=== PATIENT | male | born 1940 | race Caucasian/White ===

== ENCOUNTER 2018-01-06 14:55 | Inpatient (IN) ==
[2018-01-06] MEDS ORDERED: Aspirin 325 MG TABLET PO ONE (15:13)
[2018-01-06] MEDS ORDERED: methylPREDNISolone 125 MG/2 ML VIAL IVP ONE (15:13)
[2018-01-06] MEDS ORDERED: Ipratropium/Albuterol Neb 3 ML IH ONE (15:13)
--- NOTE | 2018-01-06 15:13 | Emergency Department Note ---
Disposition Clinical Impression: Acute exacerbation of chronic obstructive airways disease, Hypoxia Chest pain Qualifiers: Chest pain type: unspecified Qualified Code(s): R07.9 - Chest pain, unspecified Aspiration pneumonia Qualifiers: Aspiration pneumonia type: unspecified Laterality: bilateral Lung location: lower lobe of lung Qualified Code(s): J69.0 - Pneumonitis due to inhalation of food and vomit Disposition: Admitted As Inpatient Condition: Fair Referrals: All Odell DO [Primary Care Provider] - Forms: ED Satisfaction Letter Time of Disposition: 19:32 SOB HPI - General Chief Complaint: ED Shortness of Breath/Dyspnea Stated Complaint: ANNE Time Seen by Provider: 01/06/18 15:12 Source: patient Mode of arrival: ambulatory Limitations: no limitations Nursing Notes Reviewed: Yes Vital Signs Reviewed: Yes - History of Present Illness Patient is an 77-year-old male with past medical history of HTN, cataract surgery yesterday morning, COPD. He uses daily albuterol inhalers, not currently on steroids, occasional home O2 use. He presents today due to shortness of breath and substernal chest pain only during deep inspiration. He states that he had cataract surgery yesterday. He felt fine yesterday and then today he has felt short of breath. He does admit to mild productive cough as well. He states that he usually does not require home O2 but does have it as backup as needed. He has required O2 today for symptomatic relief of shortness of breath. He states that it is progressively worsening. Denies any other nausea, vomiting, fevers, diarrhea, abdominal pain. No previous TN or stents. - Related Data Home Medications Medication Instructions Recorded Confirmed Allopurinol [Zyloprim 100 MG] 100 mg PO DAILY 01/06/18 01/06/18 Aspirin Enteric Coated [Aspirin EC] 81 mg PO DAILY 01/06/18 01/06/18 Budesonide/Formoterol 80/4.5 2 puff IH BID 01/06/18 01/06/18 [Symbicort 80/4.5] Gatifloxacin [Zymaxid] 1 drop RIGHT EYE BID 01/06/18 01/06/18 Ipratropium Neb [Atrovent Neb] 0.5 mg IH Q6H 01/06/18 01/06/18 Ketorolac OPTH Soln [Acular] 1 drop RIGHT EYE BID 01/06/18 01/06/18 Levalbuterol Neb [Xopenex Neb] 0.63 mg IH Q6H 01/06/18 01/06/18 Olmesartan Medoxomil [Olmesartan 40 mg PO DAILY 01/06/18 01/06/18 Medoxomil] PrednisoLONE Acetate 1% Opth 1 drop RIGHT EYE BID 01/06/18 01/06/18 [PredFORTE 1%] Vit C/E/Zn/Coppr/Lutein/Zeaxan 1 each PO BID 01/06/18 01/06/18 [Preservision Areds 2 Softgel] hydroCHLOROthiazide 25 mg PO DAILY 01/06/18 01/06/18 [Hydrochlorothiazide] Allergies Allergy/AdvReac Type Severity Reaction Status Date / Time Powdered Inhalers Allergy Difficulty Uncoded 01/06/18 18:27 Breathing All systems ED: reviewed and negative except as stated. Constitutional: Denies: fever Cardiovascular: Reports: chest pain. Denies: palpitations Respiratory: Reports: dyspnea, wheezes. Denies: cough Gastrointestinal: Denies: abdominal pain, nausea, vomiting, diarrhea, constipation Genitourinary: Denies: urgency, dysuria, frequency, hematuria, discharge Musculoskeletal: Denies: back pain, neck pain Neurological: Denies: headache, weakness, numbness, paresthesias Past Medical History - Past Medical History Attestation: Yes The following information was validated with the patient. Source: patient Medical history: Reports: COPD Psychiatric history: Reports: no psych history - Social History Smoking Status: Former smoker Smokeless Tobacco Status: No Alcohol use: Reports: none Drug use: Reports: none Physical Exam - General Limitations: no limitations General appearance: alert, in distress - Head Head exam: atraumatic, normocephalic, normal inspection - Eye Eye exam: Present: normal appearance, PERRL, EOMI - ENT ENT exam: normal exam, normal oropharynx, mucous membranes moist - Neck Neck exam: Present: normal inspection, full ROM, trachea midline - Chest Chest inspection: Present: normal inspection, symmetric chest wall rise - Respiratory Respiratory exam: Present: accessory muscle use, other (Decreased aeration throughout with wheezing.). Absent: stridor - Cardiovascular Cardiovascular exam: Present: normal rhythm, tachycardia, normal heart sounds - Abdominal Exam Abdominal exam: Present: soft, Non-Tender. Absent: tenderness, distention, guarding, rebound, rigidity - Neurological Exam Neurological exam: Present: alert, oriented X3 - Psychiatric Psychiatric exam: Present: normal affect, normal mood - Skin Skin exam: Present: warm, dry, intact, normal color Course Course Narrative: Patient was tachycardic and hypoxic on presentation. Patient was placed on 2 L nasal cannula oxygen to keep saturation above 88%. Otherwise, the rest of the vitals were within normal limits. Physical exam showed a patient in mild to moderate respiratory distress, using accessory muscles, decreased aeration throughout. Otherwise, sinus tachycardia with no murmurs, abdomen soft and nontender. Currently concern for COPD exacerbation versus ACS. We will give the patient DuoNeb 3, Solu-Medrol, aspirin 325. We will also perform basic blood work, troponin, EKG, chest x-ray. He will likely require admission. BiPAP is on standby at this time as patient has increased work of breathing at this time. White blood cell count of 23.3. Troponin negative. The rest of the basic blood work was not concerning. Chest x-ray negative for any acute cardiopulmonary process. I discussed the patient's EKG with ems coordinator, Dr. Yudy Lyn. EKG showed ST depression in lead V3 and an incomplete right bundle-branch block. There is no previous EKG for comparison. We discussed the patient's presentation, vitals, lab results and imaging results along with EKG. She felt that at this time the patient did not meet STEMI criteria and recommended medical admission for further care. No acute intervention necessary at this time. In the meantime, will obtain CTA of the chest for further assessment of pulmonary embolism due to clear chest x-ray, tachycardia and hypoxia. 19:28 CTA positive for bibasilar pneumonia, suspicious for aspiration pneumonia. Otherwise no acute PE. Started the patient on Zosyn. I talked with the hospitalist about considering this possibly healthcare acquired pneumonia versus just aspiration pneumonia. Currently, I have only started the patient on Zosyn as I believe this is more aspiration in nature. Hospitalist agrees and did not want me to start vancomycin at this time. Chest X-Ray 01/06/18 15:12 IMPRESSION: Emphysematous changes. No focal airspace consolidation or pulmonary vascular congestion. D/ / Onel Ayoub / Onel Ayoub Interpreting Provider: Onel Ayoub Chest CTA 01/06/18 15:59 IMPRESSION: Examination limited by motion artifact. No evidence of acute pulmonary embolism within limitations of the examination. Bibasilar consolidation consistent with pneumonia. Small airway opacification likely mucous plugging. Alternatively, this could represent aspiration. There is no significant pleural effusion. D/ / Darshan Hoskins MD / Darshan Hoskins MD Interpreting Provider: Darshan Hoskins MD Chest X-Ray 01/06/18 15:12 IMPRESSION: Emphysematous changes. No focal airspace consolidation or pulmonary vascular congestion. D/ / Onel Ayoub / Onel Ayoub Interpreting Provider: Onel Ayoub Vital Signs Temperature 99.5 F 01/06/18 14:56 Pulse Rate 126 01/06/18 14:56 Respiratory Rate 34 01/06/18 14:56 Blood Pressure 166/89 01/06/18 14:56 O2 Sat by Pulse Oximetry 88 01/06/18 14:56 Temperature 99.5 F 01/06/18 14:56 Pulse Rate 116 01/06/18 17:53 Respiratory Rate 16 01/06/18 17:53 Blood Pressure 133/81 01/06/18 17:53 O2 Sat by Pulse Oximetry 94 01/06/18 17:53 Oxygen Delivery Oxygen Delivery Nasal Cannula Shortness of Breath/Dyspnea - MDM Narrative Medical decision making narrative: Patient was tachycardic and hypoxic on presentation. Patient was placed on 2 L nasal cannula oxygen to keep saturation above 88%. Otherwise, the rest of the vitals were within normal limits. Physical exam showed a patient in mild to moderate respiratory distress, using accessory muscles, decreased aeration throughout. Otherwise, sinus tachycardia with no murmurs, abdomen soft and nontender. Currently concern for COPD exacerbation versus ACS. We will give the patient DuoNeb 3, Solu-Medrol, aspirin 325. We will also perform basic blood work, troponin, EKG, chest x-ray. He will likely require admission. BiPAP is on standby at this time as patient has increased work of breathing at this time. White blood cell count of 23.3. Troponin negative. The rest of the basic blood work was not concerning. Chest x-ray negative for any acute cardiopulmonary process. I discussed the patient's EKG with ems coordinator, Dr. Yudy Lyn. EKG showed ST depression in lead V3 and an incomplete right bundle-branch block. There is no previous EKG for comparison. We discussed the patient's presentation, vitals, lab results and imaging results along with EKG. She felt that at this time the patient did not meet STEMI criteria and recommended medical admission for further care. No acute intervention necessary at this time. In the meantime, will obtain CTA of the chest for further assessment of pulmonary embolism due to clear chest x-ray, tachycardia and hypoxia. 19:28 CTA positive for bibasilar pneumonia, suspicious for aspiration pneumonia. Otherwise no acute PE. Started the patient on Zosyn. I talked with the hospitalist about considering this possibly healthcare acquired pneumonia versus just aspiration pneumonia. Currently, I have only started the patient on Zosyn as I believe this is more aspiration in nature. Hospitalist agrees and did not want me to start vancomycin at this time. - Medical Records Medical records reviewed: Yes I reviewed the patient's medical records. - Lab Data Lab results reviewed: Yes I reviewed the patient's lab results. Result diagrams: 01/06/18 15:18 01/06/18 15:18 Lab Results 01/06/18 01/06/18 01/06/18 Range/Units 15:18 15:18 15:18 WBC 23.3 H (4.3-11.1) K/mcL RBC 5.02 (4.19-5.50) M/mcL Hgb 15.1 (12.9-16.9) g/dL Hct 45.5 (37.5-50.1) % MCV 90.6 (83.0-100.0) fL MCH 30.1 (28.0-33.3) pg MCHC 33.2 (31.6-35.5) g/dL RDW 13.3 (11.5-14.5) % Plt Count 271 (140-400) K/mcL MPV 9.0 L (9.4-12.4) fL Immature Gran % 0.6 (0-4) % Seg Neutrophils % 89.7 % Lymphocytes % 3.6 % Monocytes % 5.2 % Eosinophils % 0.6 % Basophils % 0.3 % Neutrophils # 20.9 H (1.6-8.9) K/mcL Lymphocytes # 0.9 (0.6-4.6) K/mcL Monocytes # 1.2 (0.0-1.3) K/mcL Eosinophils # 0.2 (0.0-0.6) K/mcL Basophils # 0.1 (0.0-0.2) K/mcL Sodium 135 L (136-145) mEq/L Potassium 3.8 (3.5-5.1) mEq/L Chloride 97 L (98-107) mEq/L Carbon Dioxide 25 (23-29) mEq/L BUN 16 (8-23) mg/dL Creatinine 0.92 (0.70-1.30) mg/dL Est GFR ( Amer) > 60 (> 60) Est GFR (Non-Af Amer) > 60 (> 60) BUN/Creatinine Ratio 17 (6-26) Glucose 154 H (70-105) mg/dL Calculated Osmolality 284 (280-300) Lactic Acid 3.1 H (0.5-2.2) mmol/L Calcium 9.7 (8.6-10.3) mg/dL Troponin I < 0.03 (< 0.04) ng/mL B-Natriuretic Peptide (Less than 100) pg/mL Urine Color (Yellow) Urine Clarity (Clear) Urine pH (5.0-8.0) pH Units Ur Specific [place] (1.010-1.025) Urine Protein (Neg-Trace) mg/dL Urine Glucose (UA) (Normal) mg/dL Urine Ketones (Negative) mg/dL Urine Blood (Negative) Urine Nitrite (Negative) Urine Bilirubin (Negative) Urine Urobilinogen (Normal) mg/dL Ur Leukocyte Esterase (Negative) Ur Culture Indicated? (NO) 01/06/18 01/06/18 01/06/18 Range/Units 15:18 15:49 17:17 WBC (4.3-11.1) K/mcL RBC (4.19-5.50) M/mcL Hgb (12.9-16.9) g/dL Hct (37.5-50.1) % MCV (83.0-100.0) fL MCH (28.0-33.3) pg MCHC (31.6-35.5) g/dL RDW (11.5-14.5) % Plt Count (140-400) K/mcL MPV (9.4-12.4) fL Immature Gran % (0-4) % Seg Neutrophils % % Lymphocytes % % Monocytes % % Eosinophils % % Basophils % % Neutrophils # (1.6-8.9) K/mcL Lymphocytes # (0.6-4.6) K/mcL Monocytes # (0.0-1.3) K/mcL Eosinophils # (0.0-0.6) K/mcL Basophils # (0.0-0.2) K/mcL Sodium (136-145) mEq/L Potassium (3.5-5.1) mEq/L Chloride (98-107) mEq/L Carbon Dioxide (23-29) mEq/L BUN (8-23) mg/dL Creatinine (0.70-1.30) mg/dL Est GFR ( Amer) (> 60) Est GFR (Non-Af Amer) (> 60) BUN/Creatinine Ratio (6-26) Glucose (70-105) mg/dL Calculated Osmolality (280-300) Lactic Acid 2.5 H (0.5-2.2) mmol/L Calcium (8.6-10.3) mg/dL Troponin I (< 0.04) ng/mL B-Natriuretic Peptide 40 (Less than 100) pg/mL Urine Color Yellow (Yellow) Urine Clarity Clear (Clear) Urine pH 6.0 (5.0-8.0) pH Units Ur Specific [place] 1.023 (1.010-1.025) Urine Protein Negative (Neg-Trace) mg/dL Urine Glucose (UA) Normal (Normal) mg/dL Urine Ketones Trace H (Negative) mg/dL Urine Blood Negative (Negative) Urine Nitrite Negative (Negative) Urine Bilirubin Negative (Negative) Urine Urobilinogen Normal (Normal) mg/dL Ur Leukocyte Esterase Negative (Negative) Ur Culture Indicated? NO (NO) - Radiology Data Radiology results reviewed: Yes I reviewed the patient's radiology results. Chest X-Ray 01/06/18 15:12 IMPRESSION: Emphysematous changes. No focal airspace consolidation or pulmonary vascular congestion. D/ / Onel Ayoub / Onel Ayoub Interpreting Provider: Onel Ayoub Chest CTA 01/06/18 15:59 IMPRESSION: Examination limited by motion artifact. No evidence of acute pulmonary embolism within limitations of the examination. Bibasilar consolidation consistent with pneumonia. Small airway opacification likely mucous plugging. Alternatively, this could represent aspiration. There is no significant pleural effusion. D/ / Darshan Hoskins MD / Darshan Hoskins MD Interpreting Provider: Darshan Hoskins MD - EKG Data EKG attestation: Yes I reviewed and interpreted this EKG. EKG results narrative: 01/06/2018 at 15:40. Sinus tachycardia. Rate 133. ME 156. QRS 138. QTC 406. Left axis deviation. There is ST depression in lead V3. Otherwise, no ST elevation. Possible incompletely right bundle branch block. No previous EKG for comparison. S.B.A.R. - S.B.A.R. Situation: Demographics, MOA Background: Presenting Complaint, Relevant PMH, Meds, & Allergies Assessment: Vital Signs, Course and respsone to treatment, Exam Concerns, Patient/Family Expectation, Pertinant Lab Results Recommendation: Barrier(s) to disposition, Recommendation based on pending studies, treatments, or consults S.B.A.R. Report Given to: Dr. Nori PraterAThomas Repor Time: 19:32 Attestation Statement - Attestation Attestation: I, Wyatt Kothari DO, examined this patient [id number] and my medical decision-making was reviewed with Dr. Kendall Mar, Resident Physician. I agree with the documented findings, disposition and treatment plan as described except to the extent set forth below. Please see my progress notes for details.
[2018-01-06 15:27] LABS: Basophils # 0.1 K/mcL (0.0-0.2); Basophils % 0.3 %; Eosinophils # 0.2 K/mcL (0.0-0.6); Eosinophils % 0.6 %; Hematocrit 45.5 % (37.5-50.1); Hemoglobin 15.1 g/dL (12.9-16.9); Immature Granulocytes % 0.6 % (0-4); Lymphocytes # 0.9 K/mcL (0.6-4.6); Lymphocytes % 3.6 %; Mean Corpuscular HGB Conc 33.2 g/dL (31.6-35.5); Mean Corpuscular Hemoglobin 30.1 pg (28.0-33.3); Mean Corpuscular Volume 90.6 fL (83.0-100.0); Monocytes # 1.2 K/mcL (0.0-1.3); Monocytes % 5.2 %; Neutrophils # 20.9 K/mcL (1.6-8.9); Platelet Count 271 K/mcL (140-400); Red Blood Count 5.02 M/mcL (4.19-5.50); Red Cell Distribution Width 13.3 % (11.5-14.5); Segmented Neutrophils % 89.7 %
[2018-01-06 15:51] LABS: BUN/Creatinine Ratio 17 (6-26); Blood Urea Nitrogen 16 mg/dL (8-23); Calcium 9.7 mg/dL (8.6-10.3); Carbon Dioxide 25 mEq/L (23-29); Chloride 97 mEq/L (98-107); Glucose 154 mg/dL (70-105); Osmolality,Calculated 284 (280-300); Potassium 3.8 mEq/L (3.5-5.1); Sodium 135 mEq/L (136-145); eGFR For African Americans > 60 (> 60); eGFR For Non-African Americans > 60 (> 60)
[2018-01-06 15:52] LABS: Troponin I < 0.03 ng/mL (< 0.04)
[2018-01-06 16:02] LABS: Bilirubin,Urine Negative (Negative); Blood,Urine Negative (Negative); Clarity,Urine Clear (Clear); Color,Urine Yellow (Yellow); Glucose,Urine (UA) Normal (Normal); Ketones,Urine Trace mg/dL (Negative); Leukocyte Esterase,Urine Negative (Negative); Nitrite,Urine Negative (Negative); Protein,Urine Negative (Neg-Trace); Specific Gravity,Urine 1.023 (1.010-1.025); Urobilinogen,Urine Normal (Normal)
--- NOTE | 2018-01-06 16:02 | Emergency Department Note ---
Disposition Clinical Impression: Acute exacerbation of chronic obstructive airways disease, Chest pain, Aspiration pneumonia Disposition: Admitted As Inpatient Condition: Fair Referrals: All Odell DO [Primary Care Provider] - Forms: ED Satisfaction Letter Time of Disposition: 17:41 General Adult HPI - General Chief complaint: ED Shortness of Breath/Dyspnea Stated complaint: ANNE Time Seen by Provider: 01/06/18 15:12 Source: patient Mode of arrival: ambulatory Limitations: no limitations - History of Present Illness Pain Scale: 0 - Related Data Allergies Allergy/AdvReac Type Severity Reaction Status Date / Time No Known Allergies Allergy Verified 01/06/18 14:59 Constitutional: Denies: fever Cardiovascular: Reports: chest pain. Denies: palpitations Respiratory: Reports: dyspnea, wheezes. Denies: cough Gastrointestinal: Denies: abdominal pain, nausea, vomiting, diarrhea, constipation Genitourinary: Denies: urgency, dysuria, frequency, hematuria, discharge Musculoskeletal: Denies: back pain, neck pain Neurological: Denies: headache, weakness, numbness, paresthesias Past Medical History - Past Medical History Medical history: Reports: COPD Psychiatric history: Reports: no psych history - Social History Smoking Status: Former smoker Smokeless Tobacco Status: No Alcohol use: Reports: none Drug use: Reports: none Physical Exam - General Limitations: no limitations General appearance: alert, in distress Course Vital Signs Temperature 99.5 F 01/06/18 14:56 Pulse Rate 126 01/06/18 14:56 Respiratory Rate 34 01/06/18 14:56 Blood Pressure 166/89 01/06/18 14:56 O2 Sat by Pulse Oximetry 88 01/06/18 14:56 Temperature 99.5 F 01/06/18 14:56 Pulse Rate 123 01/06/18 17:12 Respiratory Rate 20 01/06/18 17:12 Blood Pressure 153/77 01/06/18 17:12 O2 Sat by Pulse Oximetry 94 01/06/18 17:12 Oxygen Delivery Oxygen Delivery Nasal Cannula Medical Decision Making - Lab Data Result diagrams: 01/06/18 15:18 01/06/18 15:18 Lab Results 01/06/18 01/06/18 01/06/18 Range/Units 15:18 15:18 15:18 WBC 23.3 H (4.3-11.1) K/mcL RBC 5.02 (4.19-5.50) M/mcL Hgb 15.1 (12.9-16.9) g/dL Hct 45.5 (37.5-50.1) % MCV 90.6 (83.0-100.0) fL MCH 30.1 (28.0-33.3) pg MCHC 33.2 (31.6-35.5) g/dL RDW 13.3 (11.5-14.5) % Plt Count 271 (140-400) K/mcL MPV 9.0 L (9.4-12.4) fL Immature Gran % 0.6 (0-4) % Seg Neutrophils % 89.7 % Lymphocytes % 3.6 % Monocytes % 5.2 % Eosinophils % 0.6 % Basophils % 0.3 % Neutrophils # 20.9 H (1.6-8.9) K/mcL Lymphocytes # 0.9 (0.6-4.6) K/mcL Monocytes # 1.2 (0.0-1.3) K/mcL Eosinophils # 0.2 (0.0-0.6) K/mcL Basophils # 0.1 (0.0-0.2) K/mcL Sodium 135 L (136-145) mEq/L Potassium 3.8 (3.5-5.1) mEq/L Chloride 97 L (98-107) mEq/L Carbon Dioxide 25 (23-29) mEq/L BUN 16 (8-23) mg/dL Creatinine 0.92 (0.70-1.30) mg/dL Est GFR ( Amer) > 60 (> 60) Est GFR (Non-Af Amer) > 60 (> 60) BUN/Creatinine Ratio 17 (6-26) Glucose 154 H (70-105) mg/dL Calculated Osmolality 284 (280-300) Lactic Acid 3.1 H (0.5-2.2) mmol/L Calcium 9.7 (8.6-10.3) mg/dL Troponin I < 0.03 (< 0.04) ng/mL B-Natriuretic Peptide (Less than 100) pg/mL Urine Color (Yellow) Urine Clarity (Clear) Urine pH (5.0-8.0) pH Units Ur Specific [place] (1.010-1.025) Urine Protein (Neg-Trace) mg/dL Urine Glucose (UA) (Normal) mg/dL Urine Ketones (Negative) mg/dL Urine Blood (Negative) Urine Nitrite (Negative) Urine Bilirubin (Negative) Urine Urobilinogen (Normal) mg/dL Ur Leukocyte Esterase (Negative) Ur Culture Indicated? (NO) 01/06/18 01/06/18 Range/Units 15:18 15:49 WBC (4.3-11.1) K/mcL RBC (4.19-5.50) M/mcL Hgb (12.9-16.9) g/dL Hct (37.5-50.1) % MCV (83.0-100.0) fL MCH (28.0-33.3) pg MCHC (31.6-35.5) g/dL RDW (11.5-14.5) % Plt Count (140-400) K/mcL MPV (9.4-12.4) fL Immature Gran % (0-4) % Seg Neutrophils % % Lymphocytes % % Monocytes % % Eosinophils % % Basophils % % Neutrophils # (1.6-8.9) K/mcL Lymphocytes # (0.6-4.6) K/mcL Monocytes # (0.0-1.3) K/mcL Eosinophils # (0.0-0.6) K/mcL Basophils # (0.0-0.2) K/mcL Sodium (136-145) mEq/L Potassium (3.5-5.1) mEq/L Chloride (98-107) mEq/L Carbon Dioxide (23-29) mEq/L BUN (8-23) mg/dL Creatinine (0.70-1.30) mg/dL Est GFR ( Amer) (> 60) Est GFR (Non-Af Amer) (> 60) BUN/Creatinine Ratio (6-26) Glucose (70-105) mg/dL Calculated Osmolality (280-300) Lactic Acid (0.5-2.2) mmol/L Calcium (8.6-10.3) mg/dL Troponin I (< 0.04) ng/mL B-Natriuretic Peptide 40 (Less than 100) pg/mL Urine Color Yellow (Yellow) Urine Clarity Clear (Clear) Urine pH 6.0 (5.0-8.0) pH Units Ur Specific [place] 1.023 (1.010-1.025) Urine Protein Negative (Neg-Trace) mg/dL Urine Glucose (UA) Normal (Normal) mg/dL Urine Ketones Trace H (Negative) mg/dL Urine Blood Negative (Negative) Urine Nitrite Negative (Negative) Urine Bilirubin Negative (Negative) Urine Urobilinogen Normal (Normal) mg/dL Ur Leukocyte Esterase Negative (Negative) Ur Culture Indicated? NO (NO) Attestation Statement - Attestation Attestation: I, Wyatt Kothari DO, examined this patient [id number] and my medical decision-making was reviewed with Dr. Kendall Mar, Resident Physician. I agree with the documented findings, disposition and treatment plan as described except to the extent set forth below. Please see my progress notes for details. 77-year-old male presents emergency room for evaluation of cough congestion and shortness of breath. Patient Lasix surgery completed yesterday for which he was sedated for approximately 3 hours. Since then he has had some difficulty with breathing and pain with inspiration. Patient does have a history of COPD. Denies any specific cardiac history. He has never been seen at this facility before. Currently denying fevers chills nausea vomiting or diarrhea. Denies any headache or vision change. He does have pain with deep inspiration. He says that when he breathes out or exhales he does not have any pain at all. He only has pain or discomfort when he breathes in. It is over the right chest wall. Patient otherwise is resting in the bed at this time he does appear to be in some moderate discomfort at this point. He also has some respiratory distress. Breathing treatments and steroids will be started. Antibiotic will be withheld until we find an infectious etiology. Patient's heart rate was initially 126 with concern for possible postsurgical related issue. CBC chemistry, troponin and urinalysis. Patient's chest x-ray is completed and does not show any focal signs of consolidation or pneumothorax. CT angiography of the chest will be completed looking for pulmonary emboli versus infection at this point. Patient is still persistently tachycardic. Breathing treatments were ordered. Breathing treatments have helped some of the pain and difficulty with deep inspiration this time. Patient will most likely need admission to the hospital for further evaluation treatment. See detailed documentation of the physical exam, medical intervention, medical decision-making and disposition in the resident physician's note. No critical care provider this patient's treatment course at this time. Patient does have diminished breath sounds bilaterally on evaluation the lungs. Heart is tachycardic but regular. Abdomen is soft nontender nondistended with no guarding no rigidity. Patient has no signs of pitting edema or swelling. 1600 Patient has tachycardia on EKG. There is some concern for possible ST segment depression in lead V3 no visible signs of ST segment elevation. This EKG will be sent onto his medical assistant dermatology for their review currently he does not meet STEMI criteria based on initial EKG but there is no comparison study. This was reviewed with the on-call medical assistant dermatology Dr. Yudy Lyn. She did not feel there is any diagnostic criteria based on the review. 1735 Patient found to have what appears to be consolidation consistent with pneumonia. There is also concern for possible mucus plugging versus aspiration. Patient will be covered for aspiration pneumonia admitted to hospital secondary to tachycardia hypoxia and increased work of breathing and chest discomfort. Aspirin was given here in the emergency room. EKG was nondiagnostic at this time.
[2018-01-06] MEDS ORDERED: Piperacillin/Tazobactam 3.375 GM in 0.9 % Sodium Chloride Mini Bag 100 ML IVPB ONE (17:39)
--- NOTE | 2018-01-06 20:46 | Internal Med History&Physical ---
Date of Encounter: 01/06/18 Time of Encounter: 19:00 Assessment and Plan (1) Hypoxia Current visit: Yes Status: Acute -In the ER, patient was found to be in acute hypoxic respiratory failure secondary to bibasilar pneumonia -Continue supplemental oxygenation and wean as tolerates. (2) Aspiration pneumonia Current visit: Yes Status: Acute -In the ER, CT of the chest showed bibasilar consolidation consistent with pneumonia -Due to concerns for aspiration pneumonia we will continue IV Zosyn started in the ER. Qualifiers: Aspiration pneumonia type: unspecified Laterality: bilateral Lung location: lower lobe of lung Qualified Code(s): J69.0 - Pneumonitis due to inhalation of food and vomit (3) Acute exacerbation of chronic obstructive airways disease Current visit: Yes Status: Acute -Secondary to above -Will continue duo nebs with oral prednisone (4) Gout Current visit: Yes Status: Acute -Continue home dose of allopurinol Qualifiers: Qualified Code(s): M10.9 - Gout, unspecified (5) DVT prophylaxis Current visit: Yes Status: Acute SCD prophylaxis Internal Medicine - H&P: HPI Chief complaint: Shortness of breath Admitted From: Home Plans for Post Hospital Care: Home History of present illness: Patient is a 77-year-old male with past medical history significant for COPD, hypertension and gout who presents to the ER on 01/06/18 due to shortness of breath. Patient reports of having cataract surgery on right eye on 01/05/18 where he states that he was lying on his back for hours during the surgery. Patient reports that when he woke up on 01/06/18 (POD#1) he was short of breath with productive cough and decided to come to the ER for evaluation. In the ER, patient was found to be in acute hypoxic respiratory failure and CT of the chest showed bibasilar consolidation consistent with pneumonia; patient also found to have leukocytosis with white blood cell count 22.3. Patient was started on IV Zosyn in the ER and will be admitted to the medical surgical floor for pneumonia with concerns for aspiration. Past Med Surg Social Fam HX - Past Medical History Medical history: COPD Psychiatric history: no psych history - Social History Smoking Status: Former smoker Smokeless Tobacco Status: No Alcohol use: none Drug use: none Internal Medicine - H&P: Meds Allopurinol [Zyloprim 100 MG] 100 mg PO DAILY 01/06/18 [History] Aspirin Enteric Coated [Aspirin EC] 81 mg PO DAILY 01/06/18 [History] Budesonide/Formoterol 80/4.5 [Symbicort 80/4.5] 2 puff IH BID 01/06/18 [History ] Gatifloxacin [Zymaxid] 1 drop RIGHT EYE BID 01/06/18 [History] Ipratropium Neb [Atrovent Neb] 0.5 mg IH Q6H 01/06/18 [History] Ketorolac OPTH Soln [Acular] 1 drop RIGHT EYE BID 01/06/18 [History] Levalbuterol Neb [Xopenex Neb] 0.63 mg IH Q6H 01/06/18 [History] Olmesartan Medoxomil [Olmesartan Medoxomil] 40 mg PO DAILY 01/06/18 [History] PrednisoLONE Acetate 1% Opth [PredFORTE 1%] 1 drop RIGHT EYE BID 01/06/18 [ History] Vit C/E/Zn/Coppr/Lutein/Zeaxan [Preservision Areds 2 Softgel] 1 each PO BID [History] hydroCHLOROthiazide [Hydrochlorothiazide] 25 mg PO DAILY 01/06/18 [History] 3 Allergy/AdvReac Type Severity Reaction Status Date / Time Powdered Inhalers Allergy Difficulty Uncoded 01/06/18 18:27 Breathing All Systems PM: A 10-system review of systems was performed and is negative for pertinent findings except as documented above in the HPI. - Constitutional Vitals: Temp Pulse Resp BP Pulse Ox 99.5 F 109 22 141/74 93 01/06/18 14:56 01/06/18 20:32 01/06/18 20:32 01/06/18 20:32 01/06/18 20:32 General appearance: Present: no acute distress - Head Head exam: Present: normocephalic - Eye Eye exam: Present: normal appearance - ENT ENT exam: Present: mucous membranes moist - Respiratory Respiratory exam: Present: rales, wheezes. Absent: accessory muscle use, respiratory distress - Cardiovascular Cardiovascular exam: Present: RRR, +S1, +S2. Absent: diastolic murmur, gallop, rubs, systolic murmur - GI/Abdominal GI/Abdominal exam: Present: normal bowel sounds, soft, no peritoneal signs. Absent: distended, tenderness - Neurological Exam Neurological exam: Present: oriented X3, no focal deficits - Psychiatric Psychiatric exam: Present: normal mood - Skin Skin exam: Present: normal color Internal Med - H&P Results - Labs CBC & Chem 7: 01/06/18 15:18 01/06/18 15:18
[2018-01-06] MEDS ORDERED: Naloxone 0.4 MG/ML INJ IVP PRN (20:56)
[2018-01-06] MEDS: Ipratropium/Albuterol Neb 3 ML IH SCH (23:23)
[2018-01-06] MEDS: Piperacillin/Tazobactam 3.375 GM in 0.9 % Sodium Chloride Mini Bag 100 ML IVPB SCH (23:53)
[2018-01-07] MEDS: Ipratropium/Albuterol Neb 3 ML IH SCH ×5 (03:36→21:04)
[2018-01-07 04:55] LABS: Hematocrit 41.2 % (37.5-50.1); Hemoglobin 13.7 g/dL (12.9-16.9); Lymphocytes % 2.9 %; Mean Corpuscular HGB Conc 33.3 g/dL (31.6-35.5); Mean Corpuscular Hemoglobin 29.8 pg (28.0-33.3); Mean Corpuscular Volume 89.8 fL (83.0-100.0); Mean Platelet Volume 9.4 fL (9.4-12.4); Platelet Count 250 K/mcL (140-400); Red Blood Count 4.59 M/mcL (4.19-5.50); Red Cell Distribution Width 13.2 % (11.5-14.5)
[2018-01-07 04:56] LABS: Basophils % 0.1 %; Lymphocytes # 0.8 K/mcL (0.6-4.6); Monocytes # 0.5 K/mcL (0.0-1.3); Neutrophils # 25.5 K/mcL (1.6-8.9)
[2018-01-07 05:10] LABS: BUN/Creatinine Ratio 18 (6-26); Blood Urea Nitrogen 20 mg/dL (8-23); Calcium 9.3 mg/dL (8.6-10.3); Carbon Dioxide 28 mEq/L (23-29); Chloride 100 mEq/L (98-107); Glucose 210 mg/dL (70-105); Osmolality,Calculated 293 (280-300); Sodium 137 mEq/L (136-145); eGFR For African Americans > 60 (> 60); eGFR For Non-African Americans > 60 (> 60)
[2018-01-07 05:38] LABS: Platelet Estimate Normal (Normal)
--- NOTE | 2018-01-07 08:48 | Internal Med Progress Note ---
<Gaudencio Carlin - Last Filed: 01/07/18 11:16> Date of Encounter: 01/07/18 Time of Encounter: 08:46 - Assessment and plan (1) Hypoxia Current Visit: Yes Status: Acute Assessment and plan: -In the ER, patient was found to be in acute hypoxic respiratory failure 2/2 bibasilar PNA -Continue supplemental oxygenation and wean as tolerates -DuoNeb 3 mL inhaled every 4 (2) Aspiration pneumonia Current Visit: Yes Status: Acute Assessment and plan: -In the ER, CT of the chest showed bibasilar consolidation consistent with PNA -Zosyn 3.375 g IV every 8 hours -Blood culture Qualifiers: Aspiration pneumonia type: unspecified Laterality: bilateral Lung location: lower lobe of lung Qualified Code(s): J69.0 - Pneumonitis due to inhalation of food and vomit (3) Acute exacerbation of chronic obstructive airways disease Current Visit: Yes Status: Acute Assessment and plan: -Secondary to above -Will continue duo nebs with oral prednisone (4) Gout Current Visit: Yes Status: Acute Assessment and plan: -Continue home dose of allopurinol (5) DVT prophylaxis Current Visit: Yes Status: Acute Assessment and plan: SCD prophylaxis - Subjective Interval history: 77 male. Presented with shortness of breath. On 01/06/18 postop day 1 from cataract surgery, became short of breath was found to be in acute hypoxic respiratory failure. CT of the chest demonstrated bibasilar consolidation consistent with pneumonia. Was tachycardic on presentation was placed on 2 L of oxygen via nasal cannula to keep saturation above 88%. Laboratory analysis demonstrated leukocytosis with white count of 22.3. Was started on Zosyn in the ER. Was also given DuoNebs 3, Solu-Medrol, ASA 325. Troponin was negative. EKG demonstrated ST depression in lead V3 and an incomplete right bundle branch block. Admitted for likely aspiration pneumonia. Patient was seen and examined at bedside this morning. States that he is feeling much better today. States that his SOB has greatly improved. States that every time he is given a dosae of steroids, he goughs up taveras colored sputum. Has not had a cough this morning. No complaints at this time. - Constitutional Vitals: Temp Pulse Resp BP Pulse Ox 98.6 F 93 16 121/75 94 01/07/18 07:04 01/07/18 07:04 01/07/18 07:13 01/07/18 07:04 01/07/18 07:13 General appearance: Present: no acute distress - Head Head exam: Present: atraumatic, normocephalic - Eye Eye exam: Present: PERRL, conjuntiva pink, sclera anicteric Pupils: Present: PERRL - Neck Neck exam general surgery: Present: supple, trachea midline. Absent: lymphadenopathy - Respiratory Respiratory exam: Present: decreased breath sounds, wheezes. Absent: accessory muscle use, rales, rhonchi - Cardiovascular Cardiovascular exam: Present: RRR, +S1, +S2. Absent: diastolic murmur, gallop, rubs, systolic murmur - Extremities Exam Extremities exam: Present: warm, radial pulses palpable and symmetrical. Absent : calf tenderness, cyanotic, pedal edema - Neurological Exam Neurological exam: Present: CN II-XII intact, oriented X3, no focal deficits. Absent: pronater drift, facial droop, speech deficit - Skin Skin exam: Present: dry, intact Internal Medicine: Result - Labs CBC & Chem 7: 01/07/18 04:31 01/07/18 04:31 Labs: Short CBC 01/07/18 Range/Units 04:31 WBC 27.1 H (4.3-11.1) K/mcL Hgb 13.7 (12.9-16.9) g/dL Hct 41.2 (37.5-50.1) % Plt Count 250 (140-400) K/mcL Neutrophils # 25.5 H (1.6-8.9) K/mcL BMP 01/07/18 04:31 Sodium 137 Potassium 4.0 Chloride 100 Carbon Dioxide 28 BUN 20 Creatinine 1.11 Glucose 210 H Calcium 9.3 - VTE Documentation of Mechanical Device: Venous foot pump, device Consult Discharge Plan - Plan Referrals: All Odell DO [Primary Care Provider] - <Tito Cordon - Last Filed: 01/07/18 11:45> Date of Encounter: 01/07/18 - Constitutional Vitals: Temp Pulse Resp BP Pulse Ox 98.6 F 97 15 141/83 93 01/07/18 11:37 01/07/18 11:37 01/07/18 11:37 01/07/18 11:37 01/07/18 11:37 Internal Medicine: Result - Labs CBC & Chem 7: 01/07/18 04:31 01/07/18 04:31 Labs: Short CBC 01/07/18 Range/Units 04:31 WBC 27.1 H (4.3-11.1) K/mcL Hgb 13.7 (12.9-16.9) g/dL Hct 41.2 (37.5-50.1) % Plt Count 250 (140-400) K/mcL Neutrophils # 25.5 H (1.6-8.9) K/mcL BMP 01/07/18 04:31 Sodium 137 Potassium 4.0 Chloride 100 Carbon Dioxide 28 BUN 20 Creatinine 1.11 Glucose 210 H Calcium 9.3 - Attending Attestation Acute hypoxic respiratory failure secondary to severe sepsis due to acute COPD exacerbation from possible aspiration pneumonia present upon admission Stop Zosyn and start Unasyn, sputum culture *Solu-Medrol IV DuoNeb nebs and oxygen therapy I examined this patient and my medical decision-making was reviewed with the Resident Physician. I agree with the documented findings, disposition and treatment plan as described except to the extent set forth below.
[2018-01-07] MEDS: PrednisoLONE Acetate 1% Opth 5 ML BOTTLE RIGHT EYE SCH ×2 (09:40→20:33)
[2018-01-07] MEDS: Ketorolac OPTH Soln 5 ML BOTTLE RIGHT EYE SCH ×2 (09:40→20:34)
[2018-01-07] MEDS: Gatifloxacin OPTH Drops 2.5 mL BOTTLE RIGHT EYE SCH ×2 (09:40→20:34)
[2018-01-07] MEDS: Piperacillin/Tazobactam 3.375 GM in 0.9 % Sodium Chloride Mini Bag 100 ML IVPB SCH (09:41)
[2018-01-07] MEDS ORDERED: MethylPREDNISolone 40 MG/ML VIAL IVP SCH (11:46)
[2018-01-07] MEDS ORDERED: Levalbuterol Neb 0.63 MG/3 ML IH SCH (12:00)
[2018-01-07] MEDS: hydroCHLOROthiazide 25 MG TABLET PO SCH (12:59)
[2018-01-07] MEDS: Ampicillin/Sulbactam 1,500 MG in 0.9 % Sodium Chloride Mini Bag 100 ML IVPB SCH ×3 (13:00→23:20)
[2018-01-07] MEDS ORDERED: Dextrose Gel 15 GM/37.5 ML TUBE PO PRN ×2 (14:11)
[2018-01-07] MEDS ORDERED: D5% in Water 1,000 ML IVC PRN (14:11)
[2018-01-07] MEDS ORDERED: *HR* Dextrose 50 % in Water (Syg) 50 ML SYRINGE IVP PRN (14:11)
[2018-01-07] MEDS: Ondansetron 4 MG/2 ML VIAL IVP PRN ×2 (14:45→23:08)
[2018-01-07] MEDS: Insulin LISPRO 300 UNITS/3 ML VIAL SQ SCH ×2 (17:54→20:34)
[2018-01-07] MEDS: MethylPREDNISolone 40 MG/ML VIAL IVP SCH (20:33)
[2018-01-08] MEDS ORDERED: *HR* Promethazine 25 MG/ML VIAL IVP PRN (00:12)
[2018-01-08] MEDS: Ipratropium/Albuterol Neb 3 ML IH SCH ×7 (00:27→23:37)
[2018-01-08] MEDS ORDERED: Metoclopramide 10 MG/2 ML VIAL IVP ONE ×2 (03:01→03:02)
[2018-01-08] MEDS: Ampicillin/Sulbactam 1,500 MG in 0.9 % Sodium Chloride Mini Bag 100 ML IVPB SCH (05:26)
[2018-01-08] MEDS: MethylPREDNISolone 40 MG/ML VIAL IVP SCH ×3 (05:26→20:57)
[2018-01-08] MEDS: Ondansetron 4 MG/2 ML VIAL IVP PRN (05:27)
--- NOTE | 2018-01-08 06:31 | Electrocardiograph Report ---
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
[2018-01-08 06:49] LABS: Basophils % 0.1 %; Monocytes % 3.4 %; Red Cell Distribution Width 13.2 % (11.5-14.5)
[2018-01-08 06:50] LABS: Hematocrit 41.9 % (37.5-50.1); Hemoglobin 13.8 g/dL (12.9-16.9); Immature Granulocytes % 0.9 % (0-4); Lymphocytes # 0.9 K/mcL (0.6-4.6); Lymphocytes % 3.3 %; Mean Corpuscular HGB Conc 32.9 g/dL (31.6-35.5); Mean Corpuscular Hemoglobin 29.9 pg (28.0-33.3); Mean Corpuscular Volume 90.9 fL (83.0-100.0); Mean Platelet Volume 9.6 fL (9.4-12.4); Monocytes # 0.9 K/mcL (0.0-1.3); Neutrophils # 25.1 K/mcL (1.6-8.9); Platelet Count 283 K/mcL (140-400); Red Blood Count 4.61 M/mcL (4.19-5.50); Segmented Neutrophils % 92.3 %
[2018-01-08] MEDS ORDERED: Pantoprazole 80 MG in 0.9 % Sodium Chloride 50 ML IVPB ONE (06:51)
[2018-01-08] MEDS ORDERED: Pantoprazole 40 MG in 0.9 % Sodium Chloride Mini Bag 100 ML IVC SCH (07:00)
[2018-01-08 08:05] LABS: Platelet Estimate Normal (Normal)
[2018-01-08] MEDS: Gatifloxacin OPTH Drops 2.5 mL BOTTLE RIGHT EYE SCH ×2 (08:59→21:01)
[2018-01-08 09:03] LABS: BUN/Creatinine Ratio 30 (6-26); Blood Urea Nitrogen 29 mg/dL (8-23); Calcium 9.7 mg/dL (8.6-10.3); Carbon Dioxide 37 mEq/L (23-29); Chloride 95 mEq/L (98-107); Glucose 181 mg/dL (70-105); Osmolality,Calculated 298 (280-300); Potassium 4.2 mEq/L (3.5-5.1); Sodium 139 mEq/L (136-145); eGFR For African Americans > 60 (> 60); eGFR For Non-African Americans > 60 (> 60)
[2018-01-08] MEDS: hydroCHLOROthiazide 25 MG TABLET PO SCH (09:04)
[2018-01-08] MEDS: PrednisoLONE Acetate 1% Opth 5 ML BOTTLE RIGHT EYE SCH ×2 (09:04→20:54)
[2018-01-08] MEDS: Aspirin Enteric Coated 81 MG Tablet PO SCH (09:04)
[2018-01-08] MEDS: Insulin LISPRO 300 UNITS/3 ML VIAL SQ SCH ×4 (09:05→21:01)
[2018-01-08] MEDS: Ketorolac OPTH Soln 5 ML BOTTLE RIGHT EYE SCH ×2 (09:05→20:57)
--- NOTE | 2018-01-08 10:42 | Internal Med Progress Note ---
<Gaudencio Carlin - Last Filed: 01/08/18 14:33> Date of Encounter: 01/08/18 Time of Encounter: 10:41 - Assessment and plan (1) Nausea & vomiting Current Visit: Yes Status: Acute (2) Hypoxia Current Visit: Yes Status: Acute Assessment and plan: -In the ER, patient was found to be in acute hypoxic respiratory failure 2/2 bibasilar PNA -Continue supplemental oxygenation and wean as tolerates -DuoNeb 3 mL inhaled every 4 (3) Aspiration pneumonia Current Visit: Yes Status: Acute Assessment and plan: -In the ER, CT of the chest showed bibasilar consolidation consistent with PNA -IV Levaquin -IV Flagyl Qualifiers: Aspiration pneumonia type: unspecified Laterality: bilateral Lung location: lower lobe of lung Qualified Code(s): J69.0 - Pneumonitis due to inhalation of food and vomit (4) Acute exacerbation of chronic obstructive airways disease Current Visit: Yes Status: Acute Assessment and plan: -Secondary to above -Will continue duo nebs with oral prednisone (5) Gout Current Visit: Yes Status: Acute Assessment and plan: -Continue home dose of allopurinol - Constitutional Vitals: Temp Pulse Resp BP Pulse Ox 97.9 F 101 18 170/99 92 01/08/18 07:47 01/08/18 07:47 01/08/18 07:47 01/08/18 07:47 01/08/18 09:02 General appearance: Present: no acute distress - Head Head exam: Present: atraumatic, normocephalic - Eye Eye exam: Present: PERRL, conjuntiva pink, sclera anicteric Pupils: Present: PERRL - Neck Neck exam general surgery: Present: supple, trachea midline. Absent: lymphadenopathy - Respiratory Respiratory exam: Present: CTAB. Absent: accessory muscle use, rales, rhonchi, wheezes - GI/Abdominal GI/Abdominal exam: Present: normal bowel sounds, soft, no peritoneal signs. Absent: distended, tenderness - Extremities Exam Extremities exam: Present: warm, radial pulses palpable and symmetrical. Absent : calf tenderness, cyanotic, pedal edema - Neurological Exam Neurological exam: Present: CN II-XII intact, oriented X3, no focal deficits. Absent: pronater drift, facial droop, speech deficit - Skin Skin exam: Present: dry, intact Internal Medicine: Result - Labs CBC & Chem 7: 01/08/18 06:08 01/08/18 07:59 Labs: Short CBC 01/08/18 Range/Units 06:08 WBC 27.2 H (4.3-11.1) K/mcL Hgb 13.8 (12.9-16.9) g/dL Hct 41.9 (37.5-50.1) % Plt Count 283 (140-400) K/mcL Neutrophils # 25.1 H (1.6-8.9) K/mcL BMP 01/08/18 07:59 Sodium 139 Potassium 4.2 Chloride 95 L Carbon Dioxide 37 H BUN 29 H Creatinine 0.96 Glucose 181 H Calcium 9.7 - Impressions Impressions Abdomen/Pelvis CT 01/08/18 08:00 IMPRESSION: Duodenitis. Partial improvement in bibasilar lung consolidation. D/ / 01/08/2018 09:52:56 Juan Abdi MD / mary Interpreting Provider: Juan Abdi MD - VTE Documentation of Mechanical Device: Intermittent pneumatic compression device Consult Discharge Plan - Plan Referrals: All Odell DO [Primary Care Provider] - 01/15/18 9:30 am <Tito Cordon H - Last Filed: 01/08/18 14:53> Date of Encounter: 01/08/18 - Constitutional Vitals: Temp Pulse Resp BP Pulse Ox 98.1 F 104 15 156/91 91 01/08/18 11:42 01/08/18 11:42 01/08/18 11:42 01/08/18 11:42 01/08/18 11:42 Internal Medicine: Result - Labs CBC & Chem 7: 01/08/18 06:08 01/08/18 07:59 Labs: Short CBC 01/08/18 Range/Units 06:08 WBC 27.2 H (4.3-11.1) K/mcL Hgb 13.8 (12.9-16.9) g/dL Hct 41.9 (37.5-50.1) % Plt Count 283 (140-400) K/mcL Neutrophils # 25.1 H (1.6-8.9) K/mcL BMP 01/08/18 07:59 Sodium 139 Potassium 4.2 Chloride 95 L Carbon Dioxide 37 H BUN 29 H Creatinine 0.96 Glucose 181 H Calcium 9.7 - Impressions Impressions Abdomen/Pelvis CT 01/08/18 08:00 IMPRESSION: Duodenitis. Partial improvement in bibasilar lung consolidation. D/ / 01/08/2018 09:52:56 Juan Abdi MD [facility] Inter[facility]ting Provider: Juan Abdi MD - Attending Attestation Acute hypoxic respiratory failure secondary to severe sepsis due to acute COPD exacerbation from possible aspiration pneumonia present upon admission and new developing acute duodenitis Stopped Zosyn, stop Unasyn, start Levaquin and Flagyl IV *Solu-Medrol IV consider NGtube due to severe gastric distention DuoNeb nebs and oxygen therapy I examined this patient and my medical decision-making was reviewed with the Resident Physician. I agree with the documented findings, disposition and treatment plan as described except to the extent set forth below.
[2018-01-08] MEDS: MetroNIDAZOLE 500 MG/100 ML 500 MG/100 ML BAG IVPB SCH ×2 (13:42→18:03)
[2018-01-08] MEDS: Levofloxacin 750 MG/150 ML 750 MG/150 ML BAG IVPB SCH (15:25)
--- NOTE | 2018-01-08 16:52 | Electrocardiograph Report ---
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
[2018-01-08] MEDS: Pantoprazole 40 MG VIAL IVP SCH (18:03)
[2018-01-08] MEDS ORDERED: Acetaminophen 325 MG TABLET PO PRN (21:26)
[2018-01-08] MEDS ORDERED: Acetaminophen 650 MG RECTAL SUPP RC PRN (22:00)
[2018-01-08] MEDS: 0.9 % Sodium Chloride 1,000 ML IVC SCH (22:26)
--- NOTE | 2018-01-09 00:29 | Event Note ---
Date of Encounter: 01/08/18 Time of Encounter: 21:19 Alerted by pts. nurse that pt. was meeting sepsis criteria w/WBC of 27.2, HR of 99, RR of 20. 1L 0.9 NS bolus ordered. Stat lactic acid ordered which was 1.6. Pt. actively receiving IVPB levaquin and Flagyl for infection coverage. Tylenol 650 mg by mouth ordered when necessary. Continue to monitor patient for sepsis criteria notify provider changes in status.
[2018-01-09] MEDS: MetroNIDAZOLE 500 MG/100 ML 500 MG/100 ML BAG IVPB SCH ×3 (02:16→16:36)
[2018-01-09] MEDS: 0.9 % Sodium Chloride 1,000 ML IVC SCH (02:16)
[2018-01-09] MEDS: MethylPREDNISolone 40 MG/ML VIAL IVP SCH ×3 (04:25→20:55)
[2018-01-09] MEDS: Ipratropium/Albuterol Neb 3 ML IH SCH ×6 (04:33→23:42)
[2018-01-09] MEDS: Pantoprazole 40 MG VIAL IVP SCH ×2 (06:16→16:36)
[2018-01-09] MEDS: Aspirin Enteric Coated 81 MG Tablet PO SCH (07:59)
[2018-01-09] MEDS: Levofloxacin 750 MG/150 ML 750 MG/150 ML BAG IVPB SCH (07:59)
[2018-01-09] MEDS: hydroCHLOROthiazide 25 MG TABLET PO SCH (07:59)
[2018-01-09] MEDS: Insulin LISPRO 300 UNITS/3 ML VIAL SQ SCH ×4 (08:00→20:55)
[2018-01-09] MEDS: Gatifloxacin OPTH Drops 2.5 mL BOTTLE RIGHT EYE SCH ×2 (08:00→20:54)
[2018-01-09] MEDS: PrednisoLONE Acetate 1% Opth 5 ML BOTTLE RIGHT EYE SCH ×2 (08:00→20:54)
[2018-01-09] MEDS: Ketorolac OPTH Soln 5 ML BOTTLE RIGHT EYE SCH ×2 (08:01→20:54)
--- NOTE | 2018-01-09 08:10 | Internal Med Progress Note ---
<Gaudencio Carlin - Last Filed: 01/09/18 12:00> Date of Encounter: 01/09/18 Time of Encounter: 08:08 - Assessment and plan (1) Sepsis Current Visit: Yes Status: Acute Assessment and plan: This morning, patient was meeting sepsis criteria with a white count of 27.2, heart rate of 99, and respiratory rate of 20. -0.9 normal saline bolus was ordered. -A stat lactic acid was ordered which was 1.6. -Patient is currently receiving IV Levaquin and Flagyl -Tylenol 650 mg by mouth when necessary -Vital signs have improved -Continue to monitor for changes in status (2) Duodenitis Current Visit: Yes Status: Acute Assessment and plan: Abdominal/pelvic CT performed on 01/08/18 demonstrated the presence of duodenitis. -Patient has gastric distention; consider NG tube -Nothing by mouth except medications -Phenergan 12.5 mg IV every 6 hours when necessary -Protonix 40 mg IV every 12 hours -Zofran 4 mg IV every 6 hours when necessary -Levaquin 750 mg IV daily -Flagyl 500 mg IV every 8 hours (3) Hypoxia Current Visit: Yes Status: Acute Assessment and plan: -In the ER, patient was found to be in acute hypoxic respiratory failure 2/2 bibasilar PNA -Continue supplemental oxygenation and wean as tolerates -DuoNeb 3 mL inhaled every 4 (4) Aspiration pneumonia Current Visit: Yes Status: Acute Assessment and plan: -In the ER, CT of the chest showed bibasilar consolidation consistent with PNA -Levaquin 750 mg IV daily -Flagyl 500 mg IV every 8 hours -Solu-Medrol 40 mg IV every 8 Qualifiers: Aspiration pneumonia type: unspecified Laterality: bilateral Lung location: lower lobe of lung Qualified Code(s): J69.0 - Pneumonitis due to inhalation of food and vomit (5) Acute exacerbation of chronic obstructive airways disease Current Visit: Yes Status: Acute Assessment and plan: -Secondary to above -Will continue duo nebs with oral prednisone (6) Gout Current Visit: Yes Status: Acute Assessment and plan: -Continue home dose of allopurinol - Subjective Interval history: Patient was seen and examined at bedside this morning. He reports that he is feeling well today. Denies having any respiratory distress. Denies fever, chills, nausea, vomiting, sputum production, and cough. He is resting comfortably in bed and has no complaints at this time. - Constitutional Vitals: Temp Pulse Resp BP Pulse Ox 98.2 F 88 15 130/57 91 01/09/18 07:00 01/09/18 07:00 01/09/18 07:00 01/09/18 07:00 01/09/18 07:00 General appearance: Present: no acute distress - Head Head exam: Present: atraumatic, normocephalic - Eye Eye exam: Present: PERRL, conjuntiva pink, sclera anicteric Pupils: Present: PERRL - Neck Neck exam general surgery: Present: supple, trachea midline. Absent: lymphadenopathy - Respiratory Respiratory exam: Present: decreased breath sounds, wheezes. Absent: accessory muscle use, rales, rhonchi - Cardiovascular Cardiovascular exam: Present: RRR, +S1, +S2. Absent: diastolic murmur, gallop, rubs, systolic murmur - Extremities Exam Extremities exam: Present: warm, radial pulses palpable and symmetrical. Absent : calf tenderness, cyanotic, pedal edema - Skin Skin exam: Present: dry, intact Internal Medicine: Result - Labs CBC & Chem 7: 01/09/18 09:51 01/09/18 09:51 Labs: BMP 01/08/18 07:59 Sodium 139 Potassium 4.2 Chloride 95 L Carbon Dioxide 37 H BUN 29 H Creatinine 0.96 Glucose 181 H Calcium 9.7 - Impressions Impressions Abdomen/Pelvis CT 01/08/18 08:00 IMPRESSION: Duodenitis. Partial improvement in bibasilar lung consolidation. D/ / 01/08/2018 09:52:56 Juan Abdi MD / mary Interpreting Provider: Juan Abdi MD - VTE Documentation of Mechanical Device: Intermittent pneumatic compression device Consult Discharge Plan - Plan Referrals: All Odell DO [Primary Care Provider] - 01/15/18 9:30 am <Tito Cordon - Last Filed: 01/09/18 15:11> Date of Encounter: 01/09/18 - Constitutional Vitals: Temp Pulse Resp BP Pulse Ox 97.9 F 94 15 136/80 91 01/09/18 15:02 01/09/18 15:02 01/09/18 15:02 01/09/18 15:02 01/09/18 15:02 Internal Medicine: Result - Labs CBC & Chem 7: 01/09/18 09:51 01/09/18 09:51 Labs: Short CBC 01/09/18 Range/Units 09:51 WBC 17.4 H (4.3-11.1) K/mcL Hgb 12.7 L (12.9-16.9) g/dL Hct 39.3 (37.5-50.1) % Plt Count 250 (140-400) K/mcL BMP 01/09/18 09:51 Sodium 141 Potassium 4.1 Chloride 101 Carbon Dioxide 33 H BUN 32 H Creatinine 1.02 Glucose 153 H Calcium 8.4 L - Impressions Impressions Abdomen/Pelvis CT 01/08/18 08:00 IMPRESSION: Duodenitis. Partial improvement in bibasilar lung consolidation. D/ / 01/08/2018 09:52:56 Juan Abdi MD / mary Interpreting Provider: Juan Abdi MD - Attending Attestation Acute hypoxic respiratory failure secondary to severe sepsis due to acute COPD exacerbation from possible aspiration pneumonia present upon admission and new developing acute duodenitis Stopped Zosyn, stop Unasyn, continue Levaquin and Flagyl IV day #2 *Solu-Medrol IV consider NGtube due to severe gastric distention DuoNeb nebs and oxygen therapy family requested Pulmonary consult I examined this patient and my medical decision-making was reviewed with the Resident Physician. I agree with the documented findings, disposition and treatment plan as described except to the extent set forth below.
[2018-01-09 10:25] LABS: Hematocrit 39.3 % (37.5-50.1); Hemoglobin 12.7 g/dL (12.9-16.9); Mean Corpuscular HGB Conc 32.3 g/dL (31.6-35.5); Mean Corpuscular Hemoglobin 30.5 pg (28.0-33.3); Mean Corpuscular Volume 94.2 fL (83.0-100.0); Mean Platelet Volume 9.5 fL (9.4-12.4); Platelet Count 250 K/mcL (140-400); Red Blood Count 4.17 M/mcL (4.19-5.50); Red Cell Distribution Width 13.2 % (11.5-14.5)
[2018-01-09 10:44] LABS: BUN/Creatinine Ratio 31 (6-26); Blood Urea Nitrogen 32 mg/dL (8-23); Calcium 8.4 mg/dL (8.6-10.3); Carbon Dioxide 33 mEq/L (23-29); Chloride 101 mEq/L (98-107); Glucose 153 mg/dL (70-105); Osmolality,Calculated 302 (280-300); Potassium 4.1 mEq/L (3.5-5.1); Sodium 141 mEq/L (136-145); eGFR For African Americans > 60 (> 60); eGFR For Non-African Americans > 60 (> 60)
--- NOTE | 2018-01-09 15:06 | Pulmonology Consult Note ---
Date of Encounter: 01/09/18 Time of Encounter: 14:00 Assessment and Plan (1) Acute and chronic respiratory failure Current Visit: Yes Status: Acute Patient should use O2 at home but he is not using at home now with acute on chronic hypoxic respiratory failure to keep SPO2 around 90% Qualifiers: Respiratory failure complication: hypoxia Qualified Code(s): J96.21 - Acute and chronic respiratory failure with hypoxia (2) Acute exacerbation of chronic obstructive airways disease Current Visit: Yes Status: Acute To continue bronchodilators and steroids (3) Aspiration pneumonia Current Visit: Yes Status: Acute To continue incentive spirometry , flutter valve to send sputum c/s . To continue current regimen of antibiotics Qualifiers: Aspiration pneumonia type: unspecified Laterality: bilateral Lung location: lower lobe of lung Qualified Code(s): J69.0 - Pneumonitis due to inhalation of food and vomit History of Present Illness Consult date: 01/09/18 Requesting physician: Delroy Hurst Reason for consult: dyspnea, cough, COPD Chief complaint: shortness of breadth and cough History of present illness: 77 year old male with past medical history significant for former smoker , Severe COPD with panacinar emphysema with not much exacerbations in the past comes with increase shortness of breadth , cough and sputum production , has some on and off abdominal pain, denies any chest pain or tightness , , denies any hemoptysis patient admitted bilateral basilar pneumonia most likely due to aspiration and COPD exacerbation Past Med Surg Social Fam HX - Past Medical History Medical history: COPD, hypertension Psychiatric history: no psych history, anxiety - Social History Smoking Status: Former smoker Smokeless Tobacco Status: No Alcohol use: none Drug use: none - Family History Mother History Unknown: Yes Adopted: No Family Member Ethnicity: Non- Living Status: Age at : 76 Cause of : cancer Hx Family Cancer: Yes Medications and Allergies Allopurinol [Zyloprim 100 MG] 100 mg PO DAILY 01/06/18 [History] Aspirin Enteric Coated [Aspirin EC] 81 mg PO DAILY 01/06/18 [History] Budesonide/Formoterol 80/4.5 [Symbicort 80/4.5] 2 puff IH BID 01/06/18 [History ] Gatifloxacin [Zymaxid] 1 drop RIGHT EYE BID 01/06/18 [History] Ipratropium Neb [Atrovent Neb] 0.5 mg IH Q6H 01/06/18 [History] Ketorolac OPTH Soln [Acular] 1 drop RIGHT EYE BID 01/06/18 [History] Levalbuterol Neb [Xopenex Neb] 0.63 mg IH Q6H 01/06/18 [History] Olmesartan Medoxomil [Olmesartan Medoxomil] 40 mg PO DAILY 01/06/18 [History] PrednisoLONE Acetate 1% Opth [PredFORTE 1%] 1 drop RIGHT EYE BID 01/06/18 [ History] Vit C/E/Zn/Coppr/Lutein/Zeaxan [Preservision Areds 2 Softgel] 1 each PO BID [History] hydroCHLOROthiazide [Hydrochlorothiazide] 25 mg PO DAILY 01/06/18 [History] 3 Allergy/AdvReac Type Severity Reaction Status Date / Time Powdered Inhalers Allergy Difficulty Uncoded 01/06/18 18:27 Breathing All Systems: The remainder of the systems were reviewed and are negative Physical Examination Vital Signs: Vital Signs, Last 4 Hours Temp Pulse Resp BP Pulse Ox 01/09/18 15:02 97.9 F 94 15 136/80 91 01/09/18 13:44 16 139/76 93 Auscultation: bilateral: wheezes Gastrointestinal: tender (epigastric pain ) Results - Laboratory Findings CBC and BMP: 01/09/18 09:51 01/09/18 09:51 Abnormal lab findings: Abnormal lab results WBC 17.4 K/mcL (4.3-11.1) H 01/09/18 09:51 RBC 4.17 M/mcL (4.19-5.50) L 01/09/18 09:51 Hgb 12.7 g/dL (12.9-16.9) L 01/09/18 09:51 Neutrophils # 25.1 K/mcL (1.6-8.9) H 01/08/18 06:08 Carbon Dioxide 33 mEq/L (23-29) H 01/09/18 09:51 BUN 32 mg/dL (8-23) H 01/09/18 09:51 BUN/Creatinine Ratio 31 (6-26) H 01/09/18 09:51 Glucose 153 mg/dL (70-105) H 01/09/18 09:51 POC Glucose 140 mg/dL (68-89) H 01/08/18 16:04 Calculated Osmolality 302 (280-300) H 01/09/18 09:51 Calcium 8.4 mg/dL (8.6-10.3) L 01/09/18 09:51 Urine Ketones Trace mg/dL (Negative) H 01/06/18 15:49 - Clinical Findings Intake & Output: Intake & Output 01/08/18 01/09/18 01/09/18 23:59 07:59 15:59 Intake Total 1250 / 1250 100 / 100 800 / 800 Output Total 0 / 0 350 / 350 800 / 800 Balance 1250 / 1250 -250 / -250 0 / 0 Weight 101 kg Consult Discharge Plan - Plan Referrals: All Odell DO [Primary Care Provider] - 01/15/18 9:30 am
[2018-01-10] MEDS: MetroNIDAZOLE 500 MG/100 ML 500 MG/100 ML BAG IVPB SCH ×3 (01:18→17:04)
[2018-01-10] MEDS: MethylPREDNISolone 40 MG/ML VIAL IVP SCH ×3 (03:47→20:15)
[2018-01-10] MEDS: Ipratropium/Albuterol Neb 3 ML IH SCH ×6 (04:08→23:09)
[2018-01-10] MEDS: Pantoprazole 40 MG VIAL IVP SCH ×2 (05:10→17:04)
[2018-01-10 05:43] LABS: Basophils % 0.2 %; Hematocrit 40.9 % (37.5-50.1); Hemoglobin 13.3 g/dL (12.9-16.9); Lymphocytes # 0.6 K/mcL (0.6-4.6); Lymphocytes % 4.7 %; Mean Corpuscular HGB Conc 32.5 g/dL (31.6-35.5); Mean Corpuscular Hemoglobin 29.8 pg (28.0-33.3); Mean Corpuscular Volume 91.5 fL (83.0-100.0); Mean Platelet Volume 9.5 fL (9.4-12.4); Monocytes # 0.5 K/mcL (0.0-1.3); Monocytes % 4.1 %; Neutrophils # 11.3 K/mcL (1.6-8.9); Platelet Count 253 K/mcL (140-400); Red Blood Count 4.47 M/mcL (4.19-5.50); Red Cell Distribution Width 13.1 % (11.5-14.5)
[2018-01-10 05:50] LABS: BUN/Creatinine Ratio 28 (6-26); Blood Urea Nitrogen 26 mg/dL (8-23); Calcium 8.6 mg/dL (8.6-10.3); Carbon Dioxide 30 mEq/L (23-29); Chloride 97 mEq/L (98-107); Glucose 173 mg/dL (70-105); Osmolality,Calculated 293 (280-300); Sodium 137 mEq/L (136-145); eGFR For African Americans > 60 (> 60); eGFR For Non-African Americans > 60 (> 60)
[2018-01-10] MEDS: Aspirin Enteric Coated 81 MG Tablet PO SCH (08:04)
[2018-01-10] MEDS: hydroCHLOROthiazide 25 MG TABLET PO SCH (08:04)
[2018-01-10] MEDS: Levofloxacin 750 MG/150 ML 750 MG/150 ML BAG IVPB SCH (08:05)
[2018-01-10] MEDS: PrednisoLONE Acetate 1% Opth 5 ML BOTTLE RIGHT EYE SCH ×2 (08:05→20:20)
[2018-01-10] MEDS: Ketorolac OPTH Soln 5 ML BOTTLE RIGHT EYE SCH ×2 (08:12→20:13)
[2018-01-10] MEDS: Gatifloxacin OPTH Drops 2.5 mL BOTTLE RIGHT EYE SCH ×2 (08:21→20:18)
[2018-01-10] MEDS: Insulin LISPRO 300 UNITS/3 ML VIAL SQ SCH ×4 (08:21→22:30)
--- NOTE | 2018-01-10 10:35 | Internal Med Progress Note ---
<Gaudencio Carlin - Last Filed: 01/10/18 11:58> Date of Encounter: 01/10/18 Time of Encounter: 10:34 - Assessment and plan (1) Sepsis Current Visit: Yes Status: Acute Assessment and plan: Patient is currently receiving IV Levaquin and Flagyl -Tylenol 650 mg by mouth when necessary -Vital signs have improved -Continue to monitor for changes in status (2) Duodenitis Current Visit: Yes Status: Acute Assessment and plan: Abdominal/pelvic CT performed on 01/08/18 demonstrated the presence of duodenitis. -Patient has gastric distention; consider NG tube -Nothing by mouth except medications -Phenergan 12.5 mg IV every 6 hours when necessary -Protonix 40 mg IV every 12 hours -Zofran 4 mg IV every 6 hours when necessary -Levaquin 750 mg IV daily; day #3 -Flagyl 500 mg IV every 8 hours; day #3 (3) Hypoxia Current Visit: Yes Status: Acute Assessment and plan: -In the ER, patient was found to be in acute hypoxic respiratory failure 2/2 bibasilar PNA -Continue supplemental oxygenation and wean as tolerates -DuoNeb 3 mL inhaled every 4 (4) Aspiration pneumonia Current Visit: Yes Status: Acute Assessment and plan: -In the ER, CT of the chest showed bibasilar consolidation consistent with PNA -Levaquin 750 mg IV daily -Flagyl 500 mg IV every 8 hours -Solu-Medrol 40 mg IV every 8 Qualifiers: Aspiration pneumonia type: unspecified Laterality: bilateral Lung location: lower lobe of lung Qualified Code(s): J69.0 - Pneumonitis due to inhalation of food and vomit (5) Acute exacerbation of chronic obstructive airways disease Current Visit: Yes Status: Acute Assessment and plan: -Secondary to above -Will continue duo nebs with oral prednisone (6) Gout Current Visit: Yes Status: Acute Assessment and plan: -Continue home dose of allopurinol - Subjective Interval history: Patient was seen and examined at bedside this morning. He reports that he is feeling well today. Denies having any respiratory distress. Denies fever, chills, nausea, vomiting, sputum production, and cough. He is resting comfortably in bed and has no complaints at this time. - Constitutional Vitals: Temp Pulse Resp BP Pulse Ox 97.7 F 93 18 162/98 97 01/10/18 07:34 01/10/18 07:34 01/10/18 07:34 01/10/18 07:34 01/10/18 07:34 General appearance: Present: no acute distress - Head Head exam: Present: atraumatic, normocephalic - Eye Eye exam: Present: PERRL, conjuntiva pink, sclera anicteric Pupils: Present: PERRL - Neck Neck exam general surgery: Present: supple, trachea midline. Absent: lymphadenopathy - Respiratory Respiratory exam: Present: CTAB. Absent: accessory muscle use, rales, rhonchi, wheezes - Cardiovascular Cardiovascular exam: Present: RRR, +S1, +S2. Absent: diastolic murmur, gallop, rubs, systolic murmur - GI/Abdominal GI/Abdominal exam: Present: normal bowel sounds, soft, no peritoneal signs. Absent: distended, tenderness - Extremities Exam Extremities exam: Present: warm, radial pulses palpable and symmetrical. Absent : calf tenderness, cyanotic, pedal edema - Neurological Exam Neurological exam: Present: CN II-XII intact, oriented X3, no focal deficits. Absent: pronater drift, facial droop, speech deficit - Skin Skin exam: Present: dry, intact Internal Medicine: Result - Labs CBC & Chem 7: 01/10/18 05:01 01/10/18 05:01 Labs: Short CBC 01/10/18 Range/Units 05:01 WBC 12.6 H (4.3-11.1) K/mcL Hgb 13.3 (12.9-16.9) g/dL Hct 40.9 (37.5-50.1) % Plt Count 253 (140-400) K/mcL Neutrophils # 11.3 H (1.6-8.9) K/mcL BMP 01/09/18 01/10/18 09:51 05:01 Sodium 141 137 Potassium 4.1 4.0 Chloride 101 97 L Carbon Dioxide 33 H 30 H BUN 32 H 26 H Creatinine 1.02 0.93 Glucose 153 H 173 H Calcium 8.4 L 8.6 - Impressions Impressions Abdomen/Pelvis CT 01/08/18 08:00 IMPRESSION: Duodenitis. Partial improvement in bibasilar lung consolidation. D/ / 01/08/2018 09:52:56 Juan Abdi MD / mary Interpreting Provider: Juan Abdi MD - VTE Documentation of Mechanical Device: Intermittent pneumatic compression device Consult Discharge Plan - Plan Referrals: All Odell DO [Primary Care Provider] - 01/15/18 9:30 am <Tito Cordon H - Last Filed: 01/10/18 12:57> Date of Encounter: 01/10/18 - Constitutional Vitals: Temp Pulse Resp BP Pulse Ox 97.8 F 97 18 117/70 97 01/10/18 12:00 01/10/18 12:00 01/10/18 12:00 01/10/18 12:00 01/10/18 12:00 Internal Medicine: Result - Labs CBC & Chem 7: 01/10/18 05:01 01/10/18 05:01 Labs: Short CBC 01/10/18 Range/Units 05:01 WBC 12.6 H (4.3-11.1) K/mcL Hgb 13.3 (12.9-16.9) g/dL Hct 40.9 (37.5-50.1) % Plt Count 253 (140-400) K/mcL Neutrophils # 11.3 H (1.6-8.9) K/mcL BMP 01/10/18 05:01 Sodium 137 Potassium 4.0 Chloride 97 L Carbon Dioxide 30 H BUN 26 H Creatinine 0.93 Glucose 173 H Calcium 8.6 - Impressions Impressions Abdomen/Pelvis CT 01/08/18 08:00 IMPRESSION: Duodenitis. Partial improvement in bibasilar lung consolidation. D/ / 01/08/2018 09:52:56 Juan Abdi MD / mary Interpreting Provider: Juan Abdi MD - Attending Attestation Acute hypoxic respiratory failure secondary to severe sepsis due to acute COPD exacerbation from possible aspiration pneumonia (during recent surgical procedure)present upon admission and new developing acute duodenitis Stopped Zosyn, stop Unasyn, continue Levaquin and Flagyl IV day #3 *Solu-Medrol IV DuoNeb nebs and oxygen therapy family requested Pulmonary consult I examined this patient and my medical decision-making was reviewed with the Resident Physician. I agree with the documented findings, disposition and treatment plan as described except to the extent set forth below.
--- NOTE | 2018-01-10 11:43 | Pulmonology Progress Note ---
Date of Encounter: 01/10/18 Time of Encounter: 10:35 Assessment and Plan (1) Acute and chronic respiratory failure Current Visit: Yes Status: Acute Secondary to pneumonia and COPD exacerbation to continue O2 supplementation Keep SPO2 around 88%-90% Qualifiers: Respiratory failure complication: hypoxia Qualified Code(s): J96.21 - Acute and chronic respiratory failure with hypoxia (2) Acute exacerbation of chronic obstructive airways disease Current Visit: Yes Status: Acute To continue bronchodilators and steroids . (3) Aspiration pneumonia Current Visit: Yes Status: Acute To continue antibiotics , incentive spirometry and flutter valve . To send sputum c/s Qualifiers: Aspiration pneumonia type: unspecified Laterality: bilateral Lung location: lower lobe of lung Qualified Code(s): J69.0 - Pneumonitis due to inhalation of food and vomit Subjective Principal diagnosis: COPD exacerbation with pneumonia Interval history: Patient is still having cough and wheezing , shortness of breadth on minimal exertion , denies any chest pain or tightness , denies any fever or chills no acute events overnight . Objective PUL Vital signs: Last Vital Signs Temp 97.7 F 01/10/18 07:34 Pulse 93 01/10/18 07:34 Resp 18 01/10/18 07:34 BP 162/98 01/10/18 07:34 Pulse Ox 97 01/10/18 07:34 Effort: mildly labored Auscultation: bilateral: wheezes Results - Laboratory Findings CBC and BMP: 01/10/18 05:01 01/10/18 05:01 Abnormal lab findings: Abnormal lab results WBC 12.6 K/mcL (4.3-11.1) H 01/10/18 05:01 Neutrophils # 11.3 K/mcL (1.6-8.9) H 01/10/18 05:01 Chloride 97 mEq/L (98-107) L 01/10/18 05:01 Carbon Dioxide 30 mEq/L (23-29) H 01/10/18 05:01 BUN 26 mg/dL (8-23) H 01/10/18 05:01 BUN/Creatinine Ratio 28 (6-26) H 01/10/18 05:01 Glucose 173 mg/dL (70-105) H 01/10/18 05:01 POC Glucose 149 mg/dL (68-89) H 01/09/18 20:39 Urine Ketones Trace mg/dL (Negative) H 01/06/18 15:49 - Clinical Findings Intake & Output: Intake & Output 01/09/18 01/10/18 01/10/18 23:59 07:59 15:59 Intake Total 966 / 966 200 / 200 970 / 970 Output Total 200 / 200 500 / 500 Balance 766 / 766 -300 / -300 970 / 970 Weight 99.7 kg - VTE Documentation of Mechanical Device: Intermittent pneumatic compression device Consult Discharge Plan - Plan Referrals: All Odell DO [Primary Care Provider] - 01/15/18 9:30 am
[2018-01-11] MEDS: MetroNIDAZOLE 500 MG/100 ML 500 MG/100 ML BAG IVPB SCH ×3 (02:46→17:04)
[2018-01-11] MEDS: MethylPREDNISolone 40 MG/ML VIAL IVP SCH ×3 (02:46→21:27)
[2018-01-11] MEDS: Ipratropium/Albuterol Neb 3 ML IH SCH ×5 (04:54→19:47)
[2018-01-11 05:46] LABS: Basophils % 0.4 %; Hematocrit 43.5 % (37.5-50.1); Hemoglobin 14.4 g/dL (12.9-16.9); Immature Granulocytes % 2.1 % (0-4); Lymphocytes # 0.5 K/mcL (0.6-4.6); Lymphocytes % 4.9 %; Mean Corpuscular HGB Conc 33.1 g/dL (31.6-35.5); Mean Corpuscular Hemoglobin 30.1 pg (28.0-33.3); Mean Corpuscular Volume 90.8 fL (83.0-100.0); Mean Platelet Volume 9.1 fL (9.4-12.4); Monocytes # 0.5 K/mcL (0.0-1.3); Monocytes % 4.7 %; Neutrophils # 9.4 K/mcL (1.6-8.9); Platelet Count 257 K/mcL (140-400); Red Blood Count 4.79 M/mcL (4.19-5.50); Red Cell Distribution Width 12.7 % (11.5-14.5); Segmented Neutrophils % 87.9 %
[2018-01-11 06:04] LABS: BUN/Creatinine Ratio 25 (6-26); Blood Urea Nitrogen 25 mg/dL (8-23); Calcium 8.6 mg/dL (8.6-10.3); Carbon Dioxide 30 mEq/L (23-29); Chloride 97 mEq/L (98-107); Glucose 183 mg/dL (70-105); Osmolality,Calculated 293 (280-300); Potassium 3.7 mEq/L (3.5-5.1); Sodium 137 mEq/L (136-145); eGFR For African Americans > 60 (> 60); eGFR For Non-African Americans > 60 (> 60)
[2018-01-11] MEDS: Pantoprazole 40 MG VIAL IVP SCH ×2 (07:01→17:04)
[2018-01-11] MEDS: hydroCHLOROthiazide 25 MG TABLET PO SCH (09:26)
[2018-01-11] MEDS: Levofloxacin 750 MG/150 ML 750 MG/150 ML BAG IVPB SCH (09:27)
[2018-01-11] MEDS: PrednisoLONE Acetate 1% Opth 5 ML BOTTLE RIGHT EYE SCH ×2 (09:27→21:27)
[2018-01-11] MEDS: Aspirin Enteric Coated 81 MG Tablet PO SCH (09:27)
[2018-01-11] MEDS: Ketorolac OPTH Soln 5 ML BOTTLE RIGHT EYE SCH ×2 (09:27→21:27)
[2018-01-11] MEDS: Gatifloxacin OPTH Drops 2.5 mL BOTTLE RIGHT EYE SCH ×2 (09:27→21:27)
[2018-01-11] MEDS: Insulin LISPRO 300 UNITS/3 ML VIAL SQ SCH ×4 (09:36→21:28)
--- NOTE | 2018-01-11 10:07 | Internal Med Progress Note ---
<Gaudencio Carlin - Last Filed: 01/11/18 10:07> Date of Encounter: 01/11/18 Time of Encounter: 10:45 - Assessment and plan (1) Sepsis Current Visit: Yes Status: Acute Assessment and plan: Patient is currently receiving IV Levaquin and Flagyl -Tylenol 650 mg by mouth when necessary -Vital signs have improved -Continue to monitor for changes in status (2) Duodenitis Current Visit: Yes Status: Acute Assessment and plan: Abdominal/pelvic CT performed on 01/08/18 demonstrated the presence of duodenitis. -Patient has gastric distention; consider NG tube -Nothing by mouth except medications -Phenergan 12.5 mg IV every 6 hours when necessary -Protonix 40 mg IV every 12 hours -Zofran 4 mg IV every 6 hours when necessary -Levaquin 750 mg IV daily; day #3 -Flagyl 500 mg IV every 8 hours; day #3 (3) Hypoxia Current Visit: Yes Status: Acute Assessment and plan: -In the ER, patient was found to be in acute hypoxic respiratory failure 2/2 bibasilar PNA -Continue supplemental oxygenation and wean as tolerates -DuoNeb 3 mL inhaled every 4 (4) Aspiration pneumonia Current Visit: Yes Status: Acute Assessment and plan: -In the ER, CT of the chest showed bibasilar consolidation consistent with PNA -Levaquin 750 mg IV daily -Flagyl 500 mg IV every 8 hours -Solu-Medrol 40 mg IV every 8 Qualifiers: Aspiration pneumonia type: unspecified Laterality: bilateral Lung location: lower lobe of lung Qualified Code(s): J69.0 - Pneumonitis due to inhalation of food and vomit (5) Acute exacerbation of chronic obstructive airways disease Current Visit: Yes Status: Acute Assessment and plan: -Secondary to above -Will continue duo nebs with oral prednisone (6) Gout Current Visit: Yes Status: Acute Assessment and plan: -Continue home dose of allopurinol - Subjective Interval history: Patient was seen and examined at bedside this morning. He reports that he is feeling well today. Denies having any respiratory distress. Denies fever, chills, nausea, vomiting, sputum production, and cough. He is resting comfortably in bed and has no complaints at this time. - Constitutional Vitals: Temp Pulse Resp BP Pulse Ox 97.7 F 99 18 118/83 97 01/11/18 07:38 01/11/18 07:38 01/11/18 07:38 01/11/18 07:38 01/11/18 07:38 General appearance: Present: no acute distress - Head Head exam: Present: atraumatic, normocephalic - Eye Eye exam: Present: PERRL, conjuntiva pink, sclera anicteric Pupils: Present: PERRL - Neck Neck exam general surgery: Present: supple, trachea midline. Absent: lymphadenopathy - Respiratory Respiratory exam: Present: CTAB. Absent: accessory muscle use, rales, rhonchi, wheezes - Cardiovascular Cardiovascular exam: Present: RRR, +S1, +S2. Absent: diastolic murmur, gallop, rubs, systolic murmur - GI/Abdominal GI/Abdominal exam: Present: normal bowel sounds, soft, no peritoneal signs. Absent: distended, tenderness - Extremities Exam Extremities exam: Present: warm, radial pulses palpable and symmetrical. Absent : calf tenderness, cyanotic, pedal edema - Neurological Exam Neurological exam: Present: CN II-XII intact, oriented X3, no focal deficits. Absent: pronater drift, facial droop, speech deficit - Skin Skin exam: Present: dry, intact Internal Medicine: Result - Labs CBC & Chem 7: 01/11/18 05:31 01/11/18 05:31 Labs: Short CBC 01/11/18 Range/Units 05:31 WBC 10.7 (4.3-11.1) K/mcL Hgb 14.4 (12.9-16.9) g/dL Hct 43.5 (37.5-50.1) % Plt Count 257 (140-400) K/mcL Neutrophils # 9.4 H (1.6-8.9) K/mcL BMP 01/11/18 05:31 Sodium 137 Potassium 3.7 Chloride 97 L Carbon Dioxide 30 H BUN 25 H Creatinine 1.00 Glucose 183 H Calcium 8.6 - VTE Documentation of Mechanical Device: Intermittent pneumatic compression device Consult Discharge Plan - Plan Referrals: All Odell DO [Primary Care Provider] - 01/15/18 9:30 am <Tito Cordon - Last Filed: 01/11/18 10:53> Date of Encounter: 04/01/18 - Constitutional Vitals: Temp Pulse Resp BP Pulse Ox 97.7 F 99 18 118/83 97 01/11/18 07:38 01/11/18 07:38 01/11/18 07:38 01/11/18 07:38 01/11/18 07:38 Internal Medicine: Result - Labs CBC & Chem 7: 01/11/18 05:31 01/11/18 05:31 Labs: Short CBC 01/11/18 Range/Units 05:31 WBC 10.7 (4.3-11.1) K/mcL Hgb 14.4 (12.9-16.9) g/dL Hct 43.5 (37.5-50.1) % Plt Count 257 (140-400) K/mcL Neutrophils # 9.4 H (1.6-8.9) K/mcL BMP 01/11/18 05:31 Sodium 137 Potassium 3.7 Chloride 97 L Carbon Dioxide 30 H BUN 25 H Creatinine 1.00 Glucose 183 H Calcium 8.6 - Attending Attestation Acute hypoxic respiratory failure secondary to severe sepsis due to acute COPD exacerbation from possible aspiration pneumonia (during recent surgical procedure)present upon admission and new developing acute duodenitis Still wheezing, tachycardic Stopped Zosyn, stopped Unasyn, continue Levaquin and Flagyl IV day #4 Continue Solu-Medrol IV May switch to oral prednisone in the morning if feeling better, consider discharge in the morning DuoNeb nebs and oxygen therapy family requested Pulmonary consult I examined this patient and my medical decision-making was reviewed with the Resident Physician. I agree with the documented findings, disposition and treatment plan as described except to the extent set forth below.
--- NOTE | 2018-01-11 22:40 | Pulmonology Progress Note ---
Date of Encounter: 01/11/18 Time of Encounter: 10:15 Assessment and Plan (1) Acute and chronic respiratory failure Current Visit: Yes Status: Acute Secondary to pneumonia and COPD exacerbation to continue O2 supplementation Keep SPO2 around 88%-90% Qualifiers: Respiratory failure complication: hypoxia Qualified Code(s): J96.21 - Acute and chronic respiratory failure with hypoxia (2) Acute exacerbation of chronic obstructive airways disease Current Visit: Yes Status: Acute To continue bronchodilators and steroids . On discharge send on duoneb nebulizer , Symbicort BID , Prolonged steroid taper over 21 days (3) Aspiration pneumonia Current Visit: Yes Status: Acute To continue antibiotics , incentive spirometry and flutter valve . To send sputum c/s Patient denies any choking . Suggested Swallow evaluation . Qualifiers: Aspiration pneumonia type: unspecified Laterality: bilateral Lung location: lower lobe of lung Qualified Code(s): J69.0 - Pneumonitis due to inhalation of food and vomit Subjective Principal diagnosis: COPD exacerbation with pneumonia Interval history: Patient is still having cough and wheezing , shortness of breadth on minimal exertion , denies any chest pain or tightness , denies any fever or chills no acute events overnight . 01/11 Patient says he is slowly getting better was able to go to bathroom , tolerated the diet no other active complaints Objective PUL Vital signs: Last Vital Signs Temp 98.6 F 01/11/18 20:00 Pulse 103 01/11/18 20:00 Resp 20 01/11/18 20:00 BP 107/73 01/11/18 20:00 Pulse Ox 95 01/11/18 21:46 Effort: mildly labored Auscultation: bilateral: wheezes Cardiovascular: regular rate and rhythm Gastrointestinal: normoactive bowel sounds Results - Laboratory Findings CBC and BMP: 01/11/18 05:31 01/11/18 05:31 Abnormal lab findings: Abnormal lab results MPV 9.1 fL (9.4-12.4) L 01/11/18 05:31 Neutrophils # 9.4 K/mcL (1.6-8.9) H 01/11/18 05:31 Lymphocytes # 0.5 K/mcL (0.6-4.6) L 01/11/18 05:31 Chloride 97 mEq/L (98-107) L 01/11/18 05:31 Carbon Dioxide 30 mEq/L (23-29) H 01/11/18 05:31 BUN 25 mg/dL (8-23) H 01/11/18 05:31 Glucose 183 mg/dL (70-105) H 01/11/18 05:31 POC Glucose 174 mg/dL (68-89) H 01/11/18 07:39 Urine Ketones Trace mg/dL (Negative) H 01/06/18 15:49 - Clinical Findings Intake & Output: Intake & Output 01/11/18 01/11/18 01/11/18 07:59 15:59 23:59 Intake Total 500 / 500 700 / 700 240 / 240 Output Total 350 / 350 0 / 0 Balance 150 / 150 700 / 700 240 / 240 Weight 99 kg - VTE Documentation of Mechanical Device: Intermittent pneumatic compression device Consult Discharge Plan - Plan Referrals: All Odell DO [Primary Care Provider] - 01/15/18 9:30 am
[2018-01-12] MEDS: Ipratropium/Albuterol Neb 3 ML IH SCH ×6 (00:38→20:57)
[2018-01-12] MEDS: MetroNIDAZOLE 500 MG/100 ML 500 MG/100 ML BAG IVPB SCH ×3 (02:03→17:32)
[2018-01-12] MEDS: MethylPREDNISolone 40 MG/ML VIAL IVP SCH ×3 (03:12→20:26)
[2018-01-12 04:42] LABS: Basophils # 0.1 K/mcL (0.0-0.2); Basophils % 0.5 %; Hematocrit 44.6 % (37.5-50.1); Hemoglobin 14.3 g/dL (12.9-16.9); Immature Granulocytes % 1.9 % (0-4); Lymphocytes # 0.7 K/mcL (0.6-4.6); Lymphocytes % 4.8 %; Mean Corpuscular HGB Conc 32.1 g/dL (31.6-35.5); Mean Corpuscular Hemoglobin 29.8 pg (28.0-33.3); Mean Corpuscular Volume 92.9 fL (83.0-100.0); Mean Platelet Volume 9.5 fL (9.4-12.4); Monocytes # 0.7 K/mcL (0.0-1.3); Monocytes % 4.5 %; Neutrophils # 13.7 K/mcL (1.6-8.9); Platelet Count 307 K/mcL (140-400); Red Cell Distribution Width 12.9 % (11.5-14.5); Segmented Neutrophils % 88.3 %
[2018-01-12 05:00] LABS: BUN/Creatinine Ratio 26 (6-26); Blood Urea Nitrogen 28 mg/dL (8-23); Calcium 8.6 mg/dL (8.6-10.3); Carbon Dioxide 29 mEq/L (23-29); Chloride 96 mEq/L (98-107); Glucose 188 mg/dL (70-105); Osmolality,Calculated 292 (280-300); Potassium 3.7 mEq/L (3.5-5.1); Sodium 136 mEq/L (136-145); eGFR For African Americans > 60 (> 60); eGFR For Non-African Americans > 60 (> 60)
[2018-01-12] MEDS: Pantoprazole 40 MG VIAL IVP SCH (05:59)
--- NOTE | 2018-01-12 08:25 | Internal Med Progress Note ---
Date of Encounter: 01/12/18 Time of Encounter: 08:23 - Assessment and plan (1) Acute respiratory failure with hypoxia Current Visit: Yes Status: Acute Assessment and plan: Acute hypoxic respiratory failure secondary to severe sepsis due to acute COPD exacerbation from possible aspiration pneumonia (during recent surgical procedure)present upon admission and new developing acute duodenitis Still wheezing, tachycardic Stopped Zosyn, stopped Unasyn, oxygen therapy continue Levaquin and Flagyl IV day #5 Continue Solu-Medrol IV May switch to oral prednisone in the morning if feeling better, consider discharge in the morning DuoNeb nebs and oxygen therapy Start metoprolol due to tachycardia family requested Pulmonary consult (2) Constipation Current Visit: Yes Status: Acute Assessment and plan: Start lactulose Qualifiers: Constipation type: other constipation type Qualified Code(s): K59.09 - Other constipation (3) Acute exacerbation of chronic obstructive airways disease Current Visit: Yes Status: Acute (4) Aspiration pneumonia Current Visit: Yes Status: Acute Assessment and plan: Occurred during ophthalmic surgical procedure Qualifiers: Aspiration pneumonia type: unspecified Laterality: bilateral Lung location: lower lobe of lung Qualified Code(s): J69.0 - Pneumonitis due to inhalation of food and vomit (5) Duodenitis Current Visit: Yes Status: Acute Assessment and plan: Continue Flagyl and Levaquin (6) Sepsis Current Visit: Yes Status: Acute Assessment and plan: Resolving Qualifiers: Sepsis type: sepsis due to unspecified organism Qualified Code(s): A41.9 - Sepsis, unspecified organism - Subjective Interval history: Very tachycardic, short of breath, gets winded by walking, denies any abdominal pain, is constipated, no fevers, no dysuria, feels less weak - Constitutional Vitals: Temp Pulse Resp BP Pulse Ox 98.1 F 108 18 118/77 95 01/12/18 07:04 01/12/18 07:04 01/12/18 07:56 01/12/18 07:04 01/12/18 07:56 General appearance: Present: A&O X 3, no acute distress - Head Head exam: Present: atraumatic, normocephalic - Eye Eye exam: Present: PERRL, conjuntiva pink, sclera anicteric Pupils: Present: PERRL - Neck Neck exam general surgery: Present: supple, trachea midline. Absent: lymphadenopathy - Respiratory Respiratory exam: Present: CTAB, wheezes (Diffuse wheezing). Absent: accessory muscle use, rales, rhonchi - Cardiovascular Cardiovascular exam: Present: RRR, +S1, +S2, tachycardia. Absent: diastolic murmur, gallop, rubs, systolic murmur - GI/Abdominal GI/Abdominal exam: Present: distended, normal bowel sounds, soft, no peritoneal signs. Absent: tenderness - Extremities Exam Extremities exam: Present: warm, radial pulses palpable and symmetrical. Absent : calf tenderness, cyanotic, pedal edema - Neurological Exam Neurological exam: Present: CN II-XII intact, oriented X3, no focal deficits. Absent: pronater drift, facial droop, speech deficit - Skin Skin exam: Present: dry, intact Internal Medicine: Result - Labs CBC & Chem 7: 01/12/18 03:48 01/12/18 03:48 Labs: Short CBC 01/12/18 Range/Units 03:48 WBC 15.5 H (4.3-11.1) K/mcL Hgb 14.3 (12.9-16.9) g/dL Hct 44.6 (37.5-50.1) % Plt Count 307 (140-400) K/mcL Neutrophils # 13.7 H (1.6-8.9) K/mcL BMP 01/12/18 03:48 Sodium 136 Potassium 3.7 Chloride 96 L Carbon Dioxide 29 BUN 28 H Creatinine 1.06 Glucose 188 H Calcium 8.6 - VTE Documentation of Mechanical Device: Intermittent pneumatic compression device Consult Discharge Plan - Plan Referrals: All Odell DO [Primary Care Provider] - 01/15/18 9:30 am
[2018-01-12] MEDS: hydroCHLOROthiazide 25 MG TABLET PO SCH (09:04)
[2018-01-12] MEDS: Ketorolac OPTH Soln 5 ML BOTTLE RIGHT EYE SCH ×2 (09:06→20:25)
[2018-01-12] MEDS: Aspirin Enteric Coated 81 MG Tablet PO SCH (09:06)
[2018-01-12] MEDS: Lactulose Oral Soln 20 GM/30 ML UDC PO SCH ×2 (09:06→20:26)
[2018-01-12] MEDS: Gatifloxacin OPTH Drops 2.5 mL BOTTLE RIGHT EYE SCH ×2 (09:08→20:26)
[2018-01-12] MEDS: PrednisoLONE Acetate 1% Opth 5 ML BOTTLE RIGHT EYE SCH ×2 (09:08→20:25)
[2018-01-12] MEDS: Insulin LISPRO 300 UNITS/3 ML VIAL SQ SCH ×4 (09:19→20:30)
[2018-01-12] MEDS: Levofloxacin 750 MG/150 ML 750 MG/150 ML BAG IVPB SCH (09:20)
[2018-01-13] MEDS: 0.9 % Sodium Chloride 1,000 ML IVC SCH ×3 (00:08→22:09)
[2018-01-13] MEDS: Ipratropium/Albuterol Neb 3 ML IH SCH ×6 (00:17→20:45)
[2018-01-13 00:55] LABS: Hematocrit 43.4 % (37.5-50.1); Hemoglobin 14.3 g/dL (12.9-16.9); Mean Corpuscular HGB Conc 32.9 g/dL (31.6-35.5); Mean Corpuscular Hemoglobin 29.7 pg (28.0-33.3); Mean Corpuscular Volume 90.2 fL (83.0-100.0); Mean Platelet Volume 9.3 fL (9.4-12.4); Platelet Count 282 K/mcL (140-400); Red Blood Count 4.81 M/mcL (4.19-5.50)
[2018-01-13 01:10] LABS: BUN/Creatinine Ratio 29 (6-26); Blood Urea Nitrogen 30 mg/dL (8-23); Calcium 8.9 mg/dL (8.6-10.3); Carbon Dioxide 30 mEq/L (23-29); Chloride 98 mEq/L (98-107); Glucose 154 mg/dL (70-105); Osmolality,Calculated 293 (280-300); Potassium 3.8 mEq/L (3.5-5.1); Sodium 137 mEq/L (136-145); eGFR For African Americans > 60 (> 60); eGFR For Non-African Americans > 60 (> 60)
[2018-01-13 01:31] LABS: Adenovirus Not Detected (Not Detect); Bordetella Pertussis Not Detected (Not Detect); Chlamydophila pneumoniae Not Detected (Not Detect); Coronavirus 229E Not Detected (Not Detect); Coronavirus HKU1 Not Detected (Not Detect); Coronavirus NL63 Not Detected (Not Detect); Coronavirus OC43 Not Detected (Not Detect); Human Metapneumovirus Not Detected (Not Detect); Human Rhinovirus/Enterovirus Not Detected (Not Detect); Influenza A Subtype 2009 H1 Not Detected (Not Detect); Influenza A Untypeable Not Detected (Not Detect); Influenza B Not Detected (Not Detect); Mycoplasma pneumoniae Not Detected (Not Detect); Parainfluenza Virus 1 Not Detected (Not Detect); Parainfluenza Virus 2 Not Detected (Not Detect); Parainfluenza Virus 3 Not Detected (Not Detect); Parainfluenza Virus 4 Not Detected (Not Detect); Respiratory Syncytial Virus Not Detected (Not Detect)
[2018-01-13 04:49] LABS: Basophils # 0.1 K/mcL (0.0-0.2); Basophils % 0.7 %; Hematocrit 42.1 % (37.5-50.1); Hemoglobin 13.6 g/dL (12.9-16.9); Lymphocytes # 0.6 K/mcL (0.6-4.6); Lymphocytes % 3.7 %; Mean Corpuscular HGB Conc 32.3 g/dL (31.6-35.5); Mean Corpuscular Hemoglobin 29.6 pg (28.0-33.3); Mean Corpuscular Volume 91.7 fL (83.0-100.0); Mean Platelet Volume 9.5 fL (9.4-12.4); Monocytes # 0.8 K/mcL (0.0-1.3); Monocytes % 4.8 %; Neutrophils # 14.2 K/mcL (1.6-8.9); Platelet Count 280 K/mcL (140-400); Red Blood Count 4.59 M/mcL (4.19-5.50); Segmented Neutrophils % 87.8 %
[2018-01-13] MEDS: MethylPREDNISolone 40 MG/ML VIAL IVP SCH ×3 (05:52→22:08)
[2018-01-13] MEDS: Insulin LISPRO 300 UNITS/3 ML VIAL SQ SCH ×4 (08:29→22:11)
[2018-01-13] MEDS: levoFLOXacin 750 MG TABLET PO SCH (08:29)
[2018-01-13] MEDS: hydroCHLOROthiazide 25 MG TABLET PO SCH (08:29)
[2018-01-13] MEDS: Aspirin Enteric Coated 81 MG Tablet PO SCH (08:30)
[2018-01-13] MEDS: metroNIDAZOLE 500 MG TABLET PO SCH ×3 (08:30→22:08)
[2018-01-13] MEDS: Gatifloxacin OPTH Drops 2.5 mL BOTTLE RIGHT EYE SCH (08:31)
[2018-01-13] MEDS: PrednisoLONE Acetate 1% Opth 5 ML BOTTLE RIGHT EYE SCH ×2 (08:31→22:09)
[2018-01-13] MEDS: Ketorolac OPTH Soln 5 ML BOTTLE RIGHT EYE SCH ×2 (08:31→22:09)
[2018-01-13] MEDS: Lactulose Oral Soln 20 GM/30 ML UDC PO SCH (08:32)
--- NOTE | 2018-01-13 10:29 | Internal Med Progress Note ---
<Delroy Hurst - Last Filed: 01/13/18 16:23> Date of Encounter: 01/13/18 Time of Encounter: 08:30 - Assessment and plan (1) Sepsis Current Visit: Yes Status: Suspected Assessment and plan: - Noted to have significant tachycardia with lactic acid 3.3 overnight. Repeat lactic acid is 3.8. - Doubt sepsis given patient has been on appropriate antibiotics and is improving clinically. - Patient's tachycardia is likely secondary to dehydration as patient's tachycardia resolved after receiving 1L of IV NS bolus. - Continue hydration with IV NS and current antibiotics regimen for now. - Check lactic acid again this afternoon. - Continue to monitor closely. Qualifiers: Sepsis type: sepsis due to unspecified organism Qualified Code(s): A41.9 - Sepsis, unspecified organism (2) Acute and chronic respiratory failure Current Visit: Yes Status: Acute Assessment and plan: - Secondary to pneumonia and AE COPD. - Improves as patient reports breathing better and can maintain O2 sat above 94 % on 2L NC. - Continue Levaquin & Flagyl for aspiration pneumonia. - Continue IV Solu-Medrol, bronchodilators and supplemental oxygen. Qualifiers: Respiratory failure complication: hypoxia Qualified Code(s): J96.21 - Acute and chronic respiratory failure with hypoxia (3) Aspiration pneumonia Current Visit: Yes Status: Acute Assessment and plan: - Chest CTA on 01/06/18 found bibasilar consolidation concerning of aspiration pneumonia. - Continue Levaquin (Day 6) and Flagyl (Day 6). Plan to treat for total of 7-10 days. Qualifiers: Aspiration pneumonia type: unspecified Laterality: bilateral Lung location: lower lobe of lung Qualified Code(s): J69.0 - Pneumonitis due to inhalation of food and vomit (4) Duodenitis Current Visit: Yes Status: Resolved Assessment and plan: - CT A/P on 01/08/18 indicated duodenitis. - Improves as patient's abdominal pain & nausea/vomiting resolved and patient is able to tolerate oral intake well. - Continue omeprazole and Levaquin & Flagyl. (5) Acute exacerbation of chronic obstructive airways disease Current Visit: Yes Status: Acute Assessment and plan: - Continue IV Solu-Medrol, bronchodilators and supplemental oxygen. (6) DVT prophylaxis Current Visit: Yes Status: Acute Assessment and plan: - Continue EPCD as mechanical DVT prophylaxis. - Subjective Interval history: Patient was noted to have tachycardia in 130s overnight with lactic acid 3.3. Patient was started on IV NS. Patient was seen and examined this morning. Patient reports feels well and is able to tolerate oral intake. Patient denies fever, chills, shortness of breath, chest pain, abdominal pain, nausea, vomiting , diarrhea. - Constitutional Vitals: Temp Pulse Resp BP Pulse Ox 98.1 F 98 17 171/87 92 01/13/18 07:22 01/13/18 07:22 01/13/18 07:42 01/13/18 07:22 01/13/18 07:42 General appearance: Present: A&O X 3, no acute distress - Head Head exam: Present: normal inspection - Eye Eye exam: Present: EOMI - Neck Neck exam general surgery: Present: normal inspection, trachea midline - Respiratory Respiratory exam: Present: CTAB - Cardiovascular Cardiovascular exam: Present: tachycardia - GI/Abdominal GI/Abdominal exam: Present: normal bowel sounds, soft. Absent: tenderness - Extremities Exam Extremities exam: Present: normal inspection. Absent: cyanotic - Neurological Exam Neurological exam: Present: alert, no focal deficits. Absent: facial droop, speech deficit - Skin Skin exam: Present: dry, warm Internal Medicine: Result - Labs CBC & Chem 7: 01/13/18 04:26 01/13/18 00:32 Labs: Short CBC 01/13/18 01/13/18 Range/Units 00:32 04:26 WBC 18.4 H 16.2 H (4.3-11.1) K/mcL Hgb 14.3 13.6 (12.9-16.9) g/dL Hct 43.4 42.1 (37.5-50.1) % Plt Count 282 280 (140-400) K/mcL Neutrophils # 14.2 H (1.6-8.9) K/mcL BMP 01/13/18 00:32 Sodium 137 Potassium 3.8 Chloride 98 Carbon Dioxide 30 H BUN 30 H Creatinine 1.05 Glucose 154 H Calcium 8.9 - Impressions Impressions Chest X-Ray 01/13/18 08:41 IMPRESSION: No new airspace opacities. D/ / Janusz Valles MD / Janusz Valles MD Interpreting Provider: Janusz Valles MD - VTE Documentation of Mechanical Device: Intermittent pneumatic compression device Consult Discharge Plan - Plan Instructions: Chest Pain (DC), Acute Respiratory Distress Syndrome (DC), Chronic Obstructive Pulmonary Disease (DC), Sepsis (DC), Pneumonia (DC) Referrals: All Odell DO [Primary Care Provider] - 01/15/18 9:30 am <Maurizio Hyde - Last Filed: 01/13/18 18:16> Date of Encounter: 01/13/18 - Assessment and plan (1) Acute and chronic respiratory failure Current Visit: Yes Status: Acute Qualifiers: Respiratory failure complication: hypoxia Qualified Code(s): J96.21 - Acute and chronic respiratory failure with hypoxia (2) Sepsis Current Visit: Yes Status: Suspected Qualifiers: Sepsis type: sepsis due to unspecified organism Qualified Code(s): A41.9 - Sepsis, unspecified organism (3) Aspiration pneumonia Current Visit: Yes Status: Acute Qualifiers: Aspiration pneumonia type: unspecified Laterality: bilateral Lung location: lower lobe of lung Qualified Code(s): J69.0 - Pneumonitis due to inhalation of food and vomit (4) Duodenitis Current Visit: Yes Status: Resolved (5) Acute exacerbation of chronic obstructive airways disease Current Visit: Yes Status: Acute - Constitutional Vitals: Temp Pulse Resp BP Pulse Ox 98.1 F 89 18 114/72 94 01/13/18 15:11 01/13/18 15:11 01/13/18 15:48 01/13/18 15:11 01/13/18 15:48 Internal Medicine: Result - Labs CBC & Chem 7: 01/13/18 04:26 01/13/18 00:32 Labs: Short CBC 01/13/18 01/13/18 Range/Units 00:32 04:26 WBC 18.4 H 16.2 H (4.3-11.1) K/mcL Hgb 14.3 13.6 (12.9-16.9) g/dL Hct 43.4 42.1 (37.5-50.1) % Plt Count 282 280 (140-400) K/mcL Neutrophils # 14.2 H (1.6-8.9) K/mcL BMP 01/13/18 00:32 Sodium 137 Potassium 3.8 Chloride 98 Carbon Dioxide 30 H BUN 30 H Creatinine 1.05 Glucose 154 H Calcium 8.9 - Impressions Impressions Chest X-Ray 01/13/18 08:41 IMPRESSION: No new airspace opacities. D/ / Janusz Valles MD / Janusz Valles MD Interpreting Provider: Janusz Valles MD - Attending Attestation I examined this patient and my medical decision-making was reviewed with the Resident Physician on 01/13/18. I agree with the documented findings, disposition and treatment plan as described except to the extent set forth below. Mr Pacheco is currently admitted for sepsis related to aspiration pneumonia. He became tachycardic again last night. He remains moderate to high risk due to potential for worsening clinical and respiratory status. Mr Pacheco is starting to feel a little better. No fever or chills. No CP or worsening clinical status. Had some tachycardia last night and lactate elevated. Has responded to fluids - most likely dehydrated. Exam Alert Comfortable at this time Mucus membranes dry Heart reg - not tachy now Lungs with scattered rhonchi Abd soft No edema I/P 1. Sepsis resolved - present on admission. Do not feel this is now the issue. 2. Asp pneumonia 3. Tachycardia due to dehydration Further diagnoses and plan as above.
[2018-01-13] MEDS ORDERED: 0.9 % Sodium Chloride 1,000 ML IVC ONE (10:35)
[2018-01-14] MEDS: Ipratropium/Albuterol Neb 3 ML IH SCH ×4 (00:34→11:20)
[2018-01-14] MEDS: MethylPREDNISolone 40 MG/ML VIAL IVP SCH ×2 (05:43→16:55)
[2018-01-14 06:43] LABS: Basophils # 0.1 K/mcL (0.0-0.2); Basophils % 0.5 %; Hematocrit 40.3 % (37.5-50.1); Hemoglobin 13.3 g/dL (12.9-16.9); Immature Granulocytes % 2.9 % (0-4); Immature Platelets 1.6 % (1.1-6.1); Lymphocytes # 0.7 K/mcL (0.6-4.6); Lymphocytes % 4.5 %; Mean Corpuscular Hemoglobin 30.4 pg (28.0-33.3); Mean Corpuscular Volume 92.2 fL (83.0-100.0); Mean Platelet Volume 9.2 fL (9.4-12.4); Monocytes # 0.7 K/mcL (0.0-1.3); Monocytes % 4.7 %; Neutrophils # 13.2 K/mcL (1.6-8.9); Platelet Count 245 K/mcL (140-400); Red Blood Count 4.37 M/mcL (4.19-5.50); Red Cell Distribution Width 12.9 % (11.5-14.5); Segmented Neutrophils % 87.4 %
[2018-01-14 07:02] LABS: BUN/Creatinine Ratio 28 (6-26); Blood Urea Nitrogen 25 mg/dL (8-23); Calcium 8.4 mg/dL (8.6-10.3); Carbon Dioxide 33 mEq/L (23-29); Chloride 100 mEq/L (98-107); Glucose 155 mg/dL (70-105); Osmolality,Calculated 294 (280-300); Potassium 4.1 mEq/L (3.5-5.1); Sodium 138 mEq/L (136-145); eGFR For African Americans > 60 (> 60); eGFR For Non-African Americans > 60 (> 60)
[2018-01-14] MEDS: metroNIDAZOLE 500 MG TABLET PO SCH ×3 (08:40→20:47)
[2018-01-14] MEDS: Aspirin Enteric Coated 81 MG Tablet PO SCH (08:40)
[2018-01-14] MEDS: levoFLOXacin 750 MG TABLET PO SCH (08:41)
[2018-01-14] MEDS: Ketorolac OPTH Soln 5 ML BOTTLE RIGHT EYE SCH ×2 (08:41→20:46)
[2018-01-14] MEDS: hydroCHLOROthiazide 25 MG TABLET PO SCH (08:41)
[2018-01-14] MEDS: PrednisoLONE Acetate 1% Opth 5 ML BOTTLE RIGHT EYE SCH ×2 (08:42→20:48)
[2018-01-14] MEDS: Insulin LISPRO 300 UNITS/3 ML VIAL SQ SCH ×4 (08:45→20:48)
[2018-01-14] MEDS: 0.9 % Sodium Chloride 1,000 ML IVC SCH ×2 (08:46→16:54)
--- NOTE | 2018-01-14 10:27 | Discharge Summary ---
<Delroy Hurst - Last Filed: 01/16/18 14:48> Date of Encounter: 01/16/18 Time of Encounter: 08:45 - Discharge Diagnosis (1) Sepsis Priority: Primary Status: Ruled-out Qualifiers: Sepsis type: sepsis due to unspecified organism Qualified Code(s): A41.9 - Sepsis, unspecified organism (2) Acute and chronic respiratory failure Priority: Primary Status: Resolved Qualifiers: Respiratory failure complication: hypoxia Qualified Code(s): J96.21 - Acute and chronic respiratory failure with hypoxia (3) Aspiration pneumonia Priority: Primary Status: Resolved Qualifiers: Aspiration pneumonia type: unspecified Laterality: bilateral Lung location: lower lobe of lung Qualified Code(s): J69.0 - Pneumonitis due to inhalation of food and vomit (4) Duodenitis Priority: Primary Status: Resolved (5) Acute exacerbation of chronic obstructive airways disease Priority: Secondary Status: Acute Hospital course: Mr. Pacheco is a 77 year old male with PMH of COPD, HTN, gout and recent right eye cataract surgery who presented to [facility] ED for shortness of breath. CTA chest found no evidence of pulmonary embolism but bibasilar consolidation consistent with pneumonia. 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 Patient was admitted on 01/06/18 for aspiration pneumonia and started on IV Zosyn. CT A/P was obtained on 01/08/18 for intractable vomiting and showed duodenitis. Antibiotic was switched to IV levofloxacin and metronidazole on 01/08. Patient's shortness of breath, cough, abdominal pain and nausea/vomiting improve significantly since. Patient was noted to have lactic acid as high as 4.4 on 01/14/18 and WBC 22.8 on 01/15/18. CT chest/abdomen/pelvis with contrast showed improvement of pneumonia and duodenitis without significant evidence of other infection source. Respiratory infection panel is negative. Infectious disease was consulted. Since patient is doing very well clinically, non- infectious etiology may contribute to his tachycardia and lactic acidosis but prolonged course of levofloxacin was recommended. Given patient has been doing well clinically and remains hemodynamically stable, patient can be discharged home with 7 more days of levofloxacin 750 mg PO daily and prednisone taper (40 mg x 3 days, then 30 mg x 3 days, followed by 20 mg x 3 days and finally 10 mg x 3 days.). Patient was instructed to follow up with his primary care physician within a week regarding his hospitalization and finding of ascending aorta aneurysm. Patient and his expressed their understanding and agreement with discharge plan. All questions were answered. Discharge discussed with: patient, family - Time Spent with Patient Total time spent providing and/or coordinating discharge services: Greater than 30 minutes (40 minutes) - Discharge Medications Prescriptions: levoFLOXacin [Levaquin] 750 mg PO DAILY #7 tablet Metoprolol [Lopressor] 12.5 mg PO BID #30 tablet Omeprazole [PriLOSEC] 40 mg PO DAILY@0630 #30 capsule. predniSONE [PredniSONE] See Taper PO DAILY #30 tablet Home Medications: Allopurinol [Zyloprim 100 MG] 100 mg PO DAILY 01/06/18 [History] Aspirin Enteric Coated [Aspirin EC] 81 mg PO DAILY 01/06/18 [History] Budesonide/Formoterol 80/4.5 [Symbicort 80/4.5] 2 puff IH BID 01/06/18 [History ] Gatifloxacin [Zymaxid] 1 drop RIGHT EYE BID 01/06/18 [History] Ipratropium Neb [Atrovent Neb] 0.5 mg IH Q6H 01/06/18 [History] Ketorolac OPTH Soln [Acular] 1 drop RIGHT EYE BID 01/06/18 [History] Levalbuterol Neb [Xopenex Neb] 0.63 mg IH Q6H 01/06/18 [History] Olmesartan Medoxomil 40 mg PO DAILY 01/06/18 [History] PrednisoLONE Acetate 1% Opth [PredFORTE 1%] 1 drop RIGHT EYE BID 01/06/18 [ History] Vit C/E/Zn/Coppr/Lutein/Zeaxan [Preservision Areds 2 Softgel] 1 each PO BID [History] hydroCHLOROthiazide [Hydrochlorothiazide] 25 mg PO DAILY 01/06/18 [History] Metoprolol [Lopressor] 12.5 mg PO BID #30 tablet 01/14/18 [Rx] Omeprazole [PriLOSEC] 40 mg PO DAILY@0630 #30 capsule. 01/14/18 [Rx] predniSONE [PredniSONE] See Taper PO DAILY #30 tablet 01/14/18 [Rx] levoFLOXacin [Levaquin] 750 mg PO DAILY #7 tablet 01/16/18 [Rx] Allergies/Adverse Reactions: 3 Allergy/AdvReac Type Severity Reaction Status Date / Time Powdered Inhalers Allergy Difficulty Uncoded 01/06/18 18:27 Breathing Date of admission: 01/06/18 20:56 Primary care physician: All Odell, Consults: 01/09/18 14:06 Consult to Pulmonology [CONS] Routine Consulting Provider: [facility] Reason for Consult: Family request Call Completed: Yes 01/12/18 23:29 Consult to Respiratory Therapy [CONS] Routine Reason for Consult: Flutter valve with each duoneb Call Completed: Yes Discharging clinician: Delroy Hurst Anticipated date of discharge: 01/16/18 - Constitutional Vitals: Temp Pulse Resp BP Pulse Ox 98.1 F 93 15 152/87 96 01/14/18 07:00 01/14/18 07:00 01/14/18 07:00 01/14/18 07:00 01/14/18 07:00 General appearance: Present: A&O X 3, no acute distress - Head Head exam: Present: normal inspection - Eye Eye exam: Present: EOMI - Neck Neck exam general surgery: Present: normal inspection, trachea midline - Respiratory Respiratory exam: Present: CTAB - Cardiovascular Cardiovascular exam: Present: tachycardia (110s, improves compared to yesterday which was 130s) - GI/Abdominal GI/Abdominal exam: Present: normal bowel sounds, soft. Absent: tenderness - Extremities Exam Extremities exam: Absent: cyanotic, pedal edema - Neurological Exam Neurological exam: Present: alert, no focal deficits. Absent: facial droop, speech deficit - Skin Skin exam: Present: dry, warm - Patient Status Disposition: Home, Self-Care Condition: Fair Functional capacity at discharge: independent ambulation Overall status at discharge: patient is progressing back to baseline - Discharge Instructions Instructions: Metoprolol (By mouth), Prednisone (By mouth), Omeprazole (By mouth), Levofloxacin (By mouth), Chest Pain (DC), Acute Respiratory Distress Syndrome (DC), Chronic Obstructive Pulmonary Disease (DC), Sepsis (DC), Pneumonia (DC) Follow Up With: All Odell DO [Primary Care Provider] - (Within a week, PLEASE CALL OFFICE ON FRIDAY FOR APOINTMENT DATE AND TIME) Nile Templeton MD [Partnered Physician] - (OFFICE WILL CALL YOU WITH APPOINTMENT DATE AND TIME, IF NO RETURN CALL BY 01/20 PLEASE CALL OFFICE TO OBTAIN APPOINTMENT DATE AND TIME) Danae Hare MD [Partnered Physician] - (OFFICE WILL CALL YOU WITH APPOINTMENT DATE AND TIME, IF HAVE NOT RECEIVED RETURN CALL BY 01/20 PLEASE CALL OFFICE FOR THIS INFO) Additional Instructions: Please take prescribed levofloxacin 750 mg oral daily for 7 more days as recommended by infectious disease specialist. Please take prescribed prednisone taper (40 mg x 3 days, then 30 mg x 3 days, followed by 20 mg x 3 days and finally 10 mg x 3 days. Please follow up with your primary care physician within a week regarding your hospitalization and finding of dilated ascending aorta (4.6 cm). - Diet and Activity Activity: increase activity as tolerated Diet: regular diet - VTE Documentation of Mechanical Device: Intermittent pneumatic compression device <Maurizio Hyde - Last Filed: 01/16/18 19:38> Orders not resulted at time of discharge: Pending orders 01/15/18 08:18 Culture,Blood,Additional [BC] Stat Date of Encounter: 01/16/18 - Discharge Diagnosis (1) Acute and chronic respiratory failure Status: Resolved Qualifiers: Respiratory failure complication: hypoxia Qualified Code(s): J96.21 - Acute and chronic respiratory failure with hypoxia (2) Aspiration pneumonia Status: Resolved Qualifiers: Aspiration pneumonia type: unspecified Laterality: bilateral Lung location: lower lobe of lung Qualified Code(s): J69.0 - Pneumonitis due to inhalation of food and vomit (3) Sepsis Status: Ruled-out Qualifiers: Sepsis type: sepsis due to unspecified organism Qualified Code(s): A41.9 - Sepsis, unspecified organism (4) Lactic acidosis Priority: Secondary Status: Resolved (5) Duodenitis Status: Resolved (6) Acute exacerbation of chronic obstructive airways disease Status: Acute Hospital course: Mr. Pacheco is a 77 year old male - Time Spent with Patient Total time spent providing and/or coordinating discharge services: 39min Date of admission: 01/06/18 20:56 Primary care physician: All Odell, Consults: 01/09/18 14:06 Consult to Pulmonology [CONS] Routine Consulting Provider: [facility] Reason for Consult: Family request Call Completed: Yes 01/12/18 23:29 Consult to Respiratory Therapy [CONS] Routine Reason for Consult: Flutter valve with each duoneb Call Completed: Yes 01/15/18 10:52 Consult to Infectious Diseases [CONS] Routine Consulting Provider: [facility] Reason for Consult: Worsening leukocytosis and persistent lactic acidosis despite of being on IV fluid and antibitoics for aspiration pneumonia & doudenitis. Blood culture, urine culture, CT C/A/P with contrast ordered. Call Completed: Yes - Constitutional Vitals: Temp Pulse Resp BP Pulse Ox 98.2 F 101 16 159/95 98 01/16/18 11:35 01/16/18 11:35 01/16/18 11:35 01/16/18 11:35 01/16/18 11:35 - Attending Attestation I examined this patient and my medical decision-making was reviewed with the Resident Physician on 01/16/18. I agree with the documented findings, disposition and treatment plan as described except to the extent set forth below. Mr Pacheco has been admitted for resp failure, sepsis and PNA. He is now afebrile. His lactate has improved. His WBC is slightly better. He is ready for discharge home on PO abx. Exam alert Comfortable Mucus membranes dry Heart reg No wheeze now Plan D/C home today.
[2018-01-14] MEDS ORDERED: Saliva Stimulant 100ml BOTTLE PO PRN (18:37)
--- NOTE | 2018-01-14 18:51 | Internal Med Progress Note ---
<Delroy Hurst - Last Filed: 01/14/18 18:49> Date of Encounter: 01/14/18 Time of Encounter: 09:00 - Assessment and plan (1) Lactic acidosis Current Visit: Yes Status: Acute Assessment and plan: - Lactic acid as high as 4.4 this afternoon. - Likely secondary to dehydration. - Continue hydration with IV NS. - Continue to monitor closely. (2) Sepsis Current Visit: Yes Status: Ruled-out Assessment and plan: - Noted to have significant tachycardia with lactic acid as high as 3.8 on . - Unlikely sepsis given patient has been on appropriate antibiotics and is improving clinically. - Patient's tachycardia is likely secondary to dehydration as patient's tachycardia resolved after receiving 1L of IV NS bolus. - Continue hydration with IV NS and current antibiotics regimen for now. - Continue to monitor closely. Qualifiers: Sepsis type: sepsis due to unspecified organism Qualified Code(s): A41.9 - Sepsis, unspecified organism (3) Acute and chronic respiratory failure Current Visit: Yes Status: Resolved Assessment and plan: - Secondary to pneumonia and AE COPD. - Improves as patient reports breathing better and can maintain O2 sat above 93 % on 2L NC. - Continue Levaquin & Flagyl for aspiration pneumonia. - Continue IV Solu-Medrol, bronchodilators and supplemental oxygen. Qualifiers: Respiratory failure complication: hypoxia Qualified Code(s): J96.21 - Acute and chronic respiratory failure with hypoxia (4) Aspiration pneumonia Current Visit: Yes Status: Resolved Assessment and plan: - Chest CTA on 01/06/18 found bibasilar consolidation concerning of aspiration pneumonia. - Continue Levaquin (Day 7) and Flagyl (Day 7). Plan to treat for total of 7-10 days. Qualifiers: Aspiration pneumonia type: unspecified Laterality: bilateral Lung location: lower lobe of lung Qualified Code(s): J69.0 - Pneumonitis due to inhalation of food and vomit (5) Duodenitis Current Visit: Yes Status: Resolved Assessment and plan: - CT A/P on 01/08/18 indicated duodenitis. - Improves as patient's abdominal pain & nausea/vomiting resolved and patient is able to tolerate oral intake well. - Continue omeprazole and Levaquin & Flagyl. (6) Acute exacerbation of chronic obstructive airways disease Current Visit: Yes Status: Acute Assessment and plan: - Continue IV Solu-Medrol, bronchodilators and supplemental oxygen. - Subjective Interval history: Patient was seen and examined this morning. Patient reports feeling better and denies fever, chills, shortness of breath, chest pain, abdominal pain, nausea, vomiting.. - Constitutional Vitals: Temp Pulse Resp BP Pulse Ox 98.3 F 98 18 153/84 93 01/14/18 15:00 01/14/18 15:00 01/14/18 15:00 01/14/18 15:00 01/14/18 15:00 General appearance: Present: A&O X 3, no acute distress - Head Head exam: Present: normal inspection - Eye Eye exam: Present: EOMI - Neck Neck exam general surgery: Present: normal inspection, supple - Respiratory Respiratory exam: Present: CTAB - Cardiovascular Cardiovascular exam: Present: tachycardia (110s this morning, improves compared to 130s yesterday.) - GI/Abdominal GI/Abdominal exam: Present: normal bowel sounds, soft. Absent: tenderness - Extremities Exam Extremities exam: Present: normal inspection. Absent: cyanotic - Neurological Exam Neurological exam: Present: alert, no focal deficits. Absent: facial droop, speech deficit - Skin Skin exam: Present: dry, warm Internal Medicine: Result - Labs CBC & Chem 7: 01/14/18 06:35 01/14/18 06:35 Labs: Short CBC 01/14/18 Range/Units 06:35 WBC 15.1 H (4.3-11.1) K/mcL Hgb 13.3 (12.9-16.9) g/dL Hct 40.3 (37.5-50.1) % Plt Count 245 (140-400) K/mcL Neutrophils # 13.2 H (1.6-8.9) K/mcL BMP 01/14/18 06:35 Sodium 138 Potassium 4.1 Chloride 100 Carbon Dioxide 33 H BUN 25 H Creatinine 0.88 Glucose 155 H Calcium 8.4 L - VTE Documentation of Mechanical Device: Intermittent pneumatic compression device Consult Discharge Plan - Plan Instructions: Chest Pain (DC), Acute Respiratory Distress Syndrome (DC), Chronic Obstructive Pulmonary Disease (DC), Sepsis (DC), Pneumonia (DC) Additional Instructions: Please take two more dose of Flagyl (500 mg orally three times a day) to finish your 7-day course of antibiotic therapy for aspiration pneumonia and duodenitis. Please take prescribed prednisone taper (40 mg x 3 days, then 30 mg x 3 days, followed by 20 mg x 3 days and finally 10 mg x 3 days. Please follow up with your primary care physician within a week. Referrals: All Odell DO [Primary Care Provider] - 01/15/18 9:30 am Prescriptions: Metoprolol [Lopressor] 12.5 mg PO BID #30 tablet metroNIDAZOLE [Flagyl] 500 mg PO TID #2 tablet Omeprazole [PriLOSEC] 40 mg PO DAILY@629 #30 capsule. predniSONE [PredniSONE] See Taper PO DAILY #30 tablet <Maurizio Hyde - Last Filed: 01/14/18 19:08> Date of Encounter: 01/14/18 - Assessment and plan (1) Lactic acidosis Current Visit: Yes Status: Acute (2) Acute and chronic respiratory failure Current Visit: Yes Status: Resolved Qualifiers: Respiratory failure complication: hypoxia Qualified Code(s): J96.21 - Acute and chronic respiratory failure with hypoxia (3) Sepsis Current Visit: Yes Status: Ruled-out Qualifiers: Sepsis type: sepsis due to unspecified organism Qualified Code(s): A41.9 - Sepsis, unspecified organism (4) Aspiration pneumonia Current Visit: Yes Status: Resolved Qualifiers: Aspiration pneumonia type: unspecified Laterality: bilateral Lung location: lower lobe of lung Qualified Code(s): J69.0 - Pneumonitis due to inhalation of food and vomit (5) Duodenitis Current Visit: Yes Status: Resolved (6) Acute exacerbation of chronic obstructive airways disease Current Visit: Yes Status: Acute - Constitutional Vitals: Temp Pulse Resp BP Pulse Ox 98.3 F 98 18 153/84 93 01/14/18 15:00 01/14/18 15:00 01/14/18 15:00 01/14/18 15:00 01/14/18 15:00 Internal Medicine: Result - Labs CBC & Chem 7: 01/14/18 06:35 01/14/18 06:35 Labs: Short CBC 01/14/18 Range/Units 06:35 WBC 15.1 H (4.3-11.1) K/mcL Hgb 13.3 (12.9-16.9) g/dL Hct 40.3 (37.5-50.1) % Plt Count 245 (140-400) K/mcL Neutrophils # 13.2 H (1.6-8.9) K/mcL BMP 01/14/18 06:35 Sodium 138 Potassium 4.1 Chloride 100 Carbon Dioxide 33 H BUN 25 H Creatinine 0.88 Glucose 155 H Calcium 8.4 L - Attending Attestation I examined this patient and my medical decision-making was reviewed with the Resident Physician on 01/14/18. I agree with the documented findings, disposition and treatment plan as described except to the extent set forth below. Mr Pacheco is currently admitted for resp failure and PNA. He continues to have elevated lactate. He remains moderate to high risk due to potential for worsening clinical status. Mr Pacheco feels OK. His mouth is dry He had 3 good BMs today. No pain noted. Less dyspnea. No fever or chills. Exam alert Comfortable Mucus membranes dry Heart reg Scant wheeze noted Abd soft I/P 1. Lactic acidosis - persists despite treatment. Continue fluids. Recheck in AM 2. Resp failure Further diagnoses and plan as above.
[2018-01-14] MEDS: Ipratropium/Albuterol Neb 3 ML IH PRN (20:57)
[2018-01-15] MEDS: Ipratropium/Albuterol Neb 3 ML IH PRN ×3 (03:43→15:57)
[2018-01-15 04:30] LABS: Hematocrit 45.9 % (37.5-50.1); Lymphocytes # 1.3 K/mcL (0.6-4.6); Lymphocytes % 5.6 %; Mean Corpuscular HGB Conc 32.7 g/dL (31.6-35.5); Mean Corpuscular Hemoglobin 29.9 pg (28.0-33.3); Mean Corpuscular Volume 91.6 fL (83.0-100.0); Mean Platelet Volume 9.3 fL (9.4-12.4); Monocytes # 1.7 K/mcL (0.0-1.3); Monocytes % 7.5 %; Neutrophils # 18.7 K/mcL (1.6-8.9); Platelet Count 311 K/mcL (140-400); Red Blood Count 5.01 M/mcL (4.19-5.50); Red Cell Distribution Width 12.9 % (11.5-14.5); Segmented Neutrophils % 81.9 %
[2018-01-15 04:47] LABS: BUN/Creatinine Ratio 25 (6-26); Blood Urea Nitrogen 24 mg/dL (8-23); Calcium 8.8 mg/dL (8.6-10.3); Carbon Dioxide 32 mEq/L (23-29); Chloride 99 mEq/L (98-107); Glucose 126 mg/dL (70-105); Osmolality,Calculated 292 (280-300); Potassium 4.3 mEq/L (3.5-5.1); Sodium 138 mEq/L (136-145); eGFR For African Americans > 60 (> 60); eGFR For Non-African Americans > 60 (> 60)
[2018-01-15] MEDS: 0.9 % Sodium Chloride 1,000 ML IVC SCH ×2 (05:00→15:29)
[2018-01-15 05:04] LABS: Platelet Estimate Normal (Normal); Reactive Lymphocytes Present (Not Present)
[2018-01-15] MEDS: MethylPREDNISolone 40 MG/ML VIAL IVP SCH ×2 (06:17→16:32)
[2018-01-15] MEDS: hydroCHLOROthiazide 25 MG TABLET PO SCH (08:08)
[2018-01-15] MEDS: metroNIDAZOLE 500 MG TABLET PO SCH ×3 (08:08→20:13)
[2018-01-15] MEDS: Aspirin Enteric Coated 81 MG Tablet PO SCH (08:08)
[2018-01-15] MEDS: levoFLOXacin 750 MG TABLET PO SCH (08:08)
[2018-01-15] MEDS: PrednisoLONE Acetate 1% Opth 5 ML BOTTLE RIGHT EYE SCH ×2 (08:14→20:12)
[2018-01-15] MEDS: Ketorolac OPTH Soln 5 ML BOTTLE RIGHT EYE SCH ×2 (08:15→20:11)
[2018-01-15] MEDS: Insulin LISPRO 300 UNITS/3 ML VIAL SQ SCH ×4 (08:15→20:17)
--- NOTE | 2018-01-15 08:32 | Internal Med Progress Note ---
<Delroy Hurst - Last Filed: 01/15/18 16:08> Date of Encounter: 01/15/18 Time of Encounter: 08:15 - Assessment and plan (1) Sepsis Current Visit: Yes Status: Ruled-out Assessment and plan: - Noted to have tachycardia and lactic acid as high as 4.4 on 01/14/18. - Doubt sepsis given patient has been on appropriate antibiotics and is improving clinically. - Patient's tachycardia is likely secondary to dehydration as patient's tachycardia improves after hydration with IV fluid. - Worsening leukocytosis today raised the concern of underlying infection. - Blood cultures and urine culture were collected and result pending. - ID has been consulted and appreciate input. - CT chest/abdomen/pelvis with contrast today showed improvement of pneumonia and duodenitis without significant evidence of other infection source. - Continue hydration with IV NS and current antibiotics regimen for now. - Continue to monitor closely. Qualifiers: Sepsis type: sepsis due to unspecified organism Qualified Code(s): A41.9 - Sepsis, unspecified organism (2) Lactic acidosis Current Visit: Yes Status: Acute Assessment and plan: - Lactic acid as high as 4.4 on 01/14/18. - Slightly improves as lactic acid 3.8 today. - Doubt sepsis and feels more likely secondary to dehydration or other underlying cause given patient's clinical picture continues to improve. - Continue to monitor closely. (3) Aspiration pneumonia Current Visit: Yes Status: Resolved Assessment and plan: - Chest CTA on 01/06/18 found bibasilar consolidation concerning of aspiration pneumonia. - Continue Levaquin (Day ) and Flagyl (Day 8). Plan to treat for total of 7-10 days. - CT chest with constrast today showed significant improvement of bilateral consolidation and no finding suggestive of source of infection. Qualifiers: Aspiration pneumonia type: unspecified Laterality: bilateral Lung location: lower lobe of lung Qualified Code(s): J69.0 - Pneumonitis due to inhalation of food and vomit (4) Acute and chronic respiratory failure Current Visit: Yes Status: Resolved Assessment and plan: - Secondary to pneumonia and AE COPD. - Improves as patient reports breathing better and can maintain O2 sat above 92 % on 2L NC. - Continue Levaquin & Flagyl for aspiration pneumonia. - Continue IV Solu-Medrol, bronchodilators and supplemental oxygen. Qualifiers: Respiratory failure complication: hypoxia Qualified Code(s): J96.21 - Acute and chronic respiratory failure with hypoxia (5) Duodenitis Current Visit: Yes Status: Resolved Assessment and plan: - CT A/P on 01/08/18 indicated duodenitis. - Improves as patient's abdominal pain & nausea/vomiting resolved and patient is able to tolerate oral intake well. - Continue omeprazole and Levaquin & Flagyl. (6) Acute exacerbation of chronic obstructive airways disease Current Visit: Yes Status: Acute Assessment and plan: - Continue IV Solu-Medrol, bronchodilators and supplemental oxygen. - Subjective Interval history: Patient was seen and examined this morning. Patient reports no complaint and denies fever, chills, shortness of breath, chest pain, abdominal pain, nausea, vomiting. Patient reports no vision change and denies any pain with eye movement. - Constitutional Vitals: Temp Pulse Resp BP Pulse Ox 98.1 F 112 18 152/101 96 01/15/18 07:00 01/15/18 07:00 01/15/18 07:00 01/15/18 07:00 01/15/18 07:00 General appearance: Present: A&O X 3, no acute distress - Head Head exam: Present: normal inspection - Eye Eye exam: Present: EOMI. Absent: periorbital swelling, periorbital tenderness - Neck Neck exam general surgery: Present: normal inspection, trachea midline - Respiratory Respiratory exam: Present: CTAB - Cardiovascular Cardiovascular exam: Present: RRR, +S1, +S2 - GI/Abdominal GI/Abdominal exam: Present: normal bowel sounds, soft. Absent: tenderness - Extremities Exam Extremities exam: Present: normal inspection. Absent: cyanotic - Neurological Exam Neurological exam: Present: alert, no focal deficits. Absent: facial droop, speech deficit - Skin Skin exam: Present: dry, warm Internal Medicine: Result - Labs CBC & Chem 7: 01/15/18 08:16 01/15/18 04:10 Labs: Short CBC 01/15/18 Range/Units 04:10 WBC 22.8 H D (4.3-11.1) K/mcL Hgb 15.0 D (12.9-16.9) g/dL Hct 45.9 (37.5-50.1) % Plt Count 311 (140-400) K/mcL Neutrophils # 18.7 H (1.6-8.9) K/mcL BMP 01/15/18 04:10 Sodium 138 Potassium 4.3 Chloride 99 Carbon Dioxide 32 H BUN 24 H Creatinine 0.95 Glucose 126 H Calcium 8.8 - VTE Documentation of Mechanical Device: Intermittent pneumatic compression device Consult Discharge Plan - Plan Instructions: Chest Pain (DC), Acute Respiratory Distress Syndrome (DC), Chronic Obstructive Pulmonary Disease (DC), Sepsis (DC), Pneumonia (DC) Additional Instructions: Please take two more dose of Flagyl (500 mg orally three times a day) to finish your 7-day course of antibiotic therapy for aspiration pneumonia and duodenitis. Please take prescribed prednisone taper (40 mg x 3 days, then 30 mg x 3 days, followed by 20 mg x 3 days and finally 10 mg x 3 days. Please follow up with your primary care physician within a week. Referrals: All Odell DO [Primary Care Provider] - 01/15/18 9:30 am Prescriptions: Metoprolol [Lopressor] 12.5 mg PO BID #30 tablet metroNIDAZOLE [Flagyl] 500 mg PO TID #2 tablet Omeprazole [PriLOSEC] 40 mg PO DAILY@0630 #30 capsule. predniSONE [PredniSONE] See Taper PO DAILY #30 tablet <Maurizio Hyde - Last Filed: 01/15/18 19:25> Date of Encounter: 01/15/18 - Assessment and plan (1) Sepsis Current Visit: Yes Status: Ruled-out Qualifiers: Sepsis type: sepsis due to unspecified organism Qualified Code(s): A41.9 - Sepsis, unspecified organism (2) Lactic acidosis Current Visit: Yes Status: Acute (3) Acute and chronic respiratory failure Current Visit: Yes Status: Resolved Qualifiers: Respiratory failure complication: hypoxia Qualified Code(s): J96.21 - Acute and chronic respiratory failure with hypoxia (4) Aspiration pneumonia Current Visit: Yes Status: Resolved Qualifiers: Aspiration pneumonia type: unspecified Laterality: bilateral Lung location: lower lobe of lung Qualified Code(s): J69.0 - Pneumonitis due to inhalation of food and vomit (5) Duodenitis Current Visit: Yes Status: Resolved (6) Acute exacerbation of chronic obstructive airways disease Current Visit: Yes Status: Acute - Constitutional Vitals: Temp Pulse Resp BP Pulse Ox 98.0 F 107 16 151/94 93 01/15/18 15:00 01/15/18 15:00 01/15/18 15:57 01/15/18 15:00 01/15/18 15:57 Internal Medicine: Result - Labs CBC & Chem 7: 01/15/18 08:16 01/15/18 04:10 Labs: Short CBC 01/15/18 01/15/18 Range/Units 04:10 08:16 WBC 22.8 H D 20.6 H (4.3-11.1) K/mcL Hgb 15.0 D 14.9 (12.9-16.9) g/dL Hct 45.9 45.8 (37.5-50.1) % Plt Count 311 295 (140-400) K/mcL Neutrophils # 18.7 H 18.1 H (1.6-8.9) K/mcL BMP 01/15/18 04:10 Sodium 138 Potassium 4.3 Chloride 99 Carbon Dioxide 32 H BUN 24 H Creatinine 0.95 Glucose 126 H Calcium 8.8 - Impressions Impressions Abdomen/Pelvis CT 01/15/18 13:45 IMPRESSION: 1. Minimal bibasilar atelectasis has nearly resolved compared to previous study. No other discrete CT chest, abdomen or pelvis finding to suggest origin for the patient's fever. 2. Emphysema. 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 Surveillance CT imaging is recommended in 5 years, per the recommendations below*. 4. Mild hepatic steatosis. ____ * Managing Abdominal Aortic Aneurysms 2.6-2.9 cm: Every 5 years* 3.0-3.4 cm: Every 3 years. 3.5-3.9 cm: Every 1 year. 4.0-4.4 cm: Every 1 year. Recommend vascular consultation. 4.5-5.4 cm: Every 6 months. Recommend vascular consultation. Greater than or equal to 5.5 cm: Referral to vascular surgeon. *For abdominal aortas with maximum diameter of 2.6-2.9 cm meeting criteria for AAA (>50% of proximal normal segment). Reference: J Vasc Surg. 2008;50(4 Suppl):S2-49 D/ / Riccardo Rodriguez / Riccardo Rodriguez Interpreting Provider: Riccardo Rodriguez Chest CT 01/15/18 13:45 IMPRESSION: 1. Minimal bibasilar atelectasis has nearly resolved compared to previous study. No other discrete CT chest, abdomen or pelvis finding to suggest origin for the patient's fever. 2. Emphysema. 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 Surveillance CT imaging is recommended in 5 years, per the recommendations below*. 4. Mild hepatic steatosis. ____ * Managing Abdominal Aortic Aneurysms 2.6-2.9 cm: Every 5 years* 3.0-3.4 cm: Every 3 years. 3.5-3.9 cm: Every 1 year. 4.0-4.4 cm: Every 1 year. Recommend vascular consultation. 4.5-5.4 cm: Every 6 months. Recommend vascular consultation. Greater than or equal to 5.5 cm: Referral to vascular surgeon. *For abdominal aortas with maximum diameter of 2.6-2.9 cm meeting criteria for AAA (>50% of proximal normal segment). Reference: J Vasc Surg. 2008;50(4 Suppl):S2-49 D/ / Riccardo Rodriguez / Riccardo Rodriguez Interpreting Provider: Riccardo Rodriguez - Attending Attestation I examined this patient and my medical decision-making was reviewed with the Resident Physician on 01/15/18. I agree with the documented findings, disposition and treatment plan as described except to the extent set forth below. Mr Pacheco is currently admitted for pneumonia and COPD. He has significant leukocytosis today and lactic acid still elevated. He remains moderate to high risk due to potential for worsening clinical status. Mr Pacheco feels well. No CP. Breathing OK. No fever or chills. No abd pain. No diarrhea. Exam alert Comfortable Mucus membranes dry Heart reg Diminished lungs I/P 1. Sepsis - no clear source of infection at this time. ID eval appreciated. 2. PNA Further diagnoses and plan as above.
[2018-01-15 09:01] LABS: Hematocrit 45.8 % (37.5-50.1); Hemoglobin 14.9 g/dL (12.9-16.9); Lymphocytes # 0.8 K/mcL (0.6-4.6); Mean Corpuscular HGB Conc 32.5 g/dL (31.6-35.5); Mean Corpuscular Hemoglobin 29.7 pg (28.0-33.3); Mean Corpuscular Volume 91.2 fL (83.0-100.0); Mean Platelet Volume 9.4 fL (9.4-12.4); Platelet Count 295 K/mcL (140-400); Red Blood Count 5.02 M/mcL (4.19-5.50); Red Cell Distribution Width 12.9 % (11.5-14.5)
[2018-01-15 09:25] LABS: Monocytes # 1.7 K/mcL (0.0-1.3); Neutrophils # 18.1 K/mcL (1.6-8.9); Platelet Estimate Normal (Normal)
--- NOTE | 2018-01-15 12:38 | Infectious Disease Consult ---
Date of Encounter: 01/15/18 Time of Encounter: 12:38 Assessment and Plan (1) Pneumonia Status: Acute Assessment and plan: Patient presented with shortness of breath, tachycardia, tachypnea and elevated WBC Organism: Unknown - CTA 01/06/2018 demonstrated bibasilar infiltrations concerning for pneumonia and possible aspiration - Received initially 2 days of IV Zosyn - IV Levaquin and Flagyl 8 days - Severe COPD, unsure if oxygen requirements are increased as patient was not consistent with home oxygen. - CT of the chest performed 01/15/2018 demonstrates nearly resolved atelectasis bibasilar Qualifiers: Pneumonia type: due to unspecified organism Laterality: bilateral Lung location: lower lobe of lung Qualified Code(s): J18.1 - Lobar pneumonia, unspecified organism (2) Septic shock Status: Acute Assessment and plan: Patient meets septic shock with WBC of 20, lactic acid of 4.4, tachycardia, treatment for pneumonia - Blood cultures 2 01/06/2018- no growth - Urine streptococcal antigen negative - Urine Legionella antigen negative Blood cultures 2, urine culture collected 01/15/2018 - Current antibiotics IV Flagyl and Levaquin (day 8 both) (3) Lactic acidosis Status: Acute Assessment and plan: Lactic acid 4.4 -Underlying cause currently unknown - No exam findings of infection. - Continue current treatment for sepsis. (4) Leukocytosis Status: Acute Assessment and plan: White blood cell count 20.6 - Patient treated for Bibasilar pneumonia and COPD exacerbation - Patient has received IV steroids and oral steroids continued at stable dose greater than 5 days - No current findings of infection Qualifiers: Leukocytosis type: unspecified Qualified Code(s): D72.829 - Elevated white blood cell count, unspecified (5) Duodenitis Status: Resolved Assessment and plan: Patient treated for duodenitis starting on 01/08/2018 - IV antibiotics Flagyl and Levaquin 8 days - Tolerating oral intake, no recurrence of nausea and vomiting, normal stool output. (6) Acute and chronic respiratory failure Status: Acute Assessment and plan: Baseline severe COPD, COPD exacerbation likely secondary to superimposed bibasilar pneumonia. - Currently on 2L [place] oxygen which is likely baseline - Pulmonology involved - Managed by Pulmonology and Primary team Qualifiers: Respiratory failure complication: hypoxia and hypercapnia Qualified Code(s) : J96.21 - Acute and chronic respiratory failure with hypoxia; J96.22 - Acute and chronic respiratory failure with hypercapnia; J96.22 - Acute and chronic respiratory failure with hypercapnia; J96.22 - Acute and chronic respiratory failure with hypercapnia Infectious Disease HPI - Data of Consult Consult date: 01/15/18 Requesting Physician: aMurizio Hyde DO Primary Care Provider: All Odell, - Consult Narrative Reason for consult: Worsening leukocytosis and persistent lactic acidosis History of present illness: Mr. Pacheco presents the emergency department on 01/06/2018 with acute shortness of breath and chest discomfort. Infectious disease consult placed on 2017 for leukocytosis and lactic acidosis with unknown source. Mr. Pacheco 77-year-old male with significant past medical history of severe COPD occasional oxygen use at home, previous smoker, gout, and recent cataract surgery on 01/05/2018 (Friday morning), woke up on Friday morning with acute shortness of breath and substernal chest discomfort without radiation. He was able to get to his nebulizer and take breathing treatments and presented to his manager transfer for follow-up. He contacted his primary care provider by phone and discussed his symptoms and was advised to go to the emergency department for further evaluation. He denied any other significant symptoms such as fevers, chills, diaphoresis, syncope, near-syncope, excess sputum production, palpitations, abdominal pain, nausea vomiting diarrhea constipation or urinary changes including urinary retention. He denies any recent infections , recent treatment for infection or wounds. Denies any other symptoms or pain. During his cataract procedure he says that he had oral sedation but was never unconscious and was able to talk to the surgeon through the entire procedure. Upon presentation to the emergency department initial vitals demonstrated temp of 99.5, tachycardia 126, tachypnea with respiratory rate of 34, hypertension 166/89 and oxygen saturation 88% on 3 L. Initial lab work demonstrated WBC of 23.3, segmented neutrophils 89.7%, neutrophil #20.9, lactic acid 3.1, stable renal function and initial urinalysis was without significant findings. Blood cultures 2, sputum culture, urine streptococcus antigen and Legionella were all collected all were negative/no growth. Chest x-ray demonstrated emphysematous changes with no focal airspace consolidation or pulmonary vascular congestion. CTA of the chest demonstrates bibasilar consolidation consistent with pneumonia, small airway opacifications likely mucous plugging versus aspiration. He was started on IV Zosyn and methylprednisone IV. IV Zosyn 2 days. He was switched to IV Levaquin and Flagyl after he started having abdominal discomfort nausea and vomiting and underwent CT abdomen and pelvis which demonstrated duodenitis. Patient's respiratory status was not improving on 01/09/2018 and pulmonology was involved without significant change to antibiotic coverage. Patient continued to have abdominal discomfort and distention with nausea and vomiting which resolved by 01/13/2018 and patient was able to start tolerating oral intake. During this time leukocytosis continued to improve until 01/12/2018 when started to trend back up. Respiratory infectious panel was collected which was negative. Lactic acid elevated up to 4.4 on 01/14/2018. 01/15/2018 WBC elevated to 20 with increased lactic acidosis, tachycardia not resolved and blood cultures, urine culture were re-collected. Upon evaluation on Mr. Pacheco, he had Just returned from CT of the chest abdomen and pelvis. He states that he is doing well heals almost back to baseline and is awaiting discharge home. He states that he originally presented with shortness of breath and substernal chest discomfort which was relieved in the emergency department and improved with steroids oxygen antibiotics initially. He developed nausea and vomiting on Friday which continued for a few days and has since resolved. Currently he feels back to his normal state of health denies ever having any fevers, chills, diaphoresis, change in visual status headaches, earaches, oral pain, nasal discharge, neck pain or sore throats, diarrhea or constipation, genital pain or rectal pain, pain in any of his extremities or any lesions cuts or reddening or warmth on his body. He says that his oxygen saturations are usually 80% at home, he has oxygen that he uses occasionally at 2 L but otherwise feels at his normal requirements. He denies any change to sputum production, chest discomfort or discomfort with deep breathing. He states the only reason he is still here is because of abnormal lab findings. CC: Maurizio Hyde, DO Past Med Surg Social Fam HX - Past Medical History Medical history: COPD, hypertension Psychiatric history: no psych history, anxiety - Social History Smoking Status: Former smoker Smokeless Tobacco Status: No Alcohol use: none Drug use: none - Family History Mother History Unknown: Yes Adopted: No Family Member Ethnicity: Non- Living Status: Age at : 76 Cause of : cancer Hx Family Cancer: Yes Infectious Disease-CN:Meds Allopurinol [Zyloprim 100 MG] 100 mg PO DAILY 01/06/18 [History] Aspirin Enteric Coated [Aspirin EC] 81 mg PO DAILY 01/06/18 [History] Budesonide/Formoterol 80/4.5 [Symbicort 80/4.5] 2 puff IH BID 01/06/18 [History ] Gatifloxacin [Zymaxid] 1 drop RIGHT EYE BID 01/06/18 [History] Ipratropium Neb [Atrovent Neb] 0.5 mg IH Q6H 01/06/18 [History] Ketorolac OPTH Soln [Acular] 1 drop RIGHT EYE BID 01/06/18 [History] Levalbuterol Neb [Xopenex Neb] 0.63 mg IH Q6H 01/06/18 [History] Olmesartan Medoxomil 40 mg PO DAILY 01/06/18 [History] PrednisoLONE Acetate 1% Opth [PredFORTE 1%] 1 drop RIGHT EYE BID 01/06/18 [ History] Vit C/E/Zn/Coppr/Lutein/Zeaxan [Preservision Areds 2 Softgel] 1 each PO BID [History] hydroCHLOROthiazide [Hydrochlorothiazide] 25 mg PO DAILY 01/06/18 [History] Metoprolol [Lopressor] 12.5 mg PO BID #30 tablet 01/14/18 [Rx] Omeprazole [PriLOSEC] 40 mg PO DAILY@0630 #30 capsule. 01/14/18 [Rx] metroNIDAZOLE [Flagyl] 500 mg PO TID #2 tablet 01/14/18 [Rx] predniSONE [PredniSONE] See Taper PO DAILY #30 tablet 01/14/18 [Rx] 3 Allergy/AdvReac Type Severity Reaction Status Date / Time Powdered Inhalers Allergy Difficulty Uncoded 01/06/18 18:27 Breathing - Constitutional Constitutional: Present: as per HPI. Absent: chills, excessive sweating, frequent falls, headache(s), weakness - EENT Eyes: Absent: blind spots, blurry vision, diplopia Exam - Constitutional Vitals: Temp Pulse Resp BP Pulse Ox 97.9 F 102 20 154/93 98 01/15/18 11:00 01/15/18 11:00 01/15/18 11:00 01/15/18 11:00 01/15/18 11:00 Exam: General: Patient alert, awake, oriented 3, interactive, in no acute distress HEENT: Normocephalic, atraumatic, pupils equal reactive to light, nasal cavity patent and open septum median position, oral mucosa moist, upper and lower dentures, neck supple trachea midline no palpable lymphadenopathy, no thyromegaly. Chest: Symmetric bilateral correlating with respiratory effort, effort nonlabored. Cardiac: Regular rate and rhythm, positive S1 and S2. no bruits appreciated bilateral carotids, Radial pulses 2+ bilateral, posterior tibial and dorsal pedal pulses 2+ bilateral. Respiratory: Diffusely diminished inspiratory and expiratory breath sounds with diffuse wheezing. Abdomen: Soft, nontender, positive bowel sounds, no palpable masses appreciated on examination Extremities: Symmetric bilateral, bilateral lower extremities without erythema or edema patient moving all 4 extremities spontaneously. Neurologic: No focal deficits appreciated on examination. Face symmetric, muscle strength symmetric bilateral upper and lower extremities. Infectious Disease CN: Results - Labs CBC & Chem 7: 01/15/18 08:16 01/15/18 04:10 Cultures: Cultures 01/12/18 02:23 Sputum Culture - Final Sputum 01/13/18 02:23 Legionella Antigen - Final Urine,Clean Catch 01/12/18 02:23 Streptococcus pneumoniae Antigen (M - Final Urine,Clean Catch Serology: Serology 01/12/18 Range/Units 00:16 Chlamy pneumoniae PCR Not Detected (Not Detect) Adenovirus (PCR) Not Detected (Not Detect) B. pertussis DNA (PCR) Not Detected (Not Detect) B.parapertussis DNA PCR Not Detected (Not Detect) Coronavirus OC43 (PCR) Not Detected (Not Detect) Coronavirus HKU1 (PCR) Not Detected (Not Detect) Coronavirus 229E (PCR) Not Detected (Not Detect) Coronavirus NL63 (PCR) Not Detected (Not Detect) Human Metapneumovir PCR Not Detected (Not Detect) Influenza A (H1) PCR Not Detected (Not Detect) Influ A (H1N1/09) PCR Not Detected (Not Detect) Influenza A (H3) PCR Not Detected (Not Detect) Influenza A Untype (PCR) Not Detected (Not Detect) Influenza Type B (PCR) Not Detected (Not Detect) M.pneumoniae DNA (PCR) Not Detected (Not Detect) Parainfluenza 1 (PCR) Not Detected (Not Detect) Parainfluenza 2 (PCR) Not Detected (Not Detect) Parainfluenza 3 (PCR) Not Detected (Not Detect) Parainfluenza 4 (PCR) Not Detected (Not Detect) RSV (PCR) Not Detected (Not Detect) Entero/Rhino (PCR) Not Detected (Not Detect) - VTE Documentation of Mechanical Device: Intermittent pneumatic compression device Consult Discharge Plan - Plan Instructions: Chest Pain (DC), Acute Respiratory Distress Syndrome (DC), Chronic Obstructive Pulmonary Disease (DC), Sepsis (DC), Pneumonia (DC) Additional Instructions: Please take two more dose of Flagyl (500 mg orally three times a day) to finish your 7-day course of antibiotic therapy for aspiration pneumonia and duodenitis. Please take prescribed prednisone taper (40 mg x 3 days, then 30 mg x 3 days, followed by 20 mg x 3 days and finally 10 mg x 3 days. Please follow up with your primary care physician within a week. Referrals: All Odell DO [Primary Care Provider] - 01/15/18 9:30 am Prescriptions: Metoprolol [Lopressor] 12.5 mg PO BID #30 tablet metroNIDAZOLE [Flagyl] 500 mg PO TID #2 tablet Omeprazole [PriLOSEC] 40 mg PO DAILY@0630 #30 capsule. predniSONE [PredniSONE] See Taper PO DAILY #30 tablet - Attending Attestation I examined this patient and my medical decision-making was reviewed with the Resident Physician. I agree with the documented findings, disposition and treatment plan as described except to the extent set forth below. Patient is a 77 year old gentleman with past medical history mentioned below was admitted on 01/06 with chest pain and shortness, we are consulted today for leukocytosis and lactic acidosis. Patient with severe copd , gout, and recent cataract surgery came in complaining of chest pain, shortness of breath which was acute onset. Patient did have cough that was not productive. Patient denies any fevers, chills, sweating etc. Since admission, patient had no fever, tmax 99.5F, tachycardic and with a WBC of 23.3 with 90% neutrophils and lactic acidosis. Blood cultures obtained and were negative. CT chest on 01 06 revealed significant COPD and bilateral bases pneumonia. Patient was started on IV zosyn x 2 days, then switchted to unasyn for 2 days then started on Levaquin and flagyl on 01/08 and started improving clinically and WBC almost normalized, on 01/[address] abdomen/pelvis which revealed duodenitis, during this time patient also has been on high dose steroids. Patient has had lactic acidosis, and WBC got worse again at 20.6 with 88% neutrophils. Repeat CT chest, abdomen and pelvis shows resolution of bilateral pneumonia and duodenitis. Patient had a RIP on 01/12 which didnt bean picker any organism on the PCR, urine legionella and pneumococcal antigen are negative. We were asked to see patient and make further reocmmendations. Currently, patient appears comfortable. Ros is unremarkable Physical exam as above a/p: 1. lactic acidosis 2. sepsis 3. pneumonia 4. duodenitis 5. persistent leukocytosis 6. COPD 7. h/o gout At this point not sure whats causing his lactic acidosis at this time, infectious is always a concern but hes doing very well clinically and might consider non infectious etiology including Beta agonists, respiratory alkalosis ? vs asthma/copd vs hypoperfusion vs other? CT/s and blood cultures and RIP not impressive. As for the leukocytosis, patient is on prednisone 40 and solumedrol 40 q12 as well Will check procaclitonin level Check peripheral smear Await cultures No change in antibiotics
[2018-01-15] MEDS: Nystatin SUSP 5 ML UD.LIQ PO SCH ×2 (20:13→23:53)
[2018-01-16] MEDS: 0.9 % Sodium Chloride 1,000 ML IVC SCH (01:52)
[2018-01-16] MEDS: Insulin LISPRO 300 UNITS/3 ML VIAL SQ SCH ×2 (07:51→12:06)
[2018-01-16 07:54] LABS: Basophils # 0.1 K/mcL (0.0-0.2); Basophils % 0.7 %; Eosinophils % 0.1 %; Hematocrit 43.6 % (37.5-50.1); Hemoglobin 14.2 g/dL (12.9-16.9); Lymphocytes # 1.1 K/mcL (0.6-4.6); Lymphocytes % 5.8 %; Mean Corpuscular HGB Conc 32.6 g/dL (31.6-35.5); Mean Corpuscular Hemoglobin 30.1 pg (28.0-33.3); Mean Corpuscular Volume 92.4 fL (83.0-100.0); Mean Platelet Volume 9.4 fL (9.4-12.4); Monocytes # 1.5 K/mcL (0.0-1.3); Monocytes % 7.8 %; Neutrophils # 16.1 K/mcL (1.6-8.9); Platelet Count 262 K/mcL (140-400); Red Blood Count 4.72 M/mcL (4.19-5.50); Red Cell Distribution Width 12.8 % (11.5-14.5); Segmented Neutrophils % 81.6 %
[2018-01-16] MEDS: Nystatin SUSP 5 ML UD.LIQ PO SCH ×2 (07:55→13:49)
[2018-01-16] MEDS: Aspirin Enteric Coated 81 MG Tablet PO SCH (07:55)
[2018-01-16] MEDS: levoFLOXacin 750 MG TABLET PO SCH (07:56)
[2018-01-16] MEDS: hydroCHLOROthiazide 25 MG TABLET PO SCH (07:56)
[2018-01-16] MEDS: metroNIDAZOLE 500 MG TABLET PO SCH (07:56)
[2018-01-16] MEDS: Ketorolac OPTH Soln 5 ML BOTTLE RIGHT EYE SCH (07:56)
[2018-01-16] MEDS: PrednisoLONE Acetate 1% Opth 5 ML BOTTLE RIGHT EYE SCH (07:57)
[2018-01-16 08:03] LABS: BUN/Creatinine Ratio 22 (6-26); Blood Urea Nitrogen 20 mg/dL (8-23); Calcium 8.5 mg/dL (8.6-10.3); Carbon Dioxide 35 mEq/L (23-29); Chloride 98 mEq/L (98-107); Glucose 100 mg/dL (70-105); Osmolality,Calculated 287 (280-300); Potassium 4.1 mEq/L (3.5-5.1); Sodium 137 mEq/L (136-145); eGFR For African Americans > 60 (> 60); eGFR For Non-African Americans > 60 (> 60)
--- NOTE | 2018-01-16 08:39 | Infectious Disease Progress No ---
Date of Encounter: 01/16/18 Time of Encounter: 08:39 - Assessment and Plan (1) Pneumonia Current Visit: Yes Status: Acute Patient presented with shortness of breath, tachycardia, tachypnea and elevated WBC Organism: Unknown - CTA 01/06/2018 demonstrated bibasilar infiltrations concerning for pneumonia and possible aspiration - IV Levaquin and Flagyl 9 days - Severe COPD, unsure if oxygen requirements are increased as patient was not consistent with home oxygen. - CT of the chest performed 01/15/2018 demonstrates nearly resolved atelectasis bibasilar Repeat blood cultures and urine cultures collected 01/15/2018 pending results - Pro calcitonin pending - Blood smear pending clinically appears stable. Qualifiers: Pneumonia type: due to unspecified organism Laterality: bilateral Lung location: lower lobe of lung Qualified Code(s): J18.1 - Lobar pneumonia, unspecified organism (2) Septic shock Current Visit: Yes Status: Acute 01/15: Patient meets septic shock with WBC of 20, lactic acid of 4.4, tachycardia , treatment for pneumonia 01/16: Patient continues of leukocytosis, afebrile, heart rate appropriate, normal respiratory rate, blood pressure stable in oxygen saturations at 95% from baseline 2 L oxygen. - Blood cultures 2 01/06/2018- no growth - Urine streptococcal antigen negative - Urine Legionella antigen negative Blood cultures 2, urine culture collected 01/15/2018 - Current antibiotics IV Flagyl and Levaquin (day 9 both) (3) Lactic acidosis Current Visit: Yes Status: Acute Resolved today, likely type B lactic acidosis as currently no source of active infection. Patient clinically improving. (4) Leukocytosis Current Visit: Yes Status: Acute Continues to have leukocytosis with today WBC 19.8 - May be secondary to steroids and recent pneumonia. Qualifiers: Leukocytosis type: unspecified Qualified Code(s): D72.829 - Elevated white blood cell count, unspecified (5) Duodenitis Current Visit: Yes Status: Resolved Patient treated for duodenitis starting on 01/08/2018 - Repeat chest CT of the abdomen and pelvis without concerning findings. - IV antibiotics Flagyl and Levaquin days - Tolerating oral intake, no recurrence of nausea and vomiting, normal stool output. (6) Acute and chronic respiratory failure Current Visit: Yes Status: Acute Baseline severe COPD, COPD exacerbation likely secondary to superimposed bibasilar pneumonia. - Currently on 2L [place] oxygen which is likely baseline - Pulmonology involved - Managed by Pulmonology and Primary team Qualifiers: Respiratory failure complication: hypoxia and hypercapnia Qualified Code(s) : J96.21 - Acute and chronic respiratory failure with hypoxia; J96.22 - Acute and chronic respiratory failure with hypercapnia; J96.22 - Acute and chronic respiratory failure with hypercapnia; J96.22 - Acute and chronic respiratory failure with hypercapnia - Subjective Interval history: Mr. Pacheco a 77-year-old male seen and evaluated patient bedside. He denies any fevers, chills, diaphoresis, abdominal pain, nausea vomiting diarrhea or constipation. He feels like he is moving air appropriately and has no concerns at this time. No acute events overnight, he is awaiting discharge home. Infect Dis PN-Objective Data - Labs CBC & Chem 7: 01/16/18 07:33 01/16/18 07:33 Labs: Laboratory Results - last 24 hr 01/14/18 01/15/18 01/15/18 19:34 08:16 11:29 WBC 20.6 H RBC 5.02 Hgb 14.9 Hct 45.8 MCV 91.2 MCH 29.7 MCHC 32.5 RDW 12.9 Plt Count 295 MPV 9.4 Immature Gran % Seg Neutrophils % 88.0 Lymphocytes % 4.0 Monocytes % 8.0 Eosinophils % Basophils % Neutrophils # 18.1 H Lymphocytes # 0.8 Monocytes # 1.7 H Eosinophils # Basophils # Platelet Estimate Normal Smear Path Review See Below Sodium Potassium Chloride Carbon Dioxide BUN Creatinine Est GFR ( Amer) Est GFR (Non-Af Amer) BUN/Creatinine Ratio Glucose POC Glucose 193 H 160 H Calculated Osmolality Lactic Acid Calcium 01/15/18 01/15/18 01/16/18 15:45 20:16 07:20 WBC RBC Hgb Hct MCV MCH MCHC RDW Plt Count MPV Immature Gran % Seg Neutrophils % Lymphocytes % Monocytes % Eosinophils % Basophils % Neutrophils # Lymphocytes # Monocytes # Eosinophils # Basophils # Platelet Estimate Smear Path Review Sodium Potassium Chloride Carbon Dioxide BUN Creatinine Est GFR ( Amer) Est GFR (Non-Af Amer) BUN/Creatinine Ratio Glucose POC Glucose 107 H 288 H 92 Calculated Osmolality Lactic Acid Calcium 01/16/18 01/16/18 01/16/18 07:33 07:33 07:33 WBC 19.8 H RBC 4.72 Hgb 14.2 Hct 43.6 MCV 92.4 MCH 30.1 MCHC 32.6 RDW 12.8 Plt Count 262 MPV 9.4 Immature Gran % 4.0 Seg Neutrophils % 81.6 Lymphocytes % 5.8 Monocytes % 7.8 Eosinophils % 0.1 Basophils % 0.7 Neutrophils # 16.1 H Lymphocytes # 1.1 Monocytes # 1.5 H Eosinophils # 0.0 Basophils # 0.1 Platelet Estimate Smear Path Review Sodium 137 Potassium 4.1 Chloride 98 Carbon Dioxide 35 H BUN 20 Creatinine 0.90 Est GFR ( Amer) > 60 Est GFR (Non-Af Amer) > 60 BUN/Creatinine Ratio 22 Glucose 100 POC Glucose Calculated Osmolality 287 Lactic Acid 1.6 Calcium 8.5 L Cultures: Cultures 01/12/18 02:23 Sputum Culture - Final Sputum 01/13/18 02:23 Legionella Antigen - Final Urine,Clean Catch 01/12/18 02:23 Streptococcus pneumoniae Antigen (M - Final Urine,Clean Catch Serology 01/12/18 Range/Units 00:16 Chlamy pneumoniae PCR Not Detected (Not Detect) Adenovirus (PCR) Not Detected (Not Detect) B. pertussis DNA (PCR) Not Detected (Not Detect) B.parapertussis DNA PCR Not Detected (Not Detect) Coronavirus OC43 (PCR) Not Detected (Not Detect) Coronavirus HKU1 (PCR) Not Detected (Not Detect) Coronavirus 229E (PCR) Not Detected (Not Detect) Coronavirus NL63 (PCR) Not Detected (Not Detect) Human Metapneumovir PCR Not Detected (Not Detect) Influenza A (H1) PCR Not Detected (Not Detect) Influ A (H1N1/09) PCR Not Detected (Not Detect) Influenza A (H3) PCR Not Detected (Not Detect) Influenza A Untype (PCR) Not Detected (Not Detect) Influenza Type B (PCR) Not Detected (Not Detect) M.pneumoniae DNA (PCR) Not Detected (Not Detect) Parainfluenza 1 (PCR) Not Detected (Not Detect) Parainfluenza 2 (PCR) Not Detected (Not Detect) Parainfluenza 3 (PCR) Not Detected (Not Detect) Parainfluenza 4 (PCR) Not Detected (Not Detect) RSV (PCR) Not Detected (Not Detect) Entero/Rhino (PCR) Not Detected (Not Detect) - Impressions Impressions Abdomen/Pelvis CT 01/15/18 13:45 IMPRESSION: 1. Minimal bibasilar atelectasis has nearly resolved compared to previous study. No other discrete CT chest, abdomen or pelvis finding to suggest origin for the patient's fever. 2. Emphysema. 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 Surveillance CT imaging is recommended in 5 years, per the recommendations below*. 4. Mild hepatic steatosis. ____ * Managing Abdominal Aortic Aneurysms 2.6-2.9 cm: Every 5 years* 3.0-3.4 cm: Every 3 years. 3.5-3.9 cm: Every 1 year. 4.0-4.4 cm: Every 1 year. Recommend vascular consultation. 4.5-5.4 cm: Every 6 months. Recommend vascular consultation. Greater than or equal to 5.5 cm: Referral to vascular surgeon. *For abdominal aortas with maximum diameter of 2.6-2.9 cm meeting criteria for AAA (>50% of proximal normal segment). Reference: J Vasc Surg. 2008;50(4 Suppl):S2-49 D/ / Riccardo Rodriguez / Riccardo Rodriguez Interpreting Provider: Riccardo Rodriguez Chest CT 01/15/18 13:45 IMPRESSION: 1. Minimal bibasilar atelectasis has nearly resolved compared to previous study. No other discrete CT chest, abdomen or pelvis finding to suggest origin for the patient's fever. 2. Emphysema. 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 Surveillance CT imaging is recommended in 5 years, per the recommendations below*. 4. Mild hepatic steatosis. ____ * Managing Abdominal Aortic Aneurysms 2.6-2.9 cm: Every 5 years* 3.0-3.4 cm: Every 3 years. 3.5-3.9 cm: Every 1 year. 4.0-4.4 cm: Every 1 year. Recommend vascular consultation. 4.5-5.4 cm: Every 6 months. Recommend vascular consultation. Greater than or equal to 5.5 cm: Referral to vascular surgeon. *For abdominal aortas with maximum diameter of 2.6-2.9 cm meeting criteria for AAA (>50% of proximal normal segment). Reference: J Vasc Surg. 2009 Jul;50(4 Suppl):S2-49 D/ / Riccardo Rodriguez / Riccardo Rodriguez Interpreting Provider: Riccardo Rodriguez Exam - Constitutional Vitals: Temp Pulse Resp BP Pulse Ox 97.8 F 93 16 160/86 94 01/16/18 07:18 01/16/18 07:18 01/16/18 07:18 01/16/18 07:18 01/16/18 08:14 Exam: General: Patient alert, awake, oriented 3, interactive, in no acute distress HEENT: Normocephalic, atraumatic, pupils equal reactive to light, nasal cavity patent and open septum median position, oral mucosa moist, upper and lower dentures, neck supple trachea midline no palpable lymphadenopathy, no thyromegaly. Chest: Symmetric bilateral correlating with respiratory effort, effort nonlabored. Cardiac: Regular rate and rhythm, positive S1 and S2. no bruits appreciated bilateral carotids, Radial pulses 2+ bilateral, posterior tibial and dorsal pedal pulses 2+ bilateral. Respiratory: Diffusely diminished inspiratory and expiratory breath sounds with diffuse wheezing. Abdomen: Soft, nontender, positive bowel sounds, no palpable masses appreciated on examination Extremities: Symmetric bilateral, bilateral lower extremities without erythema or edema patient moving all 4 extremities spontaneously. Neurologic: No focal deficits appreciated on examination. Face symmetric, muscle strength symmetric bilateral upper and lower extremities. - VTE Documentation of Mechanical Device: Intermittent pneumatic compression device Consult Discharge Plan - Plan Instructions: Chest Pain (DC), Acute Respiratory Distress Syndrome (DC), Chronic Obstructive Pulmonary Disease (DC), Sepsis (DC), Pneumonia (DC) Additional Instructions: Please take prescribed prednisone taper (40 mg x 3 days, then 30 mg x 3 days, followed by 20 mg x 3 days and finally 10 mg x 3 days. Please follow up with your primary care physician within a week regarding your hospitalization and finding of ascending aorta aneurysm. Referrals: All Odell DO [Primary Care Provider] - 01/15/18 9:30 am (Within a week) Prescriptions: Metoprolol [Lopressor] 12.5 mg PO BID #30 tablet Omeprazole [PriLOSEC] 40 mg PO DAILY@0630 #30 capsule. predniSONE [PredniSONE] See Taper PO DAILY #30 tablet - Attending Attestation I examined this patient and my medical decision-making was reviewed with the Resident Physician. I agree with the documented findings, disposition and treatment plan as described except to the extent set forth below.
[2018-01-16] MEDS ORDERED: predniSONE 20 MG TABLET PO SCH (09:00)
[2018-01-16 11:40] VITALS: BP 159/95
--- NOTE | 2018-01-17 13:15 | Electrocardiograph Report ---
[place] [id number] Test Date: 2018-01-15 Pat Name: Barrett Pacheco Department: 111 Room: 2NE21 Gender: M Cook Dessert: TAMRA : 1940 Requested By: Maurizio Hyde Order Number: [id number] [place] MD: Katelyn Lemons Measurements Intervals [place] Rate: 111 P: 36 IN: 137 QRS: 254 QRSD: 137 T: 76 QT: 351 QTc: 417 Interpretive Statements SINUS TACHYCARDIA WITH FREQUENT SUPRAVENTRICULAR PREMATURE COMPLEXES RIGHT BUNDLE BRANCH BLOCK BASELINE ARTIFACT Electronically Signed On 01-17-2018 13:14:12 EDT by Katelyn Lemons
== END 2018-01-16 15:58 | disposition home or self-care (01) | DRG 177 ==
LOC: EMEROO 14:55 → 2NENU 14:55 → SUATTDRO 20:56 → 2NENU 21:10
PROVIDERS: ADMIT Internal Medicine; ATTEND Internal Medicine

== ENCOUNTER 2020-05-25 15:58 | Inpatient (IN) ==
[2020-05-25] MEDS ORDERED: methylPREDNISolone 125 MG/2 ML VIAL IVP ONE (16:18)
[2020-05-25] MEDS ORDERED: Ipratropium/Albuterol Neb 3 ML IH ONE (16:18)
[2020-05-25] MEDS ORDERED: 0.9 % Sodium Chloride 1,000 ML IVC ONE (16:38)
[2020-05-25 16:40] LABS: Basophils # 0.1 K/mcL (0.0-0.2); Basophils % 0.4 %; Eosinophils # 0.1 K/mcL (0.0-0.6); Eosinophils % 0.4 %; Hematocrit 48.2 % (37.5-50.1); Hemoglobin 15.7 g/dL (12.9-16.9); Immature Granulocytes % 0.5 % (0-4); Lymphocytes # 1.4 K/mcL (0.6-4.6); Lymphocytes % 10.1 %; Mean Corpuscular HGB Conc 32.6 g/dL (31.6-35.5); Mean Corpuscular Hemoglobin 30.1 pg (28.0-33.3); Mean Corpuscular Volume 92.5 fL (83.0-100.0); Mean Platelet Volume 9.5 fL (9.4-12.4); Monocytes # 1.2 K/mcL (0.0-1.3); Monocytes % 8.5 %; Neutrophils # 11.1 K/mcL (1.6-8.9); Platelet Count 320 K/mcL (140-400); Red Blood Count 5.21 M/mcL (4.19-5.50); Red Cell Distribution Width 12.9 % (11.5-14.5); Segmented Neutrophils % 80.1 %; White Blood Count 13.8 K/mcL (4.3-11.1)
[2020-05-25] MEDS ORDERED: Azithromycin 500 MG in D5% in Water 250 ML IVPB ONE (16:55)
[2020-05-25] MEDS ORDERED: cefTRIAXone 1,000 MG in Water for inj. (sterile) 10 ML IVP ONE (16:55)
[2020-05-25 16:58] LABS: Alanine Aminotransferase 14 Units/L (7-52); Albumin 4.3 g/dL (3.5-5.7); Albumin/Globulin Ratio 1.5 (1.1-2.2); Alkaline Phosphatase 60 Units/L (34-104); Aspartate Amino Transferase 22 Units/L (13-39); BUN/Creatinine Ratio 21 (6-26); Bilirubin,Direct 0.1 mg/dL (0.0-0.2); Bilirubin,Indirect 0.4 mg/dL (0.0-1.0); Bilirubin,Total 0.5 mg/dL (0.3-1.0); Blood Urea Nitrogen 20 mg/dL (8-23); Calcium 10.2 mg/dL (8.6-10.3); Carbon Dioxide 35 mEq/L (23-29); Chloride 92 mEq/L (98-107); Globulin 2.9 g/dL (2.4-3.5); Glucose 164 mg/dL (70-105); Osmolality,Calculated 290 (280-300); Potassium 3.4 mEq/L (3.5-5.1); Sodium 137 mEq/L (136-145); Total Protein 7.2 g/dL (6.4-8.9); Troponin I 0.03 ng/mL (< 0.04); eGFR For African Americans > 60 (> 60); eGFR For Non-African Americans > 60 (> 60)
[2020-05-25] MEDS ORDERED: Isovue-370 500 ML BOTTLE IVP ONE (17:02)
[2020-05-25 18:30] LABS: Adenovirus Not Detected (Not Detect); Coronavirus 229E Not Detected (Not Detect); Coronavirus HKU1 Not Detected (Not Detect); Coronavirus NL63 Not Detected (Not Detect); Coronavirus OC43 Not Detected (Not Detect); Human Metapneumovirus Not Detected (Not Detect); Human Rhinovirus/Enterovirus Not Detected (Not Detect); Influenza A Subtype 2009 H1 Not Detected (Not Detect); Influenza B Not Detected (Not Detect); SARS-CoV-2 Not Detected (Not Detect)
[2020-05-25 18:31] LABS: Bordetella Pertussis Not Detected (Not Detect); Chlamydophila pneumoniae Not Detected (Not Detect); Mycoplasma pneumoniae Not Detected (Not Detect); Parainfluenza Virus 1 Not Detected (Not Detect); Parainfluenza Virus 2 Not Detected (Not Detect); Parainfluenza Virus 3 Not Detected (Not Detect); Parainfluenza Virus 4 Not Detected (Not Detect); Respiratory Syncytial Virus Not Detected (Not Detect)
[2020-05-25] MEDS ORDERED: Naloxone 0.4 MG/ML INJ IVP PRN (19:27)
[2020-05-25 19:39] LABS: Bilirubin,Urine Negative (Negative); Blood,Urine Negative (Negative); Clarity,Urine Clear (Clear); Color,Urine Light-Yellow (Yellow); Glucose,Urine (UA) Normal (Normal); Ketones,Urine Negative (Negative); Leukocyte Esterase,Urine Negative (Negative); Nitrite,Urine Negative (Negative); Protein,Urine Trace mg/dL (Neg-Trace); Specific Gravity,Urine > 1.030 (1.010-1.025); Urobilinogen,Urine Normal (Normal)
[2020-05-25 20:15] LABS: Magnesium 2.3 mg/dL (1.6-2.6)
[2020-05-25 20:50] LABS: ABG Base Excess 8 mEq/L (-2 to 3); ABG HCO3 33 mEq/L (21-27); ABG Oxygen Saturation 96 % (95-98); ABG PCO2 48 mmHg (35-45); ABG PH 7.44 pH Units (7.32-7.45); ABG PO2 77 mmHg (85-104); ABG TCO2 35 mEq/L (20-26)
[2020-05-25] MEDS ORDERED: Ipratropium/Albuterol Neb 3 ML IH SCH (22:00)
[2020-05-25] MEDS: Ipratropium/Albuterol Neb 3 ML IH SCH (23:22)
[2020-05-26] MEDS: MethylPREDNISolone 40 MG/ML VIAL IVP SCH ×4 (00:23→23:24)
[2020-05-26 00:37] LABS: Basophils % 0.1 %; Hematocrit 42.8 % (37.5-50.1); Hemoglobin 13.7 g/dL (12.9-16.9); Immature Granulocytes % 0.4 % (0-4); Lymphocytes # 0.3 K/mcL (0.6-4.6); Lymphocytes % 2.2 %; Mean Corpuscular Volume 93.9 fL (83.0-100.0); Mean Platelet Volume 9.4 fL (9.4-12.4); Monocytes # 0.1 K/mcL (0.0-1.3); Monocytes % 0.5 %; Neutrophils # 11.9 K/mcL (1.6-8.9); Platelet Count 255 K/mcL (140-400); Red Blood Count 4.56 M/mcL (4.19-5.50); Segmented Neutrophils % 96.8 %; White Blood Count 12.3 K/mcL (4.3-11.1)
[2020-05-26 00:56] LABS: BUN/Creatinine Ratio 27 (6-26); Blood Urea Nitrogen 21 mg/dL (8-23); Calcium 8.9 mg/dL (8.6-10.3); Carbon Dioxide 28 mEq/L (23-29); Chloride 96 mEq/L (98-107); Glucose 205 mg/dL (70-105); Osmolality,Calculated 287 (280-300); Sodium 134 mEq/L (136-145); eGFR For African Americans > 60 (> 60); eGFR For Non-African Americans > 60 (> 60)
[2020-05-26] MEDS ORDERED: *HR* Promethazine 25 MG/ML VIAL IVP PRN (01:28)
[2020-05-26] MEDS ORDERED: Acetaminophen 325 MG TABLET PO PRN (01:28)
[2020-05-26] MEDS: Ipratropium/Albuterol Neb 3 ML IH SCH ×6 (03:26→23:22)
[2020-05-26 05:18] LABS: INR 1.1
[2020-05-26 08:25] LABS: Estimated Average Glucose 128 mg/dl
[2020-05-26] MEDS ORDERED: 0.9 % Sodium Chloride 1,000 ML IVC SCH (09:00)
[2020-05-26] MEDS ORDERED: Pantoprazole 40 MG VIAL IVP SCH (09:00)
[2020-05-26] MEDS ORDERED: hydroCHLOROthiazide 25 MG TABLET PO SCH (09:00)
[2020-05-26] MEDS: Aspirin Enteric Coated 81 MG Tablet PO SCH (09:09)
[2020-05-26] MEDS: Cholecalciferol (D-3) 1,000 UNIT (25MCG) TABLET PO SCH (09:09)
[2020-05-26] MEDS: Cyanocobalamin (B-12) 1,000 MCG TABLET PO SCH (09:10)
[2020-05-26] MEDS: allopurinoL 100 MG TABLET PO SCH (09:10)
[2020-05-26] MEDS: Azithromycin 250 MG TABLET PO SCH (09:14)
[2020-05-26] MEDS ORDERED: Tiotropium 18 MCG inhalation IH SCH (10:00)
[2020-05-26] MEDS: cefTRIAXone 1,000 MG in Water for inj. (sterile) 10 ML IVP SCH (11:30)
[2020-05-26 15:13] LABS: Total Protein,Pleural Fluid 3.6 g/dL
[2020-05-26 16:52] LABS: Appearance of Pleural Fl Cloudy (Clear)
[2020-05-26 16:56] LABS: RBC,Pleural Fluid 21000 RBC/mcL
[2020-05-26 20:32] LABS: Hematocrit 37.1 % (37.5-50.1); Hemoglobin 12.3 g/dL (12.9-16.9); Mean Corpuscular HGB Conc 33.2 g/dL (31.6-35.5); Mean Corpuscular Hemoglobin 31.3 pg (28.0-33.3); Mean Corpuscular Volume 94.4 fL (83.0-100.0); Mean Platelet Volume 9.3 fL (9.4-12.4); Platelet Count 223 K/mcL (140-400); Red Blood Count 3.93 M/mcL (4.19-5.50); Red Cell Distribution Width 12.8 % (11.5-14.5); White Blood Count 15.3 K/mcL (4.3-11.1)
[2020-05-26] MEDS ORDERED: 0.9 % Sodium Chloride 1,000 ML IVC ONE (21:13)
[2020-05-27 01:37] LABS: Basophils % 0.1 %; Hematocrit 37.4 % (37.5-50.1); Immature Granulocytes % 0.5 % (0-4); Lymphocytes # 0.4 K/mcL (0.6-4.6); Lymphocytes % 2.9 %; Mean Corpuscular HGB Conc 31.8 g/dL (31.6-35.5); Mean Corpuscular Hemoglobin 29.8 pg (28.0-33.3); Mean Corpuscular Volume 93.7 fL (83.0-100.0); Mean Platelet Volume 9.3 fL (9.4-12.4); Monocytes # 0.7 K/mcL (0.0-1.3); Monocytes % 4.6 %; Neutrophils # 14.2 K/mcL (1.6-8.9); Platelet Count 230 K/mcL (140-400); Red Blood Count 3.99 M/mcL (4.19-5.50); Red Cell Distribution Width 12.9 % (11.5-14.5); Segmented Neutrophils % 91.9 %; White Blood Count 15.4 K/mcL (4.3-11.1)
[2020-05-27 01:38] LABS: Hemoglobin 11.9 g/dL (12.9-16.9)
[2020-05-27 01:54] LABS: BUN/Creatinine Ratio 24 (6-26); Blood Urea Nitrogen 20 mg/dL (8-23); Calcium 8.2 mg/dL (8.6-10.3); Carbon Dioxide 30 mEq/L (23-29); Chloride 98 mEq/L (98-107); Glucose 168 mg/dL (70-105); Osmolality,Calculated 288 (280-300); Potassium 3.7 mEq/L (3.5-5.1); Sodium 136 mEq/L (136-145); eGFR For African Americans > 60 (> 60); eGFR For Non-African Americans > 60 (> 60)
[2020-05-27] MEDS: Ipratropium/Albuterol Neb 3 ML IH SCH ×6 (03:36→23:44)
[2020-05-27] MEDS: cefTRIAXone 1,000 MG in Water for inj. (sterile) 10 ML IVP SCH (08:12)
[2020-05-27] MEDS: Cholecalciferol (D-3) 1,000 UNIT (25MCG) TABLET PO SCH (08:13)
[2020-05-27] MEDS: MethylPREDNISolone 40 MG/ML VIAL IVP SCH ×3 (08:13→23:55)
[2020-05-27] MEDS: Azithromycin 250 MG TABLET PO SCH (08:13)
[2020-05-27] MEDS: Aspirin Enteric Coated 81 MG Tablet PO SCH (08:13)
[2020-05-27] MEDS: allopurinoL 100 MG TABLET PO SCH (08:13)
[2020-05-27] MEDS: Cyanocobalamin (B-12) 1,000 MCG TABLET PO SCH (08:13)
[2020-05-27] MEDS: *HR* Heparin 5,000 UNIT/ML VIAL SQ SCH ×2 (15:26→21:21)
[2020-05-28 01:49] LABS: Hematocrit 39.9 % (37.5-50.1); Hemoglobin 12.7 g/dL (12.9-16.9); Mean Corpuscular HGB Conc 31.8 g/dL (31.6-35.5); Mean Corpuscular Hemoglobin 30.2 pg (28.0-33.3); Mean Platelet Volume 9.6 fL (9.4-12.4); Platelet Count 237 K/mcL (140-400); Red Cell Distribution Width 12.9 % (11.5-14.5); White Blood Count 15.6 K/mcL (4.3-11.1)
[2020-05-28 01:59] LABS: Alanine Aminotransferase 14 Units/L (7-52); Albumin 3.5 g/dL (3.5-5.7); Albumin/Globulin Ratio 1.8 (1.1-2.2); Alkaline Phosphatase 41 Units/L (34-104); Aspartate Amino Transferase 17 Units/L (13-39); BUN/Creatinine Ratio 33 (6-26); Bilirubin,Total 0.3 mg/dL (0.3-1.0); Blood Urea Nitrogen 24 mg/dL (8-23); Calcium 8.7 mg/dL (8.6-10.3); Carbon Dioxide 30 mEq/L (23-29); Chloride 98 mEq/L (98-107); Glucose 148 mg/dL (70-105); Osmolality,Calculated 291 (280-300); Potassium 4.2 mEq/L (3.5-5.1); Sodium 137 mEq/L (136-145); Total Protein 5.5 g/dL (6.4-8.9); eGFR For African Americans > 60 (> 60); eGFR For Non-African Americans > 60 (> 60)
[2020-05-28] MEDS: Ipratropium/Albuterol Neb 3 ML IH SCH ×6 (03:56→23:26)
[2020-05-28] MEDS: *HR* Heparin 5,000 UNIT/ML VIAL SQ SCH ×3 (06:09→21:52)
[2020-05-28] MEDS: MethylPREDNISolone 40 MG/ML VIAL IVP SCH ×3 (08:15→23:28)
[2020-05-28] MEDS: Aspirin Enteric Coated 81 MG Tablet PO SCH (08:16)
[2020-05-28] MEDS: cefTRIAXone 1,000 MG in Water for inj. (sterile) 10 ML IVP SCH (08:16)
[2020-05-28] MEDS: Cholecalciferol (D-3) 1,000 UNIT (25MCG) TABLET PO SCH (08:16)
[2020-05-28] MEDS: allopurinoL 100 MG TABLET PO SCH (08:16)
[2020-05-28] MEDS: Azithromycin 250 MG TABLET PO SCH (08:16)
[2020-05-28] MEDS: Cyanocobalamin (B-12) 1,000 MCG TABLET PO SCH (08:16)
[2020-05-28] MEDS: Budesonide/Formoterol 160/4.5 1 PUFF INH IH SCH ×2 (15:53→19:47)
[2020-05-29 03:11] LABS: Hematocrit 39.9 % (37.5-50.1); Hemoglobin 12.7 g/dL (12.9-16.9); Mean Corpuscular HGB Conc 31.8 g/dL (31.6-35.5); Mean Corpuscular Hemoglobin 30.5 pg (28.0-33.3); Mean Corpuscular Volume 95.7 fL (83.0-100.0); Mean Platelet Volume 9.7 fL (9.4-12.4); Platelet Count 252 K/mcL (140-400); Red Blood Count 4.17 M/mcL (4.19-5.50); Red Cell Distribution Width 12.9 % (11.5-14.5); White Blood Count 15.5 K/mcL (4.3-11.1)
[2020-05-29 03:30] LABS: BUN/Creatinine Ratio 35 (6-26); Blood Urea Nitrogen 29 mg/dL (8-23); Carbon Dioxide 30 mEq/L (23-29); Chloride 97 mEq/L (98-107); Glucose 149 mg/dL (70-105); Osmolality,Calculated 293 (280-300); Potassium 4.3 mEq/L (3.5-5.1); Sodium 137 mEq/L (136-145); eGFR For African Americans > 60 (> 60); eGFR For Non-African Americans > 60 (> 60)
[2020-05-29] MEDS: Ipratropium/Albuterol Neb 3 ML IH SCH ×5 (03:34→20:06)
[2020-05-29] MEDS: *HR* Heparin 5,000 UNIT/ML VIAL SQ SCH ×3 (05:46→20:30)
[2020-05-29] MEDS: Budesonide/Formoterol 160/4.5 1 PUFF INH IH SCH ×2 (07:13→20:06)
[2020-05-29] MEDS: cefTRIAXone 1,000 MG in Water for inj. (sterile) 10 ML IVP SCH (07:38)
[2020-05-29] MEDS: MethylPREDNISolone 40 MG/ML VIAL IVP SCH (07:39)
[2020-05-29] MEDS: Cholecalciferol (D-3) 1,000 UNIT (25MCG) TABLET PO SCH (07:39)
[2020-05-29] MEDS: Aspirin Enteric Coated 81 MG Tablet PO SCH (07:39)
[2020-05-29] MEDS: allopurinoL 100 MG TABLET PO SCH (07:39)
[2020-05-29] MEDS: Cyanocobalamin (B-12) 1,000 MCG TABLET PO SCH (07:40)
[2020-05-29] MEDS: Azithromycin 250 MG TABLET PO SCH (07:40)
[2020-05-29] MEDS ORDERED: *HR* LORazepam 2 MG/ML VIAL IVP ONE (14:43)
[2020-05-29 18:38] LABS: ABG Base Excess 6 mEq/L (-2 to 3); ABG HCO3 34 mEq/L (21-27); ABG Oxygen Saturation 96 % (95-98); ABG PCO2 66 mmHg (35-45); ABG PH 7.32 pH Units (7.32-7.45); ABG PO2 93 mmHg (85-104); ABG TCO2 37 mEq/L (20-26)
[2020-05-29] MEDS ORDERED: Furosemide 40 MG/4 ML VIAL IVP ONE (18:40)
[2020-05-29 20:28] LABS: VBG HCO3 33 mEq/L (21-27); VBG PCO2 52 mmHg (41-51); VBG PO2 237 mmHg (25-50)
[2020-05-29] MEDS ORDERED: Haloperidol Lactate 5 MG/ML VIAL IVP ONE (21:14)
[2020-05-29] MEDS ORDERED: *HR* Promethazine 25 MG/ML VIAL IVP ONE (21:40)
[2020-05-30] MEDS ORDERED: Haloperidol Lactate 5 MG/ML VIAL IVP ONE (00:18)
[2020-05-30] MEDS: Ipratropium/Albuterol Neb 3 ML IH SCH ×7 (00:25→20:34)
[2020-05-30] MEDS: *HR* Heparin 5,000 UNIT/ML VIAL SQ SCH ×3 (01:55→19:49)
[2020-05-30 05:26] LABS: Hematocrit 40.2 % (37.5-50.1); Hemoglobin 12.7 g/dL (12.9-16.9); Mean Corpuscular HGB Conc 31.6 g/dL (31.6-35.5); Mean Corpuscular Hemoglobin 30.2 pg (28.0-33.3); Mean Corpuscular Volume 95.5 fL (83.0-100.0); Mean Platelet Volume 9.6 fL (9.4-12.4); Platelet Count 228 K/mcL (140-400); Red Blood Count 4.21 M/mcL (4.19-5.50); White Blood Count 15.3 K/mcL (4.3-11.1)
[2020-05-30 05:32] LABS: Prothrombin Time 11.9 Seconds (9.4-12.1)
[2020-05-30 05:39] LABS: BUN/Creatinine Ratio 38 (6-26); Blood Urea Nitrogen 33 mg/dL (8-23); Calcium 8.8 mg/dL (8.6-10.3); Carbon Dioxide 36 mEq/L (23-29); Chloride 98 mEq/L (98-107); Glucose 92 mg/dL (70-105); Osmolality,Calculated 297 (280-300); Potassium 4.2 mEq/L (3.5-5.1); Sodium 140 mEq/L (136-145); eGFR For African Americans > 60 (> 60); eGFR For Non-African Americans > 60 (> 60)
[2020-05-30 06:17] LABS: VBG HCO3 38 mEq/L (21-27); VBG PCO2 68 mmHg (41-51); VBG PH 7.36 pH Units (7.32-7.42); VBG PO2 71 mmHg (25-50)
[2020-05-30 06:30] LABS: Magnesium 2.6 mg/dL (1.6-2.6)
[2020-05-30] MEDS: Budesonide/Formoterol 160/4.5 1 PUFF INH IH SCH ×2 (07:28→20:34)
[2020-05-30] MEDS: cefTRIAXone 1,000 MG in Water for inj. (sterile) 10 ML IVP SCH (08:24)
[2020-05-30] MEDS ORDERED: Ondansetron 4 MG/2 ML VIAL ONE (08:59)
[2020-05-30] MEDS ORDERED: *HR* FentaNYL (PF) 100 MCG/2 ML VIAL ONE (08:59)
[2020-05-30] MEDS ORDERED: Dexamethasone 4 MG/ML VIAL ONE (08:59)
[2020-05-30] MEDS ORDERED: Lidocaine -MPF 2% 2 ML VIAL ONE (08:59)
[2020-05-30] MEDS ORDERED: *HR* Propofol 200 MG/20 ML VIAL IVP ONE (08:59)
[2020-05-30] MEDS ORDERED: Lidocaine -MPF 4% 5 ML AMPUL ONE (08:59)
[2020-05-30] MEDS: Cholecalciferol (D-3) 1,000 UNIT (25MCG) TABLET PO SCH (09:26)
[2020-05-30] MEDS: Aspirin Enteric Coated 81 MG Tablet PO SCH (09:26)
[2020-05-30] MEDS: Cyanocobalamin (B-12) 1,000 MCG TABLET PO SCH (09:26)
[2020-05-30] MEDS: allopurinoL 100 MG TABLET PO SCH (09:26)
[2020-05-30] MEDS: predniSONE 20 MG TABLET PO SCH (09:26)
[2020-05-30 10:31] LABS: VBG HCO3 34 mEq/L (21-27); VBG PCO2 41 mmHg (41-51); VBG PH 7.53 pH Units (7.32-7.42); VBG PO2 230 mmHg (25-50)
[2020-05-30 14:35] LABS: Lactate Dehydrogenase 204 Units/L (140-271); Total Protein 5.7 g/dL (6.4-8.9)
[2020-05-30] MEDS: Sennosides 8.6 MG TABLET PO SCH (15:31)
[2020-05-30 15:41] LABS: LDH,Pleural Fluid 471 Units/L (No Ref Range); Total Protein,Pleural Fluid < 3.0 g/dL
[2020-05-30 17:30] LABS: RBC,Pleural Fluid 8000 RBC/mcL
[2020-05-30 18:57] LABS: Appearance of Pleural Fl Cloudy (Clear); Basophils,Pleural Fluid 0 %; Eosinophils,Pleural Fluid 0 %; Monocytes,Pleural Fluid 0 %
[2020-05-31] MEDS: Ipratropium/Albuterol Neb 3 ML IH SCH ×8 (00:07→23:41)
[2020-05-31 05:18] LABS: VBG HCO3 38 mEq/L (21-27); VBG PCO2 66 mmHg (41-51); VBG PH 7.37 pH Units (7.32-7.42); VBG PO2 57 mmHg (25-50)
[2020-05-31 05:19] LABS: Hemoglobin 13.5 g/dL (12.9-16.9); Mean Corpuscular HGB Conc 32.1 g/dL (31.6-35.5); Mean Corpuscular Hemoglobin 30.8 pg (28.0-33.3); Mean Corpuscular Volume 95.7 fL (83.0-100.0); Mean Platelet Volume 9.5 fL (9.4-12.4); Platelet Count 235 K/mcL (140-400); Red Blood Count 4.39 M/mcL (4.19-5.50); White Blood Count 13.1 K/mcL (4.3-11.1)
[2020-05-31] MEDS: *HR* Heparin 5,000 UNIT/ML VIAL SQ SCH ×3 (05:21→22:23)
[2020-05-31 05:38] LABS: BUN/Creatinine Ratio 36 (6-26); Blood Urea Nitrogen 28 mg/dL (8-23); Calcium 8.8 mg/dL (8.6-10.3); Carbon Dioxide 39 mEq/L (23-29); Chloride 96 mEq/L (98-107); Glucose 120 mg/dL (70-105); Osmolality,Calculated 295 (280-300); Sodium 139 mEq/L (136-145); eGFR For African Americans > 60 (> 60); eGFR For Non-African Americans > 60 (> 60)
[2020-05-31] MEDS ORDERED: Lidocaine -MPF 4% 5 ML AMPUL ONE (07:15)
[2020-05-31] MEDS ORDERED: *HR* Succinylcholine 200 MG/10 ML VIAL IVP ONE (07:18)
[2020-05-31] MEDS: Aspirin Enteric Coated 81 MG Tablet PO SCH (07:18)
[2020-05-31] MEDS: Cyanocobalamin (B-12) 1,000 MCG TABLET PO SCH (07:18)
[2020-05-31] MEDS: allopurinoL 100 MG TABLET PO SCH (07:18)
[2020-05-31] MEDS: predniSONE 20 MG TABLET PO SCH (07:18)
[2020-05-31] MEDS: Cholecalciferol (D-3) 1,000 UNIT (25MCG) TABLET PO SCH (07:18)
[2020-05-31] MEDS: Sennosides 8.6 MG TABLET PO SCH (07:20)
[2020-05-31] MEDS ORDERED: Ondansetron 4 MG/2 ML VIAL ONE (07:20)
[2020-05-31] MEDS ORDERED: Lidocaine -MPF 2% 2 ML VIAL ONE (07:20)
[2020-05-31] MEDS ORDERED: Dexamethasone 4 MG/ML VIAL ONE (07:20)
[2020-05-31] MEDS ORDERED: *HR* FentaNYL (PF) 100 MCG/2 ML VIAL ONE (07:21)
[2020-05-31] MEDS ORDERED: *HR* Propofol 200 MG/20 ML VIAL IVP ONE (07:22)
[2020-05-31] MEDS: Budesonide/Formoterol 160/4.5 1 PUFF INH IH SCH ×2 (08:01→19:56)
[2020-05-31] MEDS ORDERED: *HR* PHENYLEPHRINE 1,000 MCG/10 ML SYRINGE IVP ONE (08:02)
[2020-05-31] MEDS ORDERED: Ondansetron 4 MG/2 ML VIAL IVP ONE (08:27)
[2020-05-31] MEDS ORDERED: Ringers Solution, Lactated 1,000 ML IVC SCH (08:30)
[2020-05-31 14:52] LABS: Appearance of Body Fluid Cloudy (Clear); Volume of Body Fluid 24 mL
[2020-06-01 01:52] LABS: Hematocrit 40.7 % (37.5-50.1); Hemoglobin 12.8 g/dL (12.9-16.9); Mean Corpuscular HGB Conc 31.4 g/dL (31.6-35.5); Mean Corpuscular Hemoglobin 30.4 pg (28.0-33.3); Mean Corpuscular Volume 96.7 fL (83.0-100.0); Mean Platelet Volume 10.2 fL (9.4-12.4); Platelet Count 232 K/mcL (140-400); Red Blood Count 4.21 M/mcL (4.19-5.50); Red Cell Distribution Width 12.9 % (11.5-14.5); White Blood Count 13.4 K/mcL (4.3-11.1)
[2020-06-01 02:11] LABS: BUN/Creatinine Ratio 29 (6-26); Blood Urea Nitrogen 21 mg/dL (8-23); Calcium 8.2 mg/dL (8.6-10.3); Carbon Dioxide 35 mEq/L (23-29); Chloride 97 mEq/L (98-107); Glucose 141 mg/dL (70-105); Osmolality,Calculated 293 (280-300); Potassium 4.2 mEq/L (3.5-5.1); Sodium 139 mEq/L (136-145); eGFR For African Americans > 60 (> 60); eGFR For Non-African Americans > 60 (> 60)
[2020-06-01] MEDS: Ipratropium/Albuterol Neb 3 ML IH SCH ×6 (03:25→23:34)
[2020-06-01] MEDS: *HR* Heparin 5,000 UNIT/ML VIAL SQ SCH ×3 (05:14→21:35)
[2020-06-01] MEDS: Sennosides 8.6 MG TABLET PO SCH (07:38)
[2020-06-01] MEDS: Aspirin Enteric Coated 81 MG Tablet PO SCH (07:38)
[2020-06-01] MEDS: predniSONE 20 MG TABLET PO SCH (07:38)
[2020-06-01] MEDS: allopurinoL 100 MG TABLET PO SCH (07:38)
[2020-06-01] MEDS: Cholecalciferol (D-3) 1,000 UNIT (25MCG) TABLET PO SCH (07:38)
[2020-06-01] MEDS: Cyanocobalamin (B-12) 1,000 MCG TABLET PO SCH (07:38)
[2020-06-01] MEDS: Budesonide/Formoterol 160/4.5 1 PUFF INH IH SCH ×2 (08:08→20:18)
[2020-06-02] MEDS: Ipratropium/Albuterol Neb 3 ML IH SCH ×6 (03:24→23:51)
[2020-06-02 03:45] LABS: Hematocrit 42.8 % (37.5-50.1); Hemoglobin 13.3 g/dL (12.9-16.9); Mean Corpuscular HGB Conc 31.1 g/dL (31.6-35.5); Mean Corpuscular Hemoglobin 29.6 pg (28.0-33.3); Mean Corpuscular Volume 95.3 fL (83.0-100.0); Mean Platelet Volume 9.6 fL (9.4-12.4); Platelet Count 251 K/mcL (140-400); Red Blood Count 4.49 M/mcL (4.19-5.50); Red Cell Distribution Width 12.9 % (11.5-14.5); White Blood Count 17.7 K/mcL (4.3-11.1)
[2020-06-02 03:58] LABS: VBG HCO3 35 mEq/L (21-27); VBG PCO2 60 mmHg (41-51); VBG PH 7.38 pH Units (7.32-7.42); VBG PO2 182 mmHg (25-50)
[2020-06-02 04:05] LABS: BUN/Creatinine Ratio 28 (6-26); Blood Urea Nitrogen 21 mg/dL (8-23); Calcium 8.3 mg/dL (8.6-10.3); Carbon Dioxide 34 mEq/L (23-29); Chloride 98 mEq/L (98-107); Glucose 118 mg/dL (70-105); Osmolality,Calculated 290 (280-300); Potassium 4.2 mEq/L (3.5-5.1); Sodium 138 mEq/L (136-145); eGFR For African Americans > 60 (> 60); eGFR For Non-African Americans > 60 (> 60)
[2020-06-02] MEDS: *HR* Heparin 5,000 UNIT/ML VIAL SQ SCH ×3 (05:39→21:48)
[2020-06-02] MEDS: Budesonide/Formoterol 160/4.5 1 PUFF INH IH SCH ×2 (07:44→20:37)
[2020-06-02] MEDS: Sennosides 8.6 MG TABLET PO SCH (07:59)
[2020-06-02] MEDS: predniSONE 20 MG TABLET PO SCH (07:59)
[2020-06-02] MEDS: Cholecalciferol (D-3) 1,000 UNIT (25MCG) TABLET PO SCH (07:59)
[2020-06-02] MEDS: Cyanocobalamin (B-12) 1,000 MCG TABLET PO SCH (07:59)
[2020-06-02] MEDS: Aspirin Enteric Coated 81 MG Tablet PO SCH (07:59)
[2020-06-02] MEDS: allopurinoL 100 MG TABLET PO SCH (07:59)
[2020-06-03 01:12] LABS: Hematocrit 42.3 % (37.5-50.1); Hemoglobin 13.5 g/dL (12.9-16.9); Mean Corpuscular HGB Conc 31.9 g/dL (31.6-35.5); Mean Corpuscular Hemoglobin 30.9 pg (28.0-33.3); Mean Corpuscular Volume 96.8 fL (83.0-100.0); Platelet Count 250 K/mcL (140-400); Red Blood Count 4.37 M/mcL (4.19-5.50)
[2020-06-03 01:30] LABS: BUN/Creatinine Ratio 39 (6-26); Blood Urea Nitrogen 24 mg/dL (8-23); Calcium 8.3 mg/dL (8.6-10.3); Carbon Dioxide 32 mEq/L (23-29); Chloride 99 mEq/L (98-107); Glucose 122 mg/dL (70-105); Osmolality,Calculated 291 (280-300); Potassium 4.3 mEq/L (3.5-5.1); Sodium 138 mEq/L (136-145); eGFR For African Americans > 60 (> 60); eGFR For Non-African Americans > 60 (> 60)
[2020-06-03] MEDS: Ipratropium/Albuterol Neb 3 ML IH SCH ×6 (03:46→23:55)
[2020-06-03] MEDS: *HR* Heparin 5,000 UNIT/ML VIAL SQ SCH ×3 (05:27→20:12)
[2020-06-03 06:09] LABS: Magnesium 2.4 mg/dL (1.6-2.6); Phosphorous 2.8 mg/dL (2.7-4.5)
[2020-06-03] MEDS: allopurinoL 100 MG TABLET PO SCH (07:18)
[2020-06-03] MEDS: Cholecalciferol (D-3) 1,000 UNIT (25MCG) TABLET PO SCH (07:18)
[2020-06-03] MEDS: Cyanocobalamin (B-12) 1,000 MCG TABLET PO SCH (07:18)
[2020-06-03] MEDS: Aspirin Enteric Coated 81 MG Tablet PO SCH (07:18)
[2020-06-03] MEDS: Sennosides 8.6 MG TABLET PO SCH (07:18)
[2020-06-03] MEDS: predniSONE 20 MG TABLET PO SCH (07:18)
[2020-06-03] MEDS: Budesonide/Formoterol 160/4.5 1 PUFF INH IH SCH ×2 (11:30→19:54)
[2020-06-03] MEDS ORDERED: *HR* LORazepam 0.5 MG TABLET PO ONE (21:59)
[2020-06-04] MEDS: Ipratropium/Albuterol Neb 3 ML IH SCH ×5 (03:55→20:09)
[2020-06-04] MEDS: *HR* Heparin 5,000 UNIT/ML VIAL SQ SCH ×3 (06:19→21:25)
[2020-06-04] MEDS: Budesonide/Formoterol 160/4.5 1 PUFF INH IH SCH ×2 (07:27→20:10)
[2020-06-04] MEDS: predniSONE 20 MG TABLET PO SCH (07:42)
[2020-06-04] MEDS: Aspirin Enteric Coated 81 MG Tablet PO SCH (07:42)
[2020-06-04] MEDS: Sennosides 8.6 MG TABLET PO SCH (07:43)
[2020-06-04] MEDS: allopurinoL 100 MG TABLET PO SCH (07:43)
[2020-06-04] MEDS: Cholecalciferol (D-3) 1,000 UNIT (25MCG) TABLET PO SCH (07:43)
[2020-06-04] MEDS: Cyanocobalamin (B-12) 1,000 MCG TABLET PO SCH (07:43)
[2020-06-05 02:24] LABS: Basophils # 0.1 K/mcL (0.0-0.2); Basophils % 0.7 %; Eosinophils # 0.1 K/mcL (0.0-0.6); Eosinophils % 0.5 %; Hematocrit 39.2 % (37.5-50.1); Hemoglobin 12.4 g/dL (12.9-16.9); Immature Granulocytes % 3.9 % (0-4); Lymphocytes # 0.9 K/mcL (0.6-4.6); Lymphocytes % 5.2 %; Mean Corpuscular HGB Conc 31.6 g/dL (31.6-35.5); Mean Corpuscular Hemoglobin 30.7 pg (28.0-33.3); Mean Platelet Volume 9.5 fL (9.4-12.4); Monocytes # 1.6 K/mcL (0.0-1.3); Monocytes % 9.5 %; Neutrophils # 13.1 K/mcL (1.6-8.9); Platelet Count 250 K/mcL (140-400); Red Blood Count 4.04 M/mcL (4.19-5.50); Red Cell Distribution Width 12.9 % (11.5-14.5); Segmented Neutrophils % 80.2 %; White Blood Count 16.4 K/mcL (4.3-11.1)
[2020-06-05 02:43] LABS: BUN/Creatinine Ratio 36 (6-26); Blood Urea Nitrogen 26 mg/dL (8-23); Calcium 8.4 mg/dL (8.6-10.3); Carbon Dioxide 36 mEq/L (23-29); Chloride 99 mEq/L (98-107); Glucose 115 mg/dL (70-105); Osmolality,Calculated 298 (280-300); Potassium 4.2 mEq/L (3.5-5.1); Sodium 141 mEq/L (136-145); eGFR For African Americans > 60 (> 60); eGFR For Non-African Americans > 60 (> 60)
[2020-06-05] MEDS: Ipratropium/Albuterol Neb 3 ML IH SCH ×7 (03:48→23:17)
[2020-06-05] MEDS: *HR* Heparin 5,000 UNIT/ML VIAL SQ SCH ×3 (06:11→20:29)
[2020-06-05] MEDS: Budesonide/Formoterol 160/4.5 1 PUFF INH IH SCH ×2 (07:32→19:46)
[2020-06-05] MEDS: Cholecalciferol (D-3) 1,000 UNIT (25MCG) TABLET PO SCH (08:45)
[2020-06-05] MEDS: Sennosides 8.6 MG TABLET PO SCH (08:45)
[2020-06-05] MEDS: Cyanocobalamin (B-12) 1,000 MCG TABLET PO SCH (08:46)
[2020-06-05] MEDS: Aspirin Enteric Coated 81 MG Tablet PO SCH (08:46)
[2020-06-05] MEDS: allopurinoL 100 MG TABLET PO SCH (08:46)
[2020-06-05] MEDS: predniSONE 20 MG TABLET PO SCH (08:46)
[2020-06-06 00:53] LABS: Basophils # 0.1 K/mcL (0.0-0.2); Basophils % 0.8 %; Eosinophils % 0.1 %; Hematocrit 40.9 % (37.5-50.1); Hemoglobin 13.1 g/dL (12.9-16.9); Lymphocytes # 0.8 K/mcL (0.6-4.6); Lymphocytes % 4.8 %; Mean Corpuscular Hemoglobin 30.5 pg (28.0-33.3); Mean Corpuscular Volume 95.1 fL (83.0-100.0); Mean Platelet Volume 9.4 fL (9.4-12.4); Monocytes # 1.2 K/mcL (0.0-1.3); Monocytes % 7.1 %; Neutrophils # 13.7 K/mcL (1.6-8.9); Platelet Count 252 K/mcL (140-400); Segmented Neutrophils % 83.2 %; White Blood Count 16.4 K/mcL (4.3-11.1)
[2020-06-06 01:14] LABS: BUN/Creatinine Ratio 28 (6-26); Blood Urea Nitrogen 19 mg/dL (8-23); Calcium 8.5 mg/dL (8.6-10.3); Carbon Dioxide 34 mEq/L (23-29); Chloride 97 mEq/L (98-107); Glucose 116 mg/dL (70-105); Osmolality,Calculated 287 (280-300); Potassium 4.3 mEq/L (3.5-5.1); Sodium 137 mEq/L (136-145); eGFR For African Americans > 60 (> 60); eGFR For Non-African Americans > 60 (> 60)
[2020-06-06] MEDS: Ipratropium/Albuterol Neb 3 ML IH SCH ×6 (03:28→23:58)
[2020-06-06] MEDS: *HR* Heparin 5,000 UNIT/ML VIAL SQ SCH ×3 (04:53→21:24)
[2020-06-06] MEDS: Budesonide/Formoterol 160/4.5 1 PUFF INH IH SCH ×2 (07:39→19:57)
[2020-06-06] MEDS: Aspirin Enteric Coated 81 MG Tablet PO SCH (08:14)
[2020-06-06] MEDS: predniSONE 20 MG TABLET PO SCH (08:14)
[2020-06-06] MEDS: Cyanocobalamin (B-12) 1,000 MCG TABLET PO SCH (08:15)
[2020-06-06] MEDS: Cholecalciferol (D-3) 1,000 UNIT (25MCG) TABLET PO SCH (08:15)
[2020-06-06] MEDS: allopurinoL 100 MG TABLET PO SCH (08:15)
[2020-06-06] MEDS: Sennosides 8.6 MG TABLET PO SCH (08:15)
[2020-06-06] MEDS ORDERED: Gadolinium Contrast Agent (WT Based) IV PRN (08:43)
[2020-06-07 01:35] LABS: Basophils # 0.1 K/mcL (0.0-0.2); Basophils % 0.6 %; Eosinophils % 0.2 %; Hematocrit 39.6 % (37.5-50.1); Hemoglobin 12.7 g/dL (12.9-16.9); Immature Granulocytes % 2.9 % (0-4); Lymphocytes # 0.9 K/mcL (0.6-4.6); Lymphocytes % 5.7 %; Mean Corpuscular HGB Conc 32.1 g/dL (31.6-35.5); Mean Corpuscular Hemoglobin 30.8 pg (28.0-33.3); Mean Corpuscular Volume 96.1 fL (83.0-100.0); Mean Platelet Volume 9.5 fL (9.4-12.4); Monocytes % 6.5 %; Neutrophils # 13.1 K/mcL (1.6-8.9); Platelet Count 257 K/mcL (140-400); Red Blood Count 4.12 M/mcL (4.19-5.50); Segmented Neutrophils % 84.1 %; White Blood Count 15.6 K/mcL (4.3-11.1)
[2020-06-07 01:47] LABS: BUN/Creatinine Ratio 23 (6-26); Blood Urea Nitrogen 18 mg/dL (8-23); Calcium 8.3 mg/dL (8.6-10.3); Carbon Dioxide 34 mEq/L (23-29); Chloride 98 mEq/L (98-107); Glucose 166 mg/dL (70-105); Osmolality,Calculated 292 (280-300); Potassium 4.4 mEq/L (3.5-5.1); Sodium 138 mEq/L (136-145); eGFR For African Americans > 60 (> 60); eGFR For Non-African Americans > 60 (> 60)
[2020-06-07] MEDS: Ipratropium/Albuterol Neb 3 ML IH SCH ×6 (03:53→23:49)
[2020-06-07] MEDS: *HR* Heparin 5,000 UNIT/ML VIAL SQ SCH ×3 (04:34→21:56)
[2020-06-07] MEDS: Budesonide/Formoterol 160/4.5 1 PUFF INH IH SCH ×2 (07:28→19:56)
[2020-06-07] MEDS: Sennosides 8.6 MG TABLET PO SCH (08:35)
[2020-06-07] MEDS: predniSONE 20 MG TABLET PO SCH (08:35)
[2020-06-07] MEDS: Cholecalciferol (D-3) 1,000 UNIT (25MCG) TABLET PO SCH (08:35)
[2020-06-07] MEDS: Aspirin Enteric Coated 81 MG Tablet PO SCH (08:35)
[2020-06-07] MEDS: Cyanocobalamin (B-12) 1,000 MCG TABLET PO SCH (08:36)
[2020-06-07] MEDS: allopurinoL 100 MG TABLET PO SCH (08:36)
[2020-06-08] MEDS: Ipratropium/Albuterol Neb 3 ML IH SCH ×5 (03:31→19:51)
[2020-06-08 04:36] LABS: Basophils # 0.1 K/mcL (0.0-0.2); Basophils % 0.6 %; Eosinophils # 0.1 K/mcL (0.0-0.6); Eosinophils % 0.3 %; Hematocrit 40.7 % (37.5-50.1); Hemoglobin 13.2 g/dL (12.9-16.9); Immature Granulocytes % 2.3 % (0-4); Lymphocytes # 1.3 K/mcL (0.6-4.6); Lymphocytes % 6.6 %; Mean Corpuscular HGB Conc 32.4 g/dL (31.6-35.5); Mean Corpuscular Hemoglobin 30.9 pg (28.0-33.3); Mean Corpuscular Volume 95.3 fL (83.0-100.0); Mean Platelet Volume 9.9 fL (9.4-12.4); Monocytes # 1.3 K/mcL (0.0-1.3); Neutrophils # 15.8 K/mcL (1.6-8.9); Platelet Count 306 K/mcL (140-400); Red Blood Count 4.27 M/mcL (4.19-5.50); Red Cell Distribution Width 13.1 % (11.5-14.5); Segmented Neutrophils % 83.2 %
[2020-06-08 04:57] LABS: BUN/Creatinine Ratio 25 (6-26); Blood Urea Nitrogen 17 mg/dL (8-23); Calcium 8.7 mg/dL (8.6-10.3); Carbon Dioxide 34 mEq/L (23-29); Chloride 94 mEq/L (98-107); Glucose 110 mg/dL (70-105); Magnesium 2.1 mg/dL (1.6-2.6); Osmolality,Calculated 286 (280-300); Phosphorous 3.3 mg/dL (2.7-4.5); Potassium 4.2 mEq/L (3.5-5.1); Sodium 137 mEq/L (136-145); eGFR For African Americans > 60 (> 60); eGFR For Non-African Americans > 60 (> 60)
[2020-06-08] MEDS: *HR* Heparin 5,000 UNIT/ML VIAL SQ SCH ×3 (05:08→23:51)
[2020-06-08] MEDS: Budesonide/Formoterol 160/4.5 1 PUFF INH IH SCH ×2 (07:41→19:50)
[2020-06-08] MEDS: Cyanocobalamin (B-12) 1,000 MCG TABLET PO SCH (07:49)
[2020-06-08] MEDS: Sennosides 8.6 MG TABLET PO SCH (07:49)
[2020-06-08] MEDS: Aspirin Enteric Coated 81 MG Tablet PO SCH (07:49)
[2020-06-08] MEDS: allopurinoL 100 MG TABLET PO SCH (07:49)
[2020-06-08] MEDS: predniSONE 20 MG TABLET PO SCH (07:49)
[2020-06-08] MEDS: Cholecalciferol (D-3) 1,000 UNIT (25MCG) TABLET PO SCH (07:49)
[2020-06-09] MEDS ORDERED: *HR* LORazepam 2 MG/ML VIAL IVP PRN
[2020-06-09] MEDS ORDERED: Prochlorperazine 10 MG/2 ML VIAL IVP PRN
[2020-06-09] MEDS ORDERED: Etoposide 210 MG in 0.9 % Sodium Chloride Excel Bg 500 ML IV SCH
[2020-06-09] MEDS: Ipratropium/Albuterol Neb 3 ML IH SCH ×7 (00:13→23:09)
[2020-06-09 05:15] LABS: Basophils # 0.1 K/mcL (0.0-0.2); Basophils % 0.6 %; Eosinophils # 0.1 K/mcL (0.0-0.6); Eosinophils % 0.3 %; Hematocrit 41.2 % (37.5-50.1); Hemoglobin 13.3 g/dL (12.9-16.9); Immature Granulocytes % 2.3 % (0-4); Lymphocytes # 1.1 K/mcL (0.6-4.6); Lymphocytes % 6.5 %; Mean Corpuscular HGB Conc 32.3 g/dL (31.6-35.5); Mean Corpuscular Hemoglobin 30.5 pg (28.0-33.3); Mean Corpuscular Volume 94.5 fL (83.0-100.0); Mean Platelet Volume 9.7 fL (9.4-12.4); Monocytes # 1.4 K/mcL (0.0-1.3); Monocytes % 7.7 %; Neutrophils # 14.5 K/mcL (1.6-8.9); Platelet Count 286 K/mcL (140-400); Red Blood Count 4.36 M/mcL (4.19-5.50); Red Cell Distribution Width 13.1 % (11.5-14.5); Segmented Neutrophils % 82.6 %; White Blood Count 17.6 K/mcL (4.3-11.1)
[2020-06-09 06:04] LABS: BUN/Creatinine Ratio 27 (6-26); Blood Urea Nitrogen 21 mg/dL (8-23); Calcium 8.9 mg/dL (8.6-10.3); Carbon Dioxide 34 mEq/L (23-29); Chloride 94 mEq/L (98-107); Glucose 119 mg/dL (70-105); Magnesium 2.2 mg/dL (1.6-2.6); Osmolality,Calculated 288 (280-300); Potassium 4.1 mEq/L (3.5-5.1); Sodium 137 mEq/L (136-145); eGFR For African Americans > 60 (> 60); eGFR For Non-African Americans > 60 (> 60)
[2020-06-09] MEDS: *HR* Heparin 5,000 UNIT/ML VIAL SQ SCH ×3 (06:53→22:08)
[2020-06-09] MEDS: Budesonide/Formoterol 160/4.5 1 PUFF INH IH SCH ×2 (07:52→20:33)
[2020-06-09] MEDS: Aspirin Enteric Coated 81 MG Tablet PO SCH (09:20)
[2020-06-09] MEDS: Cholecalciferol (D-3) 1,000 UNIT (25MCG) TABLET PO SCH (09:20)
[2020-06-09] MEDS: Sennosides 8.6 MG TABLET PO SCH (09:21)
[2020-06-09] MEDS: allopurinoL 100 MG TABLET PO SCH (09:21)
[2020-06-09] MEDS: Cyanocobalamin (B-12) 1,000 MCG TABLET PO SCH (09:21)
[2020-06-09] MEDS: predniSONE 20 MG TABLET PO SCH (09:23)
[2020-06-09] MEDS ORDERED: Fosaprepitant Dimeglumine 150 MG in 0.9 % Sodium Chloride 150 ML IVPB SCH (09:30)
[2020-06-09] MEDS ORDERED: Dexamethasone 10 MG/ML VIAL IVP SCH (09:30)
[2020-06-09] MEDS ORDERED: Etoposide 200 MG in 0.9 % Sodium Chloride Excel Bg 500 ML IVPB SCH (10:00)
[2020-06-09] MEDS: 0.9 % Sodium Chloride 500 ML IVC SCH ×2 (10:40→20:04)
[2020-06-09] MEDS ORDERED: CARBOPLATIN IV SCH (11:00)
[2020-06-09] MEDS ORDERED: SODIUM CHLORIDE 0.9% IV SCH (11:00)
[2020-06-09] MEDS: levoFLOXacin 750 MG TABLET PO SCH (15:49)
[2020-06-10] MEDS: Ipratropium/Albuterol Neb 3 ML IH SCH ×6 (03:49→23:54)
[2020-06-10] MEDS: *HR* Heparin 5,000 UNIT/ML VIAL SQ SCH ×3 (06:55→22:05)
[2020-06-10] MEDS: Budesonide/Formoterol 160/4.5 1 PUFF INH IH SCH ×2 (07:49→20:07)
[2020-06-10] MEDS ORDERED: levoFLOXacin 750 MG TABLET PO SCH (09:00)
[2020-06-10] MEDS ORDERED: Etoposide 200 MG in 0.9 % Sodium Chloride Excel Bg 500 ML IVPB SCH (11:00)
[2020-06-10] MEDS: levoFLOXacin 750 MG TABLET PO SCH (11:29)
[2020-06-10] MEDS: Cholecalciferol (D-3) 1,000 UNIT (25MCG) TABLET PO SCH (11:29)
[2020-06-10] MEDS: Cyanocobalamin (B-12) 1,000 MCG TABLET PO SCH (11:31)
[2020-06-10] MEDS: predniSONE 20 MG TABLET PO SCH (11:31)
[2020-06-10] MEDS: Aspirin Enteric Coated 81 MG Tablet PO SCH (11:32)
[2020-06-10] MEDS: allopurinoL 100 MG TABLET PO SCH (11:32)
[2020-06-10] MEDS: Sennosides 8.6 MG TABLET PO SCH (11:32)
[2020-06-10 12:54] LABS: Basophils % 0.2 %; Hematocrit 41.4 % (37.5-50.1); Hemoglobin 12.9 g/dL (12.9-16.9); Immature Granulocytes % 1.1 % (0-4); Lymphocytes # 0.4 K/mcL (0.6-4.6); Lymphocytes % 1.9 %; Mean Corpuscular HGB Conc 31.2 g/dL (31.6-35.5); Mean Corpuscular Hemoglobin 30.2 pg (28.0-33.3); Monocytes % 5.1 %; Platelet Count 305 K/mcL (140-400); Red Blood Count 4.27 M/mcL (4.19-5.50); Segmented Neutrophils % 91.7 %; White Blood Count 18.6 K/mcL (4.3-11.1)
[2020-06-10 13:01] LABS: BUN/Creatinine Ratio 34 (6-26); Blood Urea Nitrogen 25 mg/dL (8-23); Calcium 8.6 mg/dL (8.6-10.3); Carbon Dioxide 32 mEq/L (23-29); Chloride 94 mEq/L (98-107); Glucose 189 mg/dL (70-105); Magnesium 2.2 mg/dL (1.6-2.6); Osmolality,Calculated 289 (280-300); Phosphorous 3.5 mg/dL (2.7-4.5); Potassium 4.7 mEq/L (3.5-5.1); Sodium 135 mEq/L (136-145); eGFR For African Americans > 60 (> 60); eGFR For Non-African Americans > 60 (> 60)
[2020-06-10] MEDS: 0.9 % Sodium Chloride 500 ML IVPB SCH (14:01)
[2020-06-11] MEDS: Ipratropium/Albuterol Neb 3 ML IH SCH ×6 (04:04→23:47)
[2020-06-11] MEDS: *HR* Heparin 5,000 UNIT/ML VIAL SQ SCH ×3 (05:35→21:37)
[2020-06-11 07:14] LABS: Basophils % 0.1 %; Hematocrit 37.3 % (37.5-50.1); Hemoglobin 11.7 g/dL (12.9-16.9); Immature Granulocytes % 0.7 % (0-4); Lymphocytes # 0.6 K/mcL (0.6-4.6); Lymphocytes % 3.7 %; Mean Corpuscular HGB Conc 31.4 g/dL (31.6-35.5); Mean Corpuscular Hemoglobin 30.6 pg (28.0-33.3); Mean Corpuscular Volume 97.6 fL (83.0-100.0); Mean Platelet Volume 9.3 fL (9.4-12.4); Monocytes # 0.8 K/mcL (0.0-1.3); Monocytes % 5.2 %; Neutrophils # 13.4 K/mcL (1.6-8.9); Platelet Count 231 K/mcL (140-400); Red Blood Count 3.82 M/mcL (4.19-5.50); Segmented Neutrophils % 90.3 %; White Blood Count 14.9 K/mcL (4.3-11.1)
[2020-06-11 07:33] LABS: BUN/Creatinine Ratio 34 (6-26); Blood Urea Nitrogen 24 mg/dL (8-23); Calcium 8.3 mg/dL (8.6-10.3); Carbon Dioxide 37 mEq/L (23-29); Chloride 98 mEq/L (98-107); Glucose 117 mg/dL (70-105); Osmolality,Calculated 293 (280-300); Potassium 4.8 mEq/L (3.5-5.1); Sodium 139 mEq/L (136-145); eGFR For African Americans > 60 (> 60); eGFR For Non-African Americans > 60 (> 60)
[2020-06-11] MEDS: Budesonide/Formoterol 160/4.5 1 PUFF INH IH SCH ×2 (07:37→20:06)
[2020-06-11] MEDS ORDERED: Etoposide 200 MG in 0.9 % Sodium Chloride Excel Bg 500 ML IVPB SCH (11:00)
[2020-06-11] MEDS: 0.9 % Sodium Chloride 500 ML IVPB SCH (11:03)
[2020-06-11] MEDS: predniSONE 20 MG TABLET PO SCH (11:04)
[2020-06-11] MEDS: Aspirin Enteric Coated 81 MG Tablet PO SCH (11:04)
[2020-06-11] MEDS: Sennosides 8.6 MG TABLET PO SCH (11:04)
[2020-06-11] MEDS: Cyanocobalamin (B-12) 1,000 MCG TABLET PO SCH (11:04)
[2020-06-11] MEDS: levoFLOXacin 750 MG TABLET PO SCH (11:04)
[2020-06-11] MEDS: allopurinoL 100 MG TABLET PO SCH (11:04)
[2020-06-11] MEDS: Cholecalciferol (D-3) 1,000 UNIT (25MCG) TABLET PO SCH (11:04)
[2020-06-12 02:46] LABS: Basophils % 0.1 %; Hematocrit 41.9 % (37.5-50.1); Immature Granulocytes % 0.5 % (0-4); Lymphocytes # 0.6 K/mcL (0.6-4.6); Lymphocytes % 4.2 %; Mean Corpuscular Hemoglobin 30.7 pg (28.0-33.3); Mean Corpuscular Volume 99.1 fL (83.0-100.0); Mean Platelet Volume 9.6 fL (9.4-12.4); Monocytes # 0.5 K/mcL (0.0-1.3); Monocytes % 3.4 %; Neutrophils # 14.1 K/mcL (1.6-8.9); Platelet Count 271 K/mcL (140-400); Red Blood Count 4.23 M/mcL (4.19-5.50); Red Cell Distribution Width 13.2 % (11.5-14.5); Segmented Neutrophils % 91.8 %; White Blood Count 15.4 K/mcL (4.3-11.1)
[2020-06-12 03:06] LABS: BUN/Creatinine Ratio 37 (6-26); Blood Urea Nitrogen 25 mg/dL (8-23); Calcium 8.4 mg/dL (8.6-10.3); Carbon Dioxide 34 mEq/L (23-29); Chloride 97 mEq/L (98-107); Glucose 123 mg/dL (70-105); Osmolality,Calculated 290 (280-300); Potassium 4.9 mEq/L (3.5-5.1); Sodium 137 mEq/L (136-145); eGFR For African Americans > 60 (> 60); eGFR For Non-African Americans > 60 (> 60)
[2020-06-12] MEDS: Ipratropium/Albuterol Neb 3 ML IH SCH ×4 (03:58→16:04)
[2020-06-12] MEDS: *HR* Heparin 5,000 UNIT/ML VIAL SQ SCH ×2 (06:05→13:09)
[2020-06-12] MEDS: Budesonide/Formoterol 160/4.5 1 PUFF INH IH SCH (07:34)
[2020-06-12] MEDS: allopurinoL 100 MG TABLET PO SCH (09:12)
[2020-06-12] MEDS: Cyanocobalamin (B-12) 1,000 MCG TABLET PO SCH (09:13)
[2020-06-12] MEDS: predniSONE 20 MG TABLET PO SCH (09:13)
[2020-06-12] MEDS: Cholecalciferol (D-3) 1,000 UNIT (25MCG) TABLET PO SCH (09:13)
[2020-06-12] MEDS: levoFLOXacin 750 MG TABLET PO SCH (09:13)
[2020-06-12] MEDS: Aspirin Enteric Coated 81 MG Tablet PO SCH (09:13)
[2020-06-12] MEDS: Sennosides 8.6 MG TABLET PO SCH (09:13)
[2020-06-12] MEDS ORDERED: Sennosides/Docusate Sodium TABLET PO SCH (11:00)
[2020-06-12] MEDS ORDERED: Sennosides/Docusate Sodium TABLET PO PRN (13:03)
[2020-06-12 18:41] VITALS: BP 119/54
== END 2020-06-12 19:36 | DRG 871 ==
LOC: EMEROOARM 15:58 → 3BNU 15:58 → SUATTDRO 19:44 → 3ANU 20:16 → 2ANU 22:08 → SUATTDRO 05-26 13:47 → 2NNU 05-29 19:50 → 3ANU 06-08 20:43
PROVIDERS: ADMIT Student in an Organized Health Care Education/Training Program; ATTEND Student in an Organized Health Care Education/Training Program

== ENCOUNTER 2020-06-13 21:34 | Inpatient (IN) ==
[2020-06-13 22:10] LABS: Hematocrit 42.5 % (37.5-50.1); Hemoglobin 13.9 g/dL (12.9-16.9); Mean Corpuscular HGB Conc 32.7 g/dL (31.6-35.5); Mean Corpuscular Hemoglobin 31.3 pg (28.0-33.3); Mean Corpuscular Volume 95.7 fL (83.0-100.0); Mean Platelet Volume 9.8 fL (9.4-12.4); Platelet Count 240 K/mcL (140-400); Red Blood Count 4.44 M/mcL (4.19-5.50); Red Cell Distribution Width 13.1 % (11.5-14.5)
[2020-06-13 22:20] LABS: Prothrombin Time 11.7 Seconds (9.4-12.1)
[2020-06-13 22:22] LABS: Activated Partial Thrombo Time 25.2 Seconds (26.0-36.0)
[2020-06-13 22:24] LABS: White Blood Count 79.9 K/mcL (4.3-11.1)
[2020-06-13 22:35] LABS: Alanine Aminotransferase 18 Units/L (7-52); Albumin 3.9 g/dL (3.5-5.7); Albumin/Globulin Ratio 1.4 (1.1-2.2); Alkaline Phosphatase 62 Units/L (34-104); Aspartate Amino Transferase 21 Units/L (13-39); BUN/Creatinine Ratio 45 (6-26); Bilirubin,Direct 0.1 mg/dL (0.0-0.2); Bilirubin,Indirect 0.6 mg/dL (0.0-1.0); Bilirubin,Total 0.7 mg/dL (0.3-1.0); Blood Urea Nitrogen 46 mg/dL (8-23); Calcium 9.6 mg/dL (8.6-10.3); Carbon Dioxide 34 mEq/L (23-29); Chloride 90 mEq/L (98-107); Globulin 2.8 g/dL (2.4-3.5); Glucose 165 mg/dL (70-105); Lipase 16 Units/L (11-82); Magnesium 2.6 mg/dL (1.6-2.6); Osmolality,Calculated 294 (280-300); Phosphorous 3.7 mg/dL (2.7-4.5); Potassium 4.8 mEq/L (3.5-5.1); Sodium 134 mEq/L (136-145); Total Protein 6.7 g/dL (6.4-8.9); Troponin I 0.07 ng/mL (< 0.04); eGFR For African Americans > 60 (> 60); eGFR For Non-African Americans > 60 (> 60)
[2020-06-13] MEDS ORDERED: Piperacillin/Tazobactam 3.375 GM in 0.9 % Sodium Chloride Mini Bag 100 ML IVPB ONE (22:41)
[2020-06-13 22:42] LABS: Bilirubin,Urine Negative (Negative); Blood,Urine Negative (Negative); Clarity,Urine Clear (Clear); Color,Urine Yellow (Yellow); Glucose,Urine (UA) Normal (Normal); Ketones,Urine Negative (Negative); Leukocyte Esterase,Urine Moderate (Negative); Nitrite,Urine Negative (Negative); Protein,Urine Trace mg/dL (Neg-Trace); RBC,Urine 0-3 per hpf (0-3); Squamous Epithelial Cell,Urine Few per hpf (None-Few); Urobilinogen,Urine Normal (Normal); WBC,Urine 0-3 per hpf (0-3)
[2020-06-13] MEDS ORDERED: Azithromycin 500 MG in 0.9 % Sodium Chloride 250 ML IVPB ONE (22:42)
[2020-06-13] MEDS ORDERED: Isovue-370 500 ML BOTTLE IVP ONE (22:43)
[2020-06-13 22:46] LABS: Lymphocytes # 1.6 K/mcL (0.6-4.6); Neutrophils # 78.3 K/mcL (1.6-8.9); Platelet Estimate Normal (Normal)
[2020-06-13 23:44] LABS: Adenovirus Not Detected (Not Detect); Bordetella Pertussis Not Detected (Not Detect); Chlamydophila pneumoniae Not Detected (Not Detect); Coronavirus 229E Not Detected (Not Detect); Coronavirus HKU1 Not Detected (Not Detect); Coronavirus NL63 Not Detected (Not Detect); Coronavirus OC43 Not Detected (Not Detect); Human Metapneumovirus Not Detected (Not Detect); Human Rhinovirus/Enterovirus Not Detected (Not Detect); Influenza A Subtype 2009 H1 Not Detected (Not Detect); Influenza B Not Detected (Not Detect); Mycoplasma pneumoniae Not Detected (Not Detect); Parainfluenza Virus 1 Not Detected (Not Detect); Parainfluenza Virus 2 Not Detected (Not Detect); Parainfluenza Virus 3 Not Detected (Not Detect); Parainfluenza Virus 4 Not Detected (Not Detect); Respiratory Syncytial Virus Not Detected (Not Detect); SARS-CoV-2 Not Detected (Not Detect)
[2020-06-14] MEDS ORDERED: Ipratropium/Albuterol Neb 3 ML IH ONE (00:50)
[2020-06-14] MEDS ORDERED: Naloxone 0.4 MG/ML INJ IVP PRN (01:11)
[2020-06-14 04:59] LABS: Hematocrit 35.7 % (37.5-50.1); Hemoglobin 11.5 g/dL (12.9-16.9); Mean Corpuscular HGB Conc 32.2 g/dL (31.6-35.5); Mean Corpuscular Hemoglobin 30.3 pg (28.0-33.3); Mean Corpuscular Volume 94.2 fL (83.0-100.0); Mean Platelet Volume 9.7 fL (9.4-12.4); Platelet Count 198 K/mcL (140-400); Red Blood Count 3.79 M/mcL (4.19-5.50); Red Cell Distribution Width 13.2 % (11.5-14.5)
[2020-06-14 05:08] LABS: White Blood Count 55.2 K/mcL (4.3-11.1)
[2020-06-14 05:11] LABS: BUN/Creatinine Ratio 48 (6-26); Blood Urea Nitrogen 41 mg/dL (8-23); Calcium 8.4 mg/dL (8.6-10.3); Carbon Dioxide 35 mEq/L (23-29); Chloride 95 mEq/L (98-107); Glucose 145 mg/dL (70-105); Osmolality,Calculated 293 (280-300); Potassium 4.4 mEq/L (3.5-5.1); Sodium 135 mEq/L (136-145); eGFR For African Americans > 60 (> 60); eGFR For Non-African Americans > 60 (> 60)
[2020-06-14] MEDS: Ipratropium/Albuterol Neb 3 ML IH SCH ×4 (07:20→21:49)
[2020-06-14] MEDS ORDERED: Lidocaine -MPF 2% 2 ML VIAL ONE (08:05)
[2020-06-14] MEDS ORDERED: Lidocaine -MPF 4% 5 ML AMPUL ONE (08:10)
[2020-06-14] MEDS ORDERED: *HR* FentaNYL (PF) 100 MCG/2 ML VIAL ONE (08:15)
[2020-06-14] MEDS ORDERED: *HR* Succinylcholine 200 MG/10 ML VIAL IVP ONE (08:17)
[2020-06-14] MEDS ORDERED: Albuterol 2.5 MG/3 ML NEBULIZER ONE (08:17)
[2020-06-14] MEDS ORDERED: Dexamethasone 4 MG/ML VIAL ONE (08:18)
[2020-06-14] MEDS ORDERED: Ondansetron 4 MG/2 ML VIAL ONE (08:18)
[2020-06-14] MEDS ORDERED: *HR* Vasopressin 20 UNIT/ML VIAL ONE (08:32)
[2020-06-14] MEDS ORDERED: Albuterol 2.5 MG/3 ML NEBULIZER IH ONE (08:38)
[2020-06-14] MEDS: *HR* Heparin 5,000 UNIT/ML VIAL SQ SCH (18:11)
[2020-06-14] MEDS: levoFLOXacin 750 MG TABLET PO SCH (18:11)
[2020-06-14] MEDS: predniSONE 10 MG TABLET PO SCH (18:11)
[2020-06-15] MEDS: Ipratropium/Albuterol Neb 3 ML IH SCH ×4 (03:38→21:54)
[2020-06-15 05:11] LABS: Hematocrit 33.1 % (37.5-50.1); Hemoglobin 10.7 g/dL (12.9-16.9); Mean Corpuscular HGB Conc 32.3 g/dL (31.6-35.5); Mean Corpuscular Hemoglobin 31.1 pg (28.0-33.3); Mean Corpuscular Volume 96.2 fL (83.0-100.0); Mean Platelet Volume 9.6 fL (9.4-12.4); Platelet Count 167 K/mcL (140-400); Red Blood Count 3.44 M/mcL (4.19-5.50); Red Cell Distribution Width 13.3 % (11.5-14.5)
[2020-06-15 05:17] LABS: White Blood Count 31.1 K/mcL (4.3-11.1)
[2020-06-15 05:28] LABS: BUN/Creatinine Ratio 49 (6-26); Blood Urea Nitrogen 35 mg/dL (8-23); Calcium 8.1 mg/dL (8.6-10.3); Carbon Dioxide 38 mEq/L (23-29); Chloride 92 mEq/L (98-107); Glucose 122 mg/dL (70-105); Osmolality,Calculated 287 (280-300); Potassium 4.4 mEq/L (3.5-5.1); Sodium 134 mEq/L (136-145); eGFR For African Americans > 60 (> 60); eGFR For Non-African Americans > 60 (> 60)
[2020-06-15 05:33] LABS: Lymphocytes # 1.2 K/mcL (0.6-4.6); Neutrophils # 29.9 K/mcL (1.6-8.9)
[2020-06-15] MEDS: *HR* Heparin 5,000 UNIT/ML VIAL SQ SCH ×2 (06:16→17:27)
[2020-06-15] MEDS: Aspirin Enteric Coated 81 MG Tablet PO SCH (08:56)
[2020-06-15] MEDS ORDERED: hydroCHLOROthiazide 25 MG TABLET PO SCH (09:00)
[2020-06-15] MEDS ORDERED: Calcium Gluconate 1gm/50mL 1 GM/50 ML BAG IVPB ONE (14:26)
[2020-06-15] MEDS: predniSONE 10 MG TABLET PO SCH (16:01)
[2020-06-15] MEDS: levoFLOXacin 750 MG TABLET PO SCH (16:01)
[2020-06-15] MEDS ORDERED: Ipratropium/Albuterol Neb 3 ML IH PRN (20:20)
[2020-06-15] MEDS ORDERED: *HR* LORazepam 0.5 MG TABLET PO ONE (20:52)
[2020-06-15] MEDS: Budesonide/Formoterol 80/4.5 1 PUFF INH IH SCH (21:54)
[2020-06-16 03:05] LABS: Hematocrit 32.1 % (37.5-50.1); Hemoglobin 10.1 g/dL (12.9-16.9); Mean Corpuscular HGB Conc 31.5 g/dL (31.6-35.5); Mean Corpuscular Hemoglobin 30.1 pg (28.0-33.3); Mean Corpuscular Volume 95.5 fL (83.0-100.0); Mean Platelet Volume 9.8 fL (9.4-12.4); Platelet Count 150 K/mcL (140-400); Red Blood Count 3.36 M/mcL (4.19-5.50); Red Cell Distribution Width 13.1 % (11.5-14.5)
[2020-06-16 03:18] LABS: White Blood Count 11.6 K/mcL (4.3-11.1)
[2020-06-16 03:20] LABS: BUN/Creatinine Ratio 48 (6-26); Blood Urea Nitrogen 30 mg/dL (8-23); Calcium 8.1 mg/dL (8.6-10.3); Carbon Dioxide 34 mEq/L (23-29); Chloride 94 mEq/L (98-107); Glucose 109 mg/dL (70-105); Osmolality,Calculated 285 (280-300); Potassium 4.5 mEq/L (3.5-5.1); Sodium 134 mEq/L (136-145); eGFR For African Americans > 60 (> 60); eGFR For Non-African Americans > 60 (> 60)
[2020-06-16] MEDS: Ipratropium/Albuterol Neb 3 ML IH SCH ×4 (03:57→22:21)
[2020-06-16 04:19] LABS: Lymphocytes # 1.2 K/mcL (0.6-4.6); Neutrophils # 10.4 K/mcL (1.6-8.9)
[2020-06-16 04:20] LABS: Platelet Estimate Normal (Normal)
[2020-06-16] MEDS: *HR* Heparin 5,000 UNIT/ML VIAL SQ SCH ×2 (05:20→16:30)
[2020-06-16] MEDS: Multivit/Ca/Min/Fe/FA 1 TAB TABLET PO SCH (10:10)
[2020-06-16] MEDS: Cyanocobalamin (B-12) 1,000 MCG TABLET PO SCH (10:10)
[2020-06-16] MEDS: Cholecalciferol (D-3) 1,000 UNIT (25MCG) TABLET PO SCH (10:10)
[2020-06-16] MEDS: Aspirin Enteric Coated 81 MG Tablet PO SCH (10:10)
[2020-06-16] MEDS: Budesonide/Formoterol 80/4.5 1 PUFF INH IH SCH (10:20)
[2020-06-16] MEDS ORDERED: Tigecycline 100 MG in 0.9 % Sodium Chloride Mini Bag 100 ML IVPB ONE (15:17)
[2020-06-16] MEDS: predniSONE 10 MG TABLET PO SCH (16:30)
[2020-06-16] MEDS ORDERED: *HR* LORazepam 0.5 MG TABLET PO ONE (21:51)
[2020-06-16] MEDS: Budesonide/Formoterol 160/4.5 1 PUFF INH IH SCH (22:21)
[2020-06-17 03:24] LABS: Hematocrit 32.3 % (37.5-50.1); Hemoglobin 10.4 g/dL (12.9-16.9); Mean Corpuscular HGB Conc 32.2 g/dL (31.6-35.5); Mean Corpuscular Hemoglobin 30.6 pg (28.0-33.3); Mean Platelet Volume 9.6 fL (9.4-12.4); Neutrophils # 0.9 K/mcL (1.6-8.9); Platelet Count 116 K/mcL (140-400); Red Cell Distribution Width 13.1 % (11.5-14.5); White Blood Count 1.8 K/mcL (4.3-11.1)
[2020-06-17 03:27] LABS: Prothrombin Time 11.3 Seconds (9.4-12.1)
[2020-06-17 03:29] LABS: Activated Partial Thrombo Time 25.2 Seconds (26.0-36.0)
[2020-06-17 03:39] LABS: BUN/Creatinine Ratio 39 (6-26); Blood Urea Nitrogen 23 mg/dL (8-23); Calcium 8.1 mg/dL (8.6-10.3); Carbon Dioxide 35 mEq/L (23-29); Chloride 93 mEq/L (98-107); Glucose 102 mg/dL (70-105); Osmolality,Calculated 280 (280-300); Potassium 4.5 mEq/L (3.5-5.1); Sodium 133 mEq/L (136-145); eGFR For African Americans > 60 (> 60); eGFR For Non-African Americans > 60 (> 60)
[2020-06-17 03:47] LABS: Lymphocytes # 0.8 K/mcL (0.6-4.6); Platelet Estimate Slight Decrease (Normal)
[2020-06-17] MEDS: Ipratropium/Albuterol Neb 3 ML IH SCH ×4 (03:49→21:37)
[2020-06-17] MEDS: Tigecycline 50 MG in 0.9 % Sodium Chloride Mini Bag 100 ML IVPB SCH ×2 (05:17→19:03)
[2020-06-17] MEDS: *HR* Heparin 5,000 UNIT/ML VIAL SQ SCH ×2 (05:18→19:03)
[2020-06-17] MEDS: Multivit/Ca/Min/Fe/FA 1 TAB TABLET PO SCH (10:06)
[2020-06-17] MEDS: Cyanocobalamin (B-12) 1,000 MCG TABLET PO SCH (10:06)
[2020-06-17] MEDS: Cholecalciferol (D-3) 1,000 UNIT (25MCG) TABLET PO SCH (10:06)
[2020-06-17] MEDS: Aspirin Enteric Coated 81 MG Tablet PO SCH (10:06)
[2020-06-17] MEDS: Budesonide/Formoterol 160/4.5 1 PUFF INH IH SCH ×2 (10:45→21:37)
[2020-06-17] MEDS: Clotrimazole 1% CRM 15 GM TUBE TP SCH ×2 (12:50→21:54)
[2020-06-17] MEDS: predniSONE 10 MG TABLET PO SCH (19:04)
[2020-06-18 02:15] LABS: Lymphocytes # 0.3 K/mcL (0.6-4.6); Mean Corpuscular Volume 93.5 fL (83.0-100.0)
[2020-06-18 02:17] LABS: Hemoglobin 10.5 g/dL (12.9-16.9); Immature Platelets 2.6 % (1.1-6.1); Mean Corpuscular HGB Conc 31.8 g/dL (31.6-35.5); Mean Corpuscular Hemoglobin 29.7 pg (28.0-33.3); Mean Platelet Volume 9.6 fL (9.4-12.4); Platelet Count 105 K/mcL (140-400); Red Blood Count 3.53 M/mcL (4.19-5.50); Red Cell Distribution Width 12.9 % (11.5-14.5)
[2020-06-18 02:22] LABS: White Blood Count 0.5 K/mcL (4.3-11.1)
[2020-06-18 02:35] LABS: BUN/Creatinine Ratio 44 (6-26); Blood Urea Nitrogen 25 mg/dL (8-23); Calcium 7.9 mg/dL (8.6-10.3); Carbon Dioxide 31 mEq/L (23-29); Chloride 93 mEq/L (98-107); Glucose 138 mg/dL (70-105); Osmolality,Calculated 279 (280-300); Potassium 4.9 mEq/L (3.5-5.1); Sodium 131 mEq/L (136-145); eGFR For African Americans > 60 (> 60); eGFR For Non-African Americans > 60 (> 60)
[2020-06-18 03:09] LABS: Neutrophils # 0.2 K/mcL (1.6-8.9)
[2020-06-18 03:10] LABS: Platelet Estimate Slight Decrease (Normal); Toxic Granulation Present (Not Present)
[2020-06-18] MEDS: Ipratropium/Albuterol Neb 3 ML IH SCH ×4 (03:16→23:52)
[2020-06-18 04:56] LABS: Lymphocytes # 0.5 K/mcL (0.6-4.6); Red Cell Distribution Width 12.9 % (11.5-14.5)
[2020-06-18 04:57] LABS: Hematocrit 31.9 % (37.5-50.1); Hemoglobin 10.5 g/dL (12.9-16.9); Mean Corpuscular HGB Conc 32.9 g/dL (31.6-35.5); Mean Corpuscular Hemoglobin 30.5 pg (28.0-33.3); Mean Corpuscular Volume 92.7 fL (83.0-100.0); Mean Platelet Volume 9.8 fL (9.4-12.4); Neutrophils # 0.1 K/mcL (1.6-8.9); Platelet Count 103 K/mcL (140-400); Red Blood Count 3.44 M/mcL (4.19-5.50)
[2020-06-18 05:13] LABS: White Blood Count 0.7 K/mcL (4.3-11.1)
[2020-06-18] MEDS: *HR* Heparin 5,000 UNIT/ML VIAL SQ SCH ×2 (05:38→18:04)
[2020-06-18] MEDS: Tigecycline 50 MG in 0.9 % Sodium Chloride Mini Bag 100 ML IVPB SCH ×2 (05:40→18:04)
[2020-06-18 06:07] LABS: Monocytes # 0.1 K/mcL (0.0-1.3); Platelet Estimate Slight Decrease (Normal)
[2020-06-18] MEDS: Clotrimazole 1% CRM 15 GM TUBE TP SCH ×2 (10:23→20:17)
[2020-06-18] MEDS: Cholecalciferol (D-3) 1,000 UNIT (25MCG) TABLET PO SCH (10:23)
[2020-06-18] MEDS: Multivit/Ca/Min/Fe/FA 1 TAB TABLET PO SCH (10:23)
[2020-06-18] MEDS: Cyanocobalamin (B-12) 1,000 MCG TABLET PO SCH (10:23)
[2020-06-18] MEDS: Aspirin Enteric Coated 81 MG Tablet PO SCH (10:23)
[2020-06-18] MEDS: Budesonide/Formoterol 160/4.5 1 PUFF INH IH SCH ×2 (11:10→23:52)
[2020-06-18] MEDS: predniSONE 10 MG TABLET PO SCH (18:03)
[2020-06-19] MEDS: Ipratropium/Albuterol Neb 3 ML IH SCH ×4 (04:23→22:02)
[2020-06-19] MEDS: *HR* Heparin 5,000 UNIT/ML VIAL SQ SCH ×2 (05:17→16:08)
[2020-06-19] MEDS: Tigecycline 50 MG in 0.9 % Sodium Chloride Mini Bag 100 ML IVPB SCH ×2 (05:18→18:15)
[2020-06-19] MEDS: Aspirin Enteric Coated 81 MG Tablet PO SCH (07:39)
[2020-06-19] MEDS: Cholecalciferol (D-3) 1,000 UNIT (25MCG) TABLET PO SCH (07:39)
[2020-06-19] MEDS: Cyanocobalamin (B-12) 1,000 MCG TABLET PO SCH (07:39)
[2020-06-19] MEDS: Multivit/Ca/Min/Fe/FA 1 TAB TABLET PO SCH (07:39)
[2020-06-19] MEDS: Clotrimazole 1% CRM 15 GM TUBE TP SCH ×2 (08:07→20:07)
[2020-06-19] MEDS: Budesonide/Formoterol 160/4.5 1 PUFF INH IH SCH ×2 (10:56→22:02)
[2020-06-19] MEDS: allopurinoL 100 MG TABLET PO SCH (13:21)
[2020-06-19] MEDS: hydroCHLOROthiazide 25 MG TABLET PO SCH (14:15)
[2020-06-19] MEDS: predniSONE 10 MG TABLET PO SCH (16:16)
[2020-06-19 18:09] LABS: Basophils % 0.7 %; Hemoglobin 11.2 g/dL (12.9-16.9); Red Cell Distribution Width 12.5 % (11.5-14.5)
[2020-06-19 18:11] LABS: Eosinophils % 2.1 %; Hematocrit 34.7 % (37.5-50.1); Immature Platelets 3.2 % (1.1-6.1); Lymphocytes % 67.8 %; Mean Corpuscular HGB Conc 32.3 g/dL (31.6-35.5); Mean Corpuscular Hemoglobin 29.6 pg (28.0-33.3); Mean Corpuscular Volume 91.8 fL (83.0-100.0); Mean Platelet Volume 9.8 fL (9.4-12.4); Monocytes # 0.2 K/mcL (0.0-1.3); Neutrophils # 0.3 K/mcL (1.6-8.9); Red Blood Count 3.78 M/mcL (4.19-5.50); Segmented Neutrophils % 18.4 %; White Blood Count 1.5 K/mcL (4.3-11.1)
[2020-06-19 18:14] LABS: Platelet Count 99 K/mcL (140-400)
[2020-06-19 18:28] LABS: BUN/Creatinine Ratio 34 (6-26); Blood Urea Nitrogen 23 mg/dL (8-23); Calcium 8.1 mg/dL (8.6-10.3); Carbon Dioxide 34 mEq/L (23-29); Chloride 91 mEq/L (98-107); Glucose 127 mg/dL (70-105); Magnesium 2.4 mg/dL (1.6-2.6); Osmolality,Calculated 275 (280-300); Phosphorous 2.5 mg/dL (2.7-4.5); Potassium 4.5 mEq/L (3.5-5.1); Sodium 130 mEq/L (136-145); eGFR For African Americans > 60 (> 60); eGFR For Non-African Americans > 60 (> 60)
[2020-06-19 18:32] LABS: Platelet Estimate Decreased (Normal)
[2020-06-20] MEDS: Ipratropium/Albuterol Neb 3 ML IH SCH ×4 (04:31→21:35)
[2020-06-20] MEDS: *HR* Heparin 5,000 UNIT/ML VIAL SQ SCH ×2 (05:10→19:53)
[2020-06-20] MEDS: Tigecycline 50 MG in 0.9 % Sodium Chloride Mini Bag 100 ML IVPB SCH ×2 (05:46→19:52)
[2020-06-20] MEDS: Cyanocobalamin (B-12) 1,000 MCG TABLET PO SCH (08:54)
[2020-06-20] MEDS: Aspirin Enteric Coated 81 MG Tablet PO SCH (08:54)
[2020-06-20] MEDS: hydroCHLOROthiazide 25 MG TABLET PO SCH (08:54)
[2020-06-20] MEDS: Cholecalciferol (D-3) 1,000 UNIT (25MCG) TABLET PO SCH (08:54)
[2020-06-20] MEDS: Multivit/Ca/Min/Fe/FA 1 TAB TABLET PO SCH (08:55)
[2020-06-20] MEDS: Clotrimazole 1% CRM 15 GM TUBE TP SCH ×2 (08:56→19:53)
[2020-06-20 09:28] LABS: Mean Corpuscular Volume 90.7 fL (83.0-100.0)
[2020-06-20 09:29] LABS: Hematocrit 37.9 % (37.5-50.1); Hemoglobin 12.5 g/dL (12.9-16.9); Immature Platelets 3.9 % (1.1-6.1); Mean Corpuscular Hemoglobin 29.9 pg (28.0-33.3); Mean Platelet Volume 9.7 fL (9.4-12.4); Red Blood Count 4.18 M/mcL (4.19-5.50); Red Cell Distribution Width 12.5 % (11.5-14.5); White Blood Count 4.1 K/mcL (4.3-11.1)
[2020-06-20 09:47] LABS: BUN/Creatinine Ratio 36 (6-26); Blood Urea Nitrogen 23 mg/dL (8-23); Calcium 8.7 mg/dL (8.6-10.3); Carbon Dioxide 31 mEq/L (23-29); Chloride 90 mEq/L (98-107); Glucose 93 mg/dL (70-105); Magnesium 2.1 mg/dL (1.6-2.6); Osmolality,Calculated 273 (280-300); Potassium 4.2 mEq/L (3.5-5.1); Sodium 130 mEq/L (136-145); eGFR For African Americans > 60 (> 60); eGFR For Non-African Americans > 60 (> 60)
[2020-06-20] MEDS: Budesonide/Formoterol 160/4.5 1 PUFF INH IH SCH ×2 (11:33→21:35)
[2020-06-20] MEDS: allopurinoL 100 MG TABLET PO SCH (14:14)
[2020-06-20] MEDS: Nystatin SUSP 5 ML UD.LIQ PO SCH ×3 (14:14→21:18)
[2020-06-20] MEDS: predniSONE 10 MG TABLET PO SCH (20:18)
[2020-06-21 01:36] LABS: BUN/Creatinine Ratio 32 (6-26); Blood Urea Nitrogen 22 mg/dL (8-23); Calcium 8.3 mg/dL (8.6-10.3); Carbon Dioxide 28 mEq/L (23-29); Chloride 89 mEq/L (98-107); Glucose 121 mg/dL (70-105); Hematocrit 35.7 % (37.5-50.1); Immature Platelets 2.7 % (1.1-6.1); Mean Corpuscular HGB Conc 33.6 g/dL (31.6-35.5); Mean Corpuscular Volume 89.3 fL (83.0-100.0); Mean Platelet Volume 9.1 fL (9.4-12.4); Osmolality,Calculated 267 (280-300); Platelet Count 132 K/mcL (140-400); Potassium 4.4 mEq/L (3.5-5.1); Red Cell Distribution Width 12.7 % (11.5-14.5); Sodium 126 mEq/L (136-145); White Blood Count 8.8 K/mcL (4.3-11.1); eGFR For African Americans > 60 (> 60); eGFR For Non-African Americans > 60 (> 60)
[2020-06-21 02:16] LABS: Anisocytosis 1+ (Not Present); Lymphocytes # 2.5 K/mcL (0.6-4.6); Monocytes # 0.4 K/mcL (0.0-1.3); Neutrophils # 4.6 K/mcL (1.6-8.9); Toxic Granulation Present (Not Present)
[2020-06-21 02:17] LABS: Platelet Estimate Slight Decrease (Normal); Reactive Lymphocytes Present (Not Present); Smudge Cells Present (Not Present)
[2020-06-21] MEDS: Ipratropium/Albuterol Neb 3 ML IH SCH ×4 (04:18→21:41)
[2020-06-21] MEDS: Tigecycline 50 MG in 0.9 % Sodium Chloride Mini Bag 100 ML IVPB SCH ×2 (05:37→18:16)
[2020-06-21] MEDS: *HR* Heparin 5,000 UNIT/ML VIAL SQ SCH ×2 (06:06→18:11)
[2020-06-21 08:58] LABS: BUN/Creatinine Ratio 31 (6-26); Blood Urea Nitrogen 23 mg/dL (8-23); Calcium 8.1 mg/dL (8.6-10.3); Carbon Dioxide 30 mEq/L (23-29); Chloride 89 mEq/L (98-107); Glucose 106 mg/dL (70-105); Osmolality,Calculated 270 (280-300); Potassium 4.3 mEq/L (3.5-5.1); Sodium 128 mEq/L (136-145); eGFR For African Americans > 60 (> 60); eGFR For Non-African Americans > 60 (> 60)
[2020-06-21] MEDS: Aspirin Enteric Coated 81 MG Tablet PO SCH (09:21)
[2020-06-21] MEDS: Cyanocobalamin (B-12) 1,000 MCG TABLET PO SCH (09:21)
[2020-06-21] MEDS: Multivit/Ca/Min/Fe/FA 1 TAB TABLET PO SCH (09:21)
[2020-06-21] MEDS: Nystatin SUSP 5 ML UD.LIQ PO SCH ×4 (09:21→21:52)
[2020-06-21] MEDS: hydroCHLOROthiazide 25 MG TABLET PO SCH (09:21)
[2020-06-21] MEDS: Cholecalciferol (D-3) 1,000 UNIT (25MCG) TABLET PO SCH (09:21)
[2020-06-21] MEDS: Clotrimazole 1% CRM 15 GM TUBE TP SCH ×2 (09:22→21:53)
[2020-06-21] MEDS: Budesonide/Formoterol 160/4.5 1 PUFF INH IH SCH ×2 (10:38→21:42)
[2020-06-21] MEDS: allopurinoL 100 MG TABLET PO SCH (14:13)
[2020-06-21] MEDS ORDERED: Lidocaine -MPF 1% 5 ML AMPUL INFILT ONE (14:19)
[2020-06-21] MEDS ORDERED: Melatonin 3 MG TABLET PO ONE (22:20)
[2020-06-22] MEDS: Ipratropium/Albuterol Neb 3 ML IH SCH ×3 (04:03→15:12)
[2020-06-22] MEDS: *HR* Heparin 5,000 UNIT/ML VIAL SQ SCH ×2 (05:08→17:32)
[2020-06-22] MEDS: Tigecycline 50 MG in 0.9 % Sodium Chloride Mini Bag 100 ML IVPB SCH ×2 (05:09→17:32)
[2020-06-22 05:33] LABS: Hematocrit 33.2 % (37.5-50.1); Hemoglobin 11.3 g/dL (12.9-16.9); Mean Corpuscular Hemoglobin 30.4 pg (28.0-33.3); Mean Corpuscular Volume 89.2 fL (83.0-100.0); Mean Platelet Volume 8.7 fL (9.4-12.4); Platelet Count 117 K/mcL (140-400); Red Blood Count 3.72 M/mcL (4.19-5.50); Red Cell Distribution Width 12.7 % (11.5-14.5)
[2020-06-22 05:40] LABS: White Blood Count 18.6 K/mcL (4.3-11.1)
[2020-06-22 05:48] LABS: BUN/Creatinine Ratio 33 (6-26); Blood Urea Nitrogen 22 mg/dL (8-23); Calcium 7.8 mg/dL (8.6-10.3); Carbon Dioxide 31 mEq/L (23-29); Chloride 89 mEq/L (98-107); Glucose 116 mg/dL (70-105); Osmolality,Calculated 268 (280-300); Potassium 3.8 mEq/L (3.5-5.1); Sodium 127 mEq/L (136-145); eGFR For African Americans > 60 (> 60); eGFR For Non-African Americans > 60 (> 60)
[2020-06-22 06:30] LABS: Lymphocytes # 6.7 K/mcL (0.6-4.6); Monocytes # 1.1 K/mcL (0.0-1.3); Neutrophils # 10.4 K/mcL (1.6-8.9)
[2020-06-22 06:31] LABS: Anisocytosis 1+ (Not Present); Platelet Estimate Slight Decrease (Normal); Reactive Lymphocytes Present (Not Present); Toxic Granulation Present (Not Present)
[2020-06-22] MEDS: Cholecalciferol (D-3) 1,000 UNIT (25MCG) TABLET PO SCH (09:55)
[2020-06-22] MEDS: Cyanocobalamin (B-12) 1,000 MCG TABLET PO SCH (09:55)
[2020-06-22] MEDS: Multivit/Ca/Min/Fe/FA 1 TAB TABLET PO SCH (09:56)
[2020-06-22] MEDS: Aspirin Enteric Coated 81 MG Tablet PO SCH (09:56)
[2020-06-22] MEDS: Nystatin SUSP 5 ML UD.LIQ PO SCH ×3 (09:56→17:32)
[2020-06-22] MEDS: Clotrimazole 1% CRM 15 GM TUBE TP SCH (09:59)
[2020-06-22] MEDS: Budesonide/Formoterol 160/4.5 1 PUFF INH IH SCH (10:29)
[2020-06-22] MEDS: allopurinoL 100 MG TABLET PO SCH (12:08)
[2020-06-22 19:49] VITALS: BP 103/63
== END 2020-06-22 20:28 | DRG 871 ==
LOC: EMEROOARM 21:34 → 3ANU 21:34 → 2NNU 06-14 11:31 → SUATTDRO 06-14 17:42 → 3ANU 06-15 11:41
PROVIDERS: ADMIT Internal Medicine; ATTEND Internal Medicine
PROC: ENDOBRF (2020-06-14 17:30)

== ENCOUNTER 2020-07-03 11:17 | Inpatient (IN) ==
[2020-07-03 12:29] LABS: Hematocrit 34.3 % (37.5-50.1); Hemoglobin 11.6 g/dL (12.9-16.9); Mean Corpuscular HGB Conc 33.8 g/dL (31.6-35.5); Mean Corpuscular Hemoglobin 30.2 pg (28.0-33.3); Mean Corpuscular Volume 89.3 fL (83.0-100.0); Mean Platelet Volume 9.4 fL (9.4-12.4); Platelet Count 403 K/mcL (140-400); Red Blood Count 3.84 M/mcL (4.19-5.50); Red Cell Distribution Width 14.1 % (11.5-14.5); White Blood Count 28.4 K/mcL (4.3-11.1)
[2020-07-03 12:30] LABS: Bilirubin,Urine Negative (Negative); Blood,Urine Large (Negative); Clarity,Urine Turbid (Clear); Color,Urine Yellow (Yellow); Glucose,Urine (UA) Normal (Normal); Granular Casts,Urine Moderate per lpf (None Seen); Hyaline Casts,Urine Few per lpf (None Seen); Ketones,Urine Trace mg/dL (Negative); Leukocyte Esterase,Urine Small (Negative); Mucus,Urine Many per lpf (None-Few); Nitrite,Urine Negative (Negative); Protein,Urine 100 mg/dL (Neg-Trace); RBC,Urine TNTC per hpf (0-3); Specific Gravity,Urine > 1.030 (1.010-1.025); Urobilinogen,Urine Normal (Normal); WBC,Urine 30-50 per hpf (0-3)
[2020-07-03 12:31] LABS: INR 1.2; Prothrombin Time 13.5 Seconds (9.4-12.1)
[2020-07-03 12:34] LABS: Activated Partial Thrombo Time 26.4 Seconds (26.0-36.0)
[2020-07-03] MEDS ORDERED: Cefepime HCl 1,000 MG in 0.9 % Sodium Chloride Mini Bag 100 ML IVPB STA (12:39)
[2020-07-03] MEDS ORDERED: 0.9 % Sodium Chloride 1,000 ML IVC ONE (12:39)
[2020-07-03 12:49] LABS: Alanine Aminotransferase 46 Units/L (7-52); Albumin 2.4 g/dL (3.5-5.7); Alkaline Phosphatase 85 Units/L (34-104); Aspartate Amino Transferase 58 Units/L (13-39); BUN/Creatinine Ratio 44 (6-26); Bilirubin,Indirect 0.3 mg/dL (0.0-1.0); Bilirubin,Total 0.3 mg/dL (0.3-1.0); Blood Urea Nitrogen 30 mg/dL (8-23); Calcium 7.2 mg/dL (8.6-10.3); Carbon Dioxide 26 mEq/L (23-29); Chloride 93 mEq/L (98-107); Globulin 2.4 g/dL (2.4-3.5); Glucose 121 mg/dL (70-105); Osmolality,Calculated 271 (280-300); Potassium 4.5 mEq/L (3.5-5.1); Sodium 127 mEq/L (136-145); Total Protein 4.8 g/dL (6.4-8.9); Troponin I 0.03 ng/mL (< 0.04); eGFR For African Americans > 60 (> 60); eGFR For Non-African Americans > 60 (> 60)
[2020-07-03 14:10] LABS: ABG Base Excess -1 mEq/L (-2 to 3); ABG HCO3 24 mEq/L (21-27); ABG Oxygen Saturation 95 % (95-98); ABG PCO2 38 mmHg (35-45); ABG PH 7.41 pH Units (7.32-7.45); ABG PO2 76 mmHg (85-104); ABG TCO2 25 mEq/L (20-26)
[2020-07-03] MEDS ORDERED: Naloxone 0.4 MG/ML INJ IVP PRN (14:23)
[2020-07-03] MEDS ORDERED: *HR* HYDROcodone/Acet 5/325 mg TABLET PO PRN (14:23)
[2020-07-03 14:24] LABS: Lymphocytes # 1.7 K/mcL (0.6-4.6); Monocytes # 1.7 K/mcL (0.0-1.3); Neutrophils # 23.9 K/mcL (1.6-8.9)
[2020-07-03] MEDS ORDERED: Ipratropium/Albuterol Neb 3 ML IH PRN (14:25)
[2020-07-03 14:27] LABS: Toxic Granulation Present (Not Present)
[2020-07-03] MEDS ORDERED: Ringers Solution, Lactated 1,000 ML IVC SCH (14:30)
[2020-07-03 14:38] LABS: Adenovirus Not Detected (Not Detect); Coronavirus 229E Not Detected (Not Detect); Coronavirus HKU1 Not Detected (Not Detect); Coronavirus NL63 Not Detected (Not Detect); Coronavirus OC43 Not Detected (Not Detect); Human Metapneumovirus Not Detected (Not Detect); Human Rhinovirus/Enterovirus Not Detected (Not Detect)
[2020-07-03 14:39] LABS: Bordetella Pertussis Not Detected (Not Detect); Chlamydophila pneumoniae Not Detected (Not Detect); Influenza A Subtype 2009 H1 Not Detected (Not Detect); Influenza B Not Detected (Not Detect); Mycoplasma pneumoniae Not Detected (Not Detect); Parainfluenza Virus 1 Not Detected (Not Detect); Parainfluenza Virus 2 Not Detected (Not Detect); Parainfluenza Virus 3 Not Detected (Not Detect); Parainfluenza Virus 4 Not Detected (Not Detect); Respiratory Syncytial Virus Not Detected (Not Detect)
[2020-07-03 14:41] LABS: SARS-CoV-2 DETECTED (Not Detect)
[2020-07-03] MEDS ORDERED: 0.9 % Sodium Chloride 250 ML IVC SCH (15:00)
[2020-07-03] MEDS ORDERED: Dexamethasone 4 MG/ML VIAL IVP SCH (15:00)
[2020-07-03] MEDS ORDERED: Isovue-370 500 ML BOTTLE IVP ONE (15:20)
[2020-07-03 16:50] LABS: C-Reactive Protein 59 mg/L (Less than 10); Lactate Dehydrogenase 279 Units/L (140-271)
[2020-07-03 17:08] LABS: Ferritin 1341 ng/mL (20-250)
[2020-07-03] MEDS: *HR* Heparin 5,000 UNIT/ML VIAL SQ SCH (23:02)
[2020-07-04] MEDS: *HR* Heparin 5,000 UNIT/ML VIAL SQ SCH ×3 (05:50→22:14)
[2020-07-04 06:30] LABS: Hematocrit 31.6 % (37.5-50.1); Hemoglobin 10.4 g/dL (12.9-16.9); Mean Corpuscular HGB Conc 32.9 g/dL (31.6-35.5); Mean Corpuscular Volume 91.1 fL (83.0-100.0); Mean Platelet Volume 8.7 fL (9.4-12.4); Platelet Count 345 K/mcL (140-400); Red Blood Count 3.47 M/mcL (4.19-5.50); Red Cell Distribution Width 14.4 % (11.5-14.5); White Blood Count 24.4 K/mcL (4.3-11.1)
[2020-07-04 06:50] LABS: BUN/Creatinine Ratio 41 (6-26); Blood Urea Nitrogen 21 mg/dL (8-23); Calcium 7.1 mg/dL (8.6-10.3); Carbon Dioxide 26 mEq/L (23-29); Chloride 102 mEq/L (98-107); Glucose 110 mg/dL (70-105); Magnesium 2.2 mg/dL (1.6-2.6); Osmolality,Calculated 282 (280-300); Phosphorous 3.5 mg/dL (2.7-4.5); Potassium 4.4 mEq/L (3.5-5.1); Sodium 134 mEq/L (136-145); eGFR For African Americans > 60 (> 60); eGFR For Non-African Americans > 60 (> 60)
[2020-07-04 06:53] LABS: Neutrophils # 22.5 K/mcL (1.6-8.9)
[2020-07-04 06:54] LABS: Platelet Estimate Normal (Normal); Smudge Cells Present (Not Present); Toxic Vacuolation Present (Not Present)
[2020-07-04] MEDS ORDERED: Clotrimazole 1% CRM 15 GM TUBE TP PRN (07:42)
[2020-07-04] MEDS ORDERED: Sennosides/Docusate Sodium TABLET PO PRN (07:42)
[2020-07-04] MEDS ORDERED: IPRATROPIUM/ALBUTEROL SULFATE 120 PUFF INHALER IH PRN (07:58)
[2020-07-04] MEDS ORDERED: cefTRIAXone 1,000 MG in Water for inj. (sterile) 10 ML IVP SCH (09:00)
[2020-07-04] MEDS: Piperacillin/Tazobactam 3.375 GM in 0.9 % Sodium Chloride Mini Bag 100 ML IVPB SCH ×3 (09:15→23:30)
[2020-07-04] MEDS: allopurinoL 100 MG TABLET PO SCH ×2 (09:16→09:52)
[2020-07-04] MEDS: Cyanocobalamin (B-12) 1,000 MCG TABLET PO SCH ×2 (09:16→09:51)
[2020-07-04] MEDS: Dexamethasone 4 MG/ML VIAL IVP SCH (09:16)
[2020-07-04] MEDS: Aspirin Enteric Coated 81 MG Tablet PO SCH ×2 (09:16→09:51)
[2020-07-04] MEDS: Cholecalciferol (D-3) 1,000 UNIT (25MCG) TABLET PO SCH ×2 (09:16→09:51)
[2020-07-04] MEDS ORDERED: Tiotropium 18 MCG inhalation IH SCH (10:00)
[2020-07-04] MEDS: Budesonide/Formoterol 160/4.5 1 PUFF INH IH SCH ×2 (10:18→22:10)
[2020-07-04] MEDS ORDERED: Albumin 25% 25gram/100mL 25 GM/100 ML IV.SOLN IVPB ONE (11:00)
[2020-07-04] MEDS ORDERED: Acetaminophen IV 1,000 MG/100 ML BAG IVPB ONE (11:00)
[2020-07-04] MEDS ORDERED: 0.9 % Sodium Chloride 1,000 ML IVC SCH (17:00)
[2020-07-05] MEDS ORDERED: *HR* Metoprolol 5 MG/5 ML VIAL IVP ONE ×2 (00:35→02:57)
[2020-07-05 02:22] LABS: Red Cell Distribution Width 14.6 % (11.5-14.5)
[2020-07-05 02:24] LABS: Hematocrit 35.2 % (37.5-50.1); Hemoglobin 11.2 g/dL (12.9-16.9); Mean Corpuscular HGB Conc 31.8 g/dL (31.6-35.5); Mean Corpuscular Volume 94.4 fL (83.0-100.0); Platelet Count 446 K/mcL (140-400); Red Blood Count 3.73 M/mcL (4.19-5.50)
[2020-07-05 02:42] LABS: Alanine Aminotransferase 50 Units/L (7-52); Albumin 2.9 g/dL (3.5-5.7); Albumin/Globulin Ratio 1.2 (1.1-2.2); Alkaline Phosphatase 76 Units/L (34-104); Aspartate Amino Transferase 71 Units/L (13-39); BUN/Creatinine Ratio 62 (6-26); Bilirubin,Total 0.3 mg/dL (0.3-1.0); Blood Urea Nitrogen 32 mg/dL (8-23); Calcium 7.5 mg/dL (8.6-10.3); Carbon Dioxide 19 mEq/L (23-29); Chloride 105 mEq/L (98-107); Globulin 2.4 g/dL (2.4-3.5); Glucose 119 mg/dL (70-105); Osmolality,Calculated 290 (280-300); Potassium 4.8 mEq/L (3.5-5.1); Sodium 136 mEq/L (136-145); Total Protein 5.3 g/dL (6.4-8.9); White Blood Count 39.2 K/mcL (4.3-11.1); eGFR For African Americans > 60 (> 60); eGFR For Non-African Americans > 60 (> 60)
[2020-07-05 03:03] LABS: Lymphocytes # 1.6 K/mcL (0.6-4.6); Neutrophils # 36.9 K/mcL (1.6-8.9)
[2020-07-05 03:04] LABS: Platelet Estimate Normal (Normal)
[2020-07-05] MEDS: *HR* Heparin 5,000 UNIT/ML VIAL SQ SCH ×2 (05:49→13:18)
[2020-07-05] MEDS: Piperacillin/Tazobactam 3.375 GM in 0.9 % Sodium Chloride Mini Bag 100 ML IVPB SCH ×3 (08:49→23:14)
[2020-07-05] MEDS: Aspirin Enteric Coated 81 MG Tablet PO SCH (08:49)
[2020-07-05] MEDS: allopurinoL 100 MG TABLET PO SCH (08:49)
[2020-07-05] MEDS: Cholecalciferol (D-3) 1,000 UNIT (25MCG) TABLET PO SCH (08:49)
[2020-07-05] MEDS: Cyanocobalamin (B-12) 1,000 MCG TABLET PO SCH (08:50)
[2020-07-05] MEDS: Dexamethasone 4 MG/ML VIAL IVP SCH (08:51)
[2020-07-05] MEDS ORDERED: Tigecycline 100 MG in 0.9 % Sodium Chloride Mini Bag 100 ML IVPB ONE (12:39)
[2020-07-05] MEDS ORDERED: *HR* Metoprolol 5 MG/5 ML VIAL IVP PRN (13:16)
[2020-07-05] MEDS ORDERED: Tigecycline 100 MG in 0.9 % Sodium Chloride 100 ML IVPB ONE (13:30)
[2020-07-05] MEDS ORDERED: Fluconazole 200 MG/100 ML 200 MG/100 ML BAG IVPB SCH (13:30)
[2020-07-05] MEDS: Furosemide 20 MG/2 ML VIAL IVP ONE (16:37)
[2020-07-05] MEDS: *HR* Enoxaparin 80 MG/0.8 ML SYRINGE SQ SCH (17:43)
[2020-07-05] MEDS ORDERED: Remdesivir 200 MG in 0.9 % Sodium Chloride 210 ML IVPB ONE (21:00)
[2020-07-06] MEDS ORDERED: Acetaminophen IV 1,000 MG/100 ML BAG IVPB ONE (01:11)
[2020-07-06 02:20] LABS: INR 1.5; Prothrombin Time 17.1 Seconds (9.4-12.1)
[2020-07-06 02:22] LABS: Hemoglobin 10.8 g/dL (12.9-16.9); Nucleated Red Blood Cells 0.1 /100 WBC (0)
[2020-07-06 02:24] LABS: Hematocrit 34.7 % (37.5-50.1); Mean Corpuscular HGB Conc 31.1 g/dL (31.6-35.5); Mean Corpuscular Hemoglobin 30.9 pg (28.0-33.3); Mean Corpuscular Volume 99.1 fL (83.0-100.0); Mean Platelet Volume 9.3 fL (9.4-12.4); Platelet Count 382 K/mcL (140-400); Red Cell Distribution Width 14.9 % (11.5-14.5)
[2020-07-06 02:35] LABS: Alanine Aminotransferase 52 Units/L (7-52); Albumin 2.7 g/dL (3.5-5.7); Albumin/Globulin Ratio 1.2 (1.1-2.2); Alkaline Phosphatase 73 Units/L (34-104); Aspartate Amino Transferase 67 Units/L (13-39); BUN/Creatinine Ratio 73 (6-26); Bilirubin,Total 0.2 mg/dL (0.3-1.0); Blood Urea Nitrogen 62 mg/dL (8-23); Calcium 7.4 mg/dL (8.6-10.3); Carbon Dioxide 22 mEq/L (23-29); Chloride 111 mEq/L (98-107); Globulin 2.3 g/dL (2.4-3.5); Glucose 159 mg/dL (70-105); Osmolality,Calculated 315 (280-300); Potassium 5.4 mEq/L (3.5-5.1); Sodium 142 mEq/L (136-145); eGFR For African Americans > 60 (> 60); eGFR For Non-African Americans > 60 (> 60)
[2020-07-06 02:51] LABS: White Blood Count 32.2 K/mcL (4.3-11.1)
[2020-07-06 03:16] LABS: Anisocytosis 1+ (Not Present); Lymphocytes # 2.6 K/mcL (0.6-4.6); Monocytes # 1.9 K/mcL (0.0-1.3); Neutrophils # 27.1 K/mcL (1.6-8.9); Platelet Estimate Normal (Normal); Smudge Cells Present (Not Present)
[2020-07-06] MEDS: Furosemide 20 MG/2 ML VIAL IVP SCH ×2 (04:38→07:38)
[2020-07-06] MEDS: *HR* Enoxaparin 80 MG/0.8 ML SYRINGE SQ SCH (04:49)
[2020-07-06] MEDS ORDERED: Acetaminophen IV 500 MG/50 ML BAG IVPB ONE (05:52)
[2020-07-06] MEDS: Furosemide 20 MG/2 ML VIAL IVP ONE (06:37)
[2020-07-06] MEDS: Cyanocobalamin (B-12) 1,000 MCG TABLET PO SCH (07:38)
[2020-07-06] MEDS: Aspirin Enteric Coated 81 MG Tablet PO SCH (07:38)
[2020-07-06] MEDS: Cholecalciferol (D-3) 1,000 UNIT (25MCG) TABLET PO SCH (07:38)
[2020-07-06] MEDS: allopurinoL 100 MG TABLET PO SCH (07:39)
[2020-07-06] MEDS ORDERED: Albumin 25% 25gram/100mL 25 GM/100 ML IV.SOLN IVPB ONE (07:40)
[2020-07-06] MEDS ORDERED: Tigecycline 50 MG in 0.9 % Sodium Chloride Mini Bag 100 ML IVPB SCH (08:00)
[2020-07-06 09:00] VITALS: BP 66/40
[2020-07-06] MEDS: Piperacillin/Tazobactam 3.375 GM in 0.9 % Sodium Chloride Mini Bag 100 ML IVPB SCH (09:12)
[2020-07-06] MEDS: Dexamethasone 4 MG/ML VIAL IVP SCH (09:12)
[2020-07-06] MEDS ORDERED: Atropine Sulfate 1% 40 DROP/2 ML BOTTLE SL PRN (09:27)
[2020-07-06] MEDS ORDERED: *HR* LORazepam 2 MG/ML VIAL IVP PRN (09:27)
[2020-07-06] MEDS: Morphine Sulfate 2 MG/ML SYRINGE IVP PRN ×2 (10:11→13:24)
[2020-07-06] MEDS ORDERED: Remdesivir 100 MG in 0.9 % Sodium Chloride 230 ML IVPB SCH (21:00)
[2020-07-07 05:41] LABS: Acinetobacter baumannii by PCR Not Detected (Not Detect); Enterobacter cloacae Cmplx PCR Not Detected (Not Detect); Enterobacteriaceae by PCR Not Detected (Not Detect); Enterococcus by PCR Not Detected (Not Detect); Staphylococcus aureus by PCR Not Detected (Not Detect); Staphylococcus by PCR DETECTED (Not Detect); Streptococcus agalactiae(B)PCR Not Detected (Not Detect); Streptococcus by PCR Not Detected (Not Detect); Streptococcus pneumoniae PCR Not Detected (Not Detect); Streptococcus pyogenes (A) PCR Not Detected (Not Detect); mecA Methicillin-Resist Gene DETECTED (Not Detect)
[2020-07-07 05:42] LABS: Candida albicans by PCR Not Detected (Not Detect); Candida glabrata by PCR Not Detected (Not Detect); Candida krusei by PCR Not Detected (Not Detect); Candida parapsilosis by PCR Not Detected (Not Detect); Candida tropicalis by PCR Not Detected (Not Detect); Escherichia coli by PCR Not Detected (Not Detect); Klebsiella oxytoca by PCR Not Detected (Not Detect); Klebsiella pneumoniae by PCR Not Detected (Not Detect); Proteus by PCR Not Detected (Not Detect); Pseudomonas aeruginosa by PCR Not Detected (Not Detect); Serratia marcescens by PCR Not Detected (Not Detect)
== END 2020-07-06 14:29 | disposition expired | DRG 871 ==
LOC: EMEROOARM 11:17 → 2NENU 11:17 → SUATTDRO 14:58 → 2NENU 16:10 → SUATTDRO 07-04 12:37
PROVIDERS: ADMIT Internal Medicine; ATTEND Internal Medicine